=== PATIENT | female | born 1975 | race American Indian/Alaskan Native ===

== ENCOUNTER 2017-10-02 11:30 | Emergency (ER) | payer OTHER ==
[2017-10-02 11:43] VITALS: BP 134/89
--- NOTE | 2017-10-02 12:17 | EDM.PDOC ---
ED HPI GENERAL MEDICAL PROBLEM - General Chief Complaint: Respiratory Problem Stated Complaint: BODY ACHES AND SHOULDER PAIN Time Seen by Provider: 10/02/17 11:44 Source of Information: Reports: Patient History Limitations: Reports: No Limitations - History of Present Illness INITIAL COMMENTS - FREE TEXT/NARRATIVE: Patient is a 42-year-old female comes in today for general body aches and pains. She states she started to feel sick on Thursday 6 days ago and was seen at [facility] on Thursday 3 days ago. She states she had an x-ray at the clinic where they diagnosed right-sided pneumonia as well as a UTI. She was prescribed an albuterol inhaler, acetaminophen 500mg, Phenazopyridine 200mg, Montelukast 10mg, and Levofloxacin 500mg. She states she has been taking all of the medication as prescribed, but has had no relief. She states that it is because continuing to get worse and states she has both pleuritic chest pain as well as right shoulder pain that are currently 10/10. She states she can't sleep at night because of this pain. She does not take any over the counter medications for pain. She states she has fever, chills, nausea, cough with some blood tinged sputum, dizziness upon standing, difficulty walking/unable to drive , and has been around sick contacts with the flu, but not similar symptoms. She denies anorexia, vomiting, diarrhea, bloody stool, dysurea, trauma, headache. She is a smoker, 2-3 per day x2 years, with her last cigarette this past Thursday. No other complaints at this time. Right Shoulder Pain Score (Numeric/FACES): 10 - Related Data Allergies Allergy/AdvReac Type Severity Reaction Status Date / Time No Known Allergies Allergy Verified 05/13/16 17:01 Home Meds: Home Meds Acetaminophen [Mapap] 500 mg PO Q6H PRN 10/02/17 [History] Albuterol [Proair HFA] 2 puff INH Q4H 10/02/17 [History] Levofloxacin 500 mg PO DAILY 10/02/17 [History] Montelukast [Singulair] 10 mg PO BEDTIME 10/02/17 [History] Phenazopyridine [Pyridium] 200 mg PO BID 10/02/17 [History] Past Medical History - Past Health History Medical/Surgical History: Denies Medical/Surgical History Endocrine/Metabolic History: Reports: Obesity/BMI 30+ - Past Surgical History Musculoskeletal Surgical History: Reports: ORIF Social & Family History - Tobacco Use Smoking Status *Q: Current Every Day Smoker Years of Tobacco use: 2 Packs/Tins Daily: 0.3 - Caffeine Use Caffeine Use: Reports: Coffee, Energy Drinks, Soda - Recreational Drug Use Recreational Drug Use: No - Living Situation & Occupation Living situation: Reports: Single, with Family Occupation: Employed ED ROS GENERAL - Review of Systems Review Of Systems: See Below Constitutional: Reports: Fever, Chills, Diaphoresis. Denies: Decreased Appetite HEENT: Reports: Vertigo (dizziness with standing) Respiratory: Reports: Pleuritic Chest Pain (05/05), Cough, Sputum (blood-tinged) Cardiovascular: Reports: No Symptoms Endocrine: Reports: No Symptoms GI/Abdominal: Reports: Nausea. Denies: Abdominal Pain, Anorexia, Bloody Stool, Constipation, Diarrhea, Decreased Appetite, Vomiting : Reports: No Symptoms. Denies: Dysuria, Flank Pain, Hematuria Musculoskeletal: Reports: Shoulder Pain (R shoulder) Skin: Reports: No Symptoms Neurological: Reports: Dizziness (upon standing only), Difficulty Walking (due to pain in general). Denies: Confusion, Headache, Weakness Psychiatric: Reports: Other (tearful) Hematologic/Lymphatic: Reports: No Symptoms Immunologic: Reports: No Symptoms ED EXAM, GENERAL - Physical Exam Exam: See Below Exam Limited By: No Limitations General Appearance: Alert, WD/WN, Severe Distress, Obese Eye Exam: Bilateral Eye: Normal Inspection Ears: Normal External Exam Nose: Normal Inspection Throat/Mouth: Normal Inspection Head: Atraumatic, Normocephalic Neck: Normal Inspection, Supple, Non-Tender, Full Range of Motion Respiratory/Chest: Lungs Clear, Normal Breath Sounds, Other (there is some tenderness of the R shoulder superiorly, moderately severe pain with motion of the R arm). No: Decreased Breath Sounds, Rhonchi, Wheezing Cardiovascular: Normal Peripheral Pulses, Regular Rate, Rhythm GI/Abdominal: Normal Bowel Sounds, Soft, Non-Tender, No Mass. No: Mass Back Exam: Normal Inspection, Full Range of Motion (some pain with movement). No: CVA Tenderness (L), CVA Tenderness (R) Extremities: Normal Inspection, Normal Range of Motion, Non-Tender, Normal Capillary Refill, Other (right shoulder pain 10/10, constant, tender to palpation, difficulty moving arm. ). No: Leg Pain, Increased Warmth, Redness Neurological: Alert, Oriented, No Motor/Sensory Deficits Psychiatric: Normal Affect, Tearful Skin Exam: Warm, Dry, Intact, Other (acanthosis nigricans on back) Lymphatic: No Adenopathy Course - Vital Signs Last Recorded V/S: Last Vital Signs Temp 97.9 F 10/02/17 11:42 Pulse 90 10/02/17 11:42 Resp 20 10/02/17 11:42 BP 134/89 10/02/17 11:42 Pulse Ox 96 10/02/17 11:42 - Orders/Labs/Meds Orders: Active Orders 24 hr Category Date Time Status Peripheral IV Care [RC] . DIRECTED Care 10/02/17 13:32 Active Sodium Chloride 0.9% [Normal Saline] 1,000 ml Med 10/02/17 15:00 Active IV ASDIRECTED Sodium Chloride 0.9% [Normal Saline] 100 ml Med 10/02/17 14:00 Active IV ASDIRECTED Sodium Chloride 0.9% [Saline Flush] Med 10/02/17 13:32 Active 10 ml FLUSH ASDIRECTED PRN Sodium Chloride 0.9% [Saline Flush] Med 10/02/17 13:46 Active 10 ml FLUSH ONETIME PRN Peripheral IV Insertion Adult [OM.PC] Stat Oth 10/02/17 13:32 Ordered Medication Orders Sodium Chloride (Normal Saline) 100 mls @ 65 mls/hr IV ASDIRECTED [facility] Last Admin: 10/02/17 14:21 Dose: 65 mls/hr Sodium Chloride (Normal Saline) 1,000 mls @ 150 mls/hr IV ASDIRECTED NICOLE Last Admin: 10/02/17 14:40 Dose: 150 mls/hr Sodium Chloride (Saline Flush) 10 ml FLUSH ASDIRECTED PRN PRN Reason: Keep Vein Open Last Admin: 10/02/17 14:26 Dose: 10 ml Sodium Chloride (Saline Flush) 10 ml FLUSH ONETIME PRN PRN Reason: IV FLUSH Last Admin: 10/02/17 14:21 Dose: 10 ml Labs: Laboratory Tests 10/02/17 10/02/17 10/02/17 Range/Units 12:52 12:52 12:52 WBC 9.16 (3.98-10.04) K/mm3 RBC 4.56 (3.98-5.22) M/mm3 Hgb 13.3 (11.2-15.7) gm/L Hct 39.6 (34.1-44.9) % MCV 86.8 (79.4-94.8) fl MCH 29.2 (25.6-32.2) pg MCHC 33.6 (32.2-35.5) g/dl RDW Std Deviation 41.6 (36.4-46.3) fL Plt Count 134 L (182-369) K/mm3 MPV 10.3 (9.4-12.3) fl Neutrophils % (Manual) 61 H (40-60) % Band Neutrophils % 0 (0-10) % Lymphocytes % (Manual) 34 (20-40) % Atypical Lymphs % 0 % Monocytes % (Manual) 5 (2-10) % Eosinophils % (Manual) 0 L (0.7-5.8) % Basophils % (Manual) 0 L (0.1-1.2) Platelet Estimate Adequate RBC Morph Comment Normal D-Dimer, Quantitative (0.19-0.59) mg/L Sodium 138 (136-145) mEq/L Potassium 3.4 L (3.5-5.1) mEq/L Chloride 103 (98-107) mEq/L Carbon Dioxide 26 (21-32) mEq/L Anion Gap 12.4 (5-15) BUN 14 (7-18) mg/dL Creatinine 0.7 (0.55-1.02) mg/dL Est Cr Clr Drug Dosing 111.65 mL/min Estimated GFR (MDRD) > 60 (>60) mL/min BUN/Creatinine Ratio 20.0 H (14-18) Glucose 135 H (74-106) mg/dL Calcium 8.4 L (8.5-10.1) mg/dL Total Bilirubin 0.5 (0.2-1.0) mg/dL AST 36 (15-37) U/L ALT 50 (14-59) U/L Alkaline Phosphatase 75 (46-116) U/L C-Reactive Protein 6.0 H* (<1.0) mg/dL Total Protein 6.7 (6.4-8.2) g/dl Albumin 2.3 L (3.4-5.0) g/dl Globulin 4.4 gm/dL Albumin/Globulin Ratio 0.5 L (1-2) Urine Color (Yellow) Urine Appearance (Clear) Urine pH (5.0-8.0) Ur Specific [place] (1.005-1.030) Urine Protein (Negative) Urine Glucose (UA) (Negative) Urine Ketones (Negative) Urine Occult Blood (Negative) Urine Nitrite (Negative) Urine Bilirubin (Negative) Urine Urobilinogen (0.2-1.0) Ur Leukocyte Esterase (Negative) Urine HCG, Qual (NEGATIVE) 10/02/17 10/02/17 10/02/17 Range/Units 12:52 13:40 13:40 WBC (3.98-10.04) K/mm3 RBC (3.98-5.22) M/mm3 Hgb (11.2-15.7) gm/L Hct (34.1-44.9) % MCV (79.4-94.8) fl MCH (25.6-32.2) pg MCHC (32.2-35.5) g/dl RDW Std Deviation (36.4-46.3) fL Plt Count (182-369) K/mm3 MPV (9.4-12.3) fl Neutrophils % (Manual) (40-60) % Band Neutrophils % (0-10) % Lymphocytes % (Manual) (20-40) % Atypical Lymphs % % Monocytes % (Manual) (2-10) % Eosinophils % (Manual) (0.7-5.8) % Basophils % (Manual) (0.1-1.2) Platelet Estimate RBC Morph Comment D-Dimer, Quantitative 1.28 H (0.19-0.59) mg/L Sodium (136-145) mEq/L Potassium (3.5-5.1) mEq/L Chloride (98-107) mEq/L Carbon Dioxide (21-32) mEq/L Anion Gap (5-15) BUN (7-18) mg/dL Creatinine (0.55-1.02) mg/dL Est Cr Clr Drug Dosing mL/min Estimated GFR (MDRD) (>60) mL/min BUN/Creatinine Ratio (14-18) Glucose (74-106) mg/dL Calcium (8.5-10.1) mg/dL Total Bilirubin (0.2-1.0) mg/dL AST (15-37) U/L ALT (14-59) U/L Alkaline Phosphatase (46-116) U/L C-Reactive Protein (<1.0) mg/dL Total Protein (6.4-8.2) g/dl Albumin (3.4-5.0) g/dl Globulin gm/dL Albumin/Globulin Ratio (1-2) Urine Color Dark yellow (Yellow) Urine Appearance Clear (Clear) Urine pH 7.0 (5.0-8.0) Ur Specific [place] 1.015 (1.005-1.030) Urine Protein 1+ H (Negative) Urine Glucose (UA) Trace H (Negative) Urine Ketones Negative (Negative) Urine Occult Blood Trace-intact H (Negative) Urine Nitrite Positive H (Negative) Urine Bilirubin Negative (Negative) Urine Urobilinogen 1.0 (0.2-1.0) Ur Leukocyte Esterase Negative (Negative) Urine HCG, Qual Negative (NEGATIVE) Meds: Medications Generic Name Dose Route Start Last Admin Trade Name Freq PRN Reason Stop Dose Admin Sodium Chloride 100 mls @ 65 mls/hr 10/02/17 14:00 10/02/17 14:21 Normal Saline IV 65 mls/hr ASDIRECTED NICOLE Administration Sodium Chloride 1,000 mls @ 150 mls/hr 10/02/17 15:00 10/02/17 14:40 Normal Saline IV 150 mls/hr ASDIRECTED NICOLE Administration Sodium Chloride 10 ml 10/02/17 13:32 10/02/17 14:26 Saline Flush FLUSH 10 ml ASDIRECTED PRN Administration Keep Vein Open Sodium Chloride 10 ml 10/02/17 13:46 10/02/17 14:21 Saline Flush FLUSH 10 ml ONETIME PRN Administration IV FLUSH Discontinued Medications Generic Name Dose Route Start Last Admin Trade Name Freq PRN Reason Stop Dose Admin Hydrocodone Bitart/Acetaminophen 1 tab 10/02/17 12:40 10/02/17 12:54 [place] 325-5 Mg PO 10/02/17 12:41 1 tab ONETIME ONE Administration Sodium Chloride 500 mls @ 999 mls/hr 10/02/17 13:32 10/02/17 13:53 Normal Saline IV 10/02/17 14:02 999 mls/hr .BOLUS ONE Administration Iopamidol 100 ml 10/02/17 13:46 10/02/17 14:21 [id number] (76%) IVPUSH 10/02/17 13:47 100 ml ONETIME ONE Administration Iopamidol 50 ml 10/02/17 13:46 10/02/17 14:21 Isovue-370 (76%) IVPUSH 10/02/17 13:47 50 ml ONETIME ONE Administration Ketorolac Tromethamine 60 mg 10/02/17 12:39 10/02/17 12:55 Toradol IM 10/02/17 12:40 60 mg ONETIME ONE Administration Lorazepam 1 mg 10/02/17 12:40 10/02/17 12:54 Ativan PO 10/02/17 12:41 1 mg ONETIME ONE Administration Morphine Sulfate 10 mg 10/02/17 13:32 10/02/17 13:55 Morphine IVPUSH 10/02/17 13:33 10 mg ONETIME ONE Administration Ondansetron HCl 4 mg 10/02/17 14:00 10/02/17 14:25 Zofran IVPUSH 10/02/17 14:01 4 mg ONETIME ONE Administration - Re-Assessments/Exams Free Text/Narrative Re-Assessment/Exam: 10/02/17 14:14 WBC 9,000, normal dif, CRP mildly elevated at 6. CXR shows multiple areas of patchy infiltrate L lung field, see Radiology report for details. D dimer elevated at 1.2. Torodol IM, hydrocodone, ativan PO has not noticeably helped her pain, Will give morphine 5 mg IV, will check CT pul angio to R/O PE, to R/ O mets to lung. 10/02/17 15:44. CT shows multiple bilat. nodules, question etiology, may be infections but may also be mets, see Radiology report for details, will transfer to [facility] per patient request to sort this out, R/O or in metastatic disease, establish true dx. Dr Peterson, Hospitalist accepting Physician. She has had 10 mg morphine in addition to intial meds given, pain is once again getting worse, giving an addition 4 mg morphine IV now. Will transfer by ground ambulance for appropriate cardioresp. monitering, pain control for transfer. Departure - Departure Time of Disposition: 16:12 Disposition: DC/Tfer to [facility] 02 Condition: Serious Clinical Impression: Multiple lung nodules on CT, Atypical chest pain - Discharge Information Referrals: PCP,None [Primary Care Provider] - Forms: ED Department Discharge - My Orders Last 24 Hours: My Active Orders 10/02/17 13:32 Peripheral IV Care [RC] . DIRECTED Sodium Chloride 0.9% [Saline Flush] 10 ml FLUSH ASDIRECTED PRN Peripheral IV Insertion Adult [OM.PC] Stat 10/02/17 13:46 Sodium Chloride 0.9% [Saline Flush] 10 ml FLUSH ONETIME PRN 10/02/17 14:00 Sodium Chloride 0.9% [Normal Saline] 100 ml IV ASDIRECTED 10/02/17 15:00 Sodium Chloride 0.9% [Normal Saline] 1,000 ml IV ASDIRECTED - Assessment/Plan Last 24 Hours: My Active Orders 10/02/17 13:32 Peripheral IV Care [RC] . DIRECTED Sodium Chloride 0.9% [Saline Flush] 10 ml FLUSH ASDIRECTED PRN Peripheral IV Insertion Adult [OM.PC] Stat 10/02/17 13:46 Sodium Chloride 0.9% [Saline Flush] 10 ml FLUSH ONETIME PRN 10/02/17 14:00 Sodium Chloride 0.9% [Normal Saline] 100 ml IV ASDIRECTED 10/02/17 15:00 Sodium Chloride 0.9% [Normal Saline] 1,000 ml IV ASDIRECTED
[2017-10-02] MEDS ORDERED: Ketorolac 60 MG/2 ML SDV IM ONE (12:39)
[2017-10-02] MEDS ORDERED: LORazepam 1 MG Tab PO ONE (12:40)
[2017-10-02] MEDS ORDERED: Acetaminophen/HYDROcodone 325-5 MG Tab PO ONE (12:40)
--- NOTE | 2017-10-02 13:08 | CR ---
Chest: Two views of the chest were obtained. Comparison: Prior chest x-ray of 08/11/16. Patchy nodular densities are seen within the left lung. Small area of consolidation noted within the right upper lung. Heart size and mediastinum are normal. Bony structures are unremarkable. Impression: 1. Patchy nodular densities within the left lung as well as area of consolidation within the right upper lung. Findings most likely represent multifocal areas of pneumonia. Recommend follow-up chest x-ray after clinical therapy is complete to make sure this does not represent other etiology. Diagnostic code #3
[2017-10-02] MEDS ORDERED: Sodium Chloride 0.9% 10 ML Syringe FLUSH PRN ×2 (13:32→13:46)
[2017-10-02] MEDS ORDERED: Sodium Chloride 0.9% 500 ML IV ONE (13:32)
[2017-10-02] MEDS ORDERED: Iopamidol 755 Mg/ML 100 ML Bottle IVPUSH ONE (13:46)
[2017-10-02] MEDS ORDERED: Iopamidol 755 MG/ML 50 ML Bottle IVPUSH ONE (13:46)
[2017-10-02] MEDS: Morphine 10 MG/ML Syringe IVPUSH ONE ×2 (13:55→17:00)
[2017-10-02] MEDS ORDERED: Morphine 10 MG/ML Syringe IVPUSH STA ×2 (13:55→15:12)
[2017-10-02] MEDS ORDERED: Sodium Chloride 0.9% 100 ML IV SCH (14:00)
[2017-10-02] MEDS ORDERED: Ondansetron 4 MG/2 ML SDV IVPUSH ONE (14:00)
--- NOTE | 2017-10-02 14:45 | CT ---
CT chest Technique: Multiple axial sections through the chest were obtained. Intravenous contrast was utilized. Study performed as a pulmonary angiogram protocol. Findings: Pulmonary arteries are not optimally opacified. No filling defects are seen to indicate pulmonary embolism within the main pulmonary arteries or within segmental branches. Smaller subsegmental pulmonary emboli could easily be missed. Mediastinum and hilar regions show no adenopathy or mass. No pericardial thickening is seen. Small portion of the visualized upper abdominal structures are within normal limits. Small bilateral pleural effusions are seen. Nodular densities are seen within both lungs. More focal consolidation noted within the right upper lung. Findings could represent septic emboli, atypical pneumonia as well as multifocal pneumonia. Fungal infection is also a possibility as well as metastatic disease. Bone window settings were reviewed which shows no thickening acute. Impression: 1. Less than optimal opacification of the pulmonary arteries. No findings of pulmonary embolism within the main or segmental branches. Smaller subsegmental pulmonary emboli could easily be missed. 2. Numerous nodular densities within both lungs with more focal consolidation within the upper right lung. Differential as described above. Diagnostic code #9
[2017-10-02] MEDS ORDERED: Sodium Chloride 0.9% 1,000 ML IV SCH (15:00)
[2017-10-02] MEDS ORDERED: Morphine 4 MG/ML Syringe IVPUSH ONE (16:07)
[2017-10-02] MEDS ORDERED: Morphine 4 MG/ML Syringe ONE (16:14)
== END 2017-10-02 16:15 ==
LOC: JD.ED 11:30
DX: R07.89 Other chest pain (principal); M25.511 Pain in right shoulder; R91.1 Solitary pulmonary nodule; F17.210 Nicotine dependence, cigarettes, uncomplicated; Z79.2 Long term (current) use of antibiotics
CPT/HCPCS: 36415; 71046; 71275; 80053; 81003; 81025; 85025; 85379; 86140; 87804; 96361; 96372; 96374; 96375; 96376; 99285; A9270; J1885; J2270; J2405; J7030; J7040; J7050; Q9967

== ENCOUNTER 2017-10-26 13:22 | Emergency (ER) | payer OTHER ==
[2017-10-26 13:41] VITALS: BP 113/58
[2017-10-26] MEDS ORDERED: Sodium Chloride 0.9% 1,000 ML IV STA (13:41)
[2017-10-26] MEDS ORDERED: Ondansetron 4 MG/2 ML SDV IVPUSH ONE (13:41)
[2017-10-26] MEDS ORDERED: Sodium Chloride 0.9% 10 ML Syringe FLUSH PRN ×2 (13:41→14:22)
[2017-10-26] MEDS ORDERED: HYDROmorphone 0.5 MG/0.5 ML SYRINGE IVPUSH ONE ×2 (13:43→16:10)
[2017-10-26] MEDS ORDERED: Diatrizoate Meglumine/Diatrizoate Sodium 37% 120 ML Bottle PO ONE (14:22)
[2017-10-26] MEDS ORDERED: Iopamidol 612 MG/ML 150 ML Bottle IVPUSH ONE (14:22)
--- NOTE | 2017-10-26 14:45 | EDM.PDOC ---
ED HPI GENERAL MEDICAL PROBLEM - General Chief Complaint: Abdominal Pain Stated Complaint: L SIDE ABD PAIN Time Seen by Provider: 10/26/17 13:37 Source of Information: Reports: Patient History Limitations: Reports: No Limitations - History of Present Illness INITIAL COMMENTS - FREE TEXT/NARRATIVE: The patient presents with left upper abdominal pain. This started a couple days ago. She has nausea but no vomiting. She has been able to eat but she gets more nauseated. She has no fever, chills, cough, chest pain, dysuria or diarrhea. She still has her gallbladder and appendix. She does not think she is . Onset: Gradual Duration: Day(s): (2) Location: Reports: Abdomen (LUQ) Quality: Reports: Sharp Severity: Severe Improves with: Reports: None Worsens with: Reports: None Associated Symptoms: Reports: Nausea/Vomiting. Denies: Chest Pain, Cough, Fever /Chills, Headaches, Shortness of Breath Left Abdominal Pain Score (Numeric/FACES): 10 - Related Data Allergies Allergy/AdvReac Type Severity Reaction Status Date / Time No Known Allergies Allergy Verified 10/26/17 13:37 Home Meds: Home Meds Hydrocodone/Acetaminophen [Hydrocodon-Acetaminophen 5-325] 1 - 2 each PO Q6HR PRN #20 tablet 10/26/17 [Rx] Omeprazole Magnesium [Prilosec Otc] 20 mg PO DAILY #14 tablet.dr 10/26/17 [Rx] Ondansetron [Zofran ODT] 4 mg PO Q6H PRN #20 tab.dis 10/26/17 [Rx] Potassium Chloride 20 meq PO DAILY #30 tablet.er 10/26/17 [Rx] metFORMIN [Glucophage XR] 500 mg PO DAILY #30 tab.er 10/26/17 [Rx] Past Medical History - Past Health History Medical/Surgical History: Denies Medical/Surgical History Endocrine/Metabolic History: Reports: Obesity/BMI 30+ - Past Surgical History Musculoskeletal Surgical History: Reports: ORIF Social & Family History - Tobacco Use Smoking Status *Q: Current Every Day Smoker Years of Tobacco use: 20 Packs/Tins Daily: 0.1 - Caffeine Use Caffeine Use: Reports: Coffee, Energy Drinks, Soda - Recreational Drug Use Recreational Drug Use: No - Living Situation & Occupation Living situation: Reports: Single, with Family Occupation: Employed ED ROS GENERAL - Review of Systems Review Of Systems: See Below Constitutional: Reports: No Symptoms HEENT: Reports: No Symptoms Respiratory: Reports: No Symptoms Cardiovascular: Reports: No Symptoms Endocrine: Reports: No Symptoms GI/Abdominal: Reports: Abdominal Pain, Nausea. Denies: Diarrhea, Vomiting : Reports: No Symptoms Musculoskeletal: Reports: No Symptoms ED EXAM, GI/ABD - Physical Exam Exam: See Below Exam Limited By: No Limitations General Appearance: Alert, No Apparent Distress Ears: Normal External Exam Nose: Normal Inspection Head: Atraumatic, Normocephalic Neck: Normal Inspection Respiratory/Chest: No Respiratory Distress, Lungs Clear, Normal Breath Sounds Cardiovascular: Regular Rate, Rhythm, No Edema, No Murmur GI/Abdominal Exam: Soft, No Organomegaly, No Mass, Tender (Moderate tenderness to the LUQ) Back Exam: Normal Inspection Extremities: Normal Inspection Neurological: Alert, Oriented, No Motor/Sensory Deficits Course - Vital Signs Last Recorded V/S: Last Vital Signs Temp 95.3 F L 10/26/17 13:37 Pulse 115 H 10/26/17 13:37 Resp 20 10/26/17 13:37 BP 113/58 L 10/26/17 13:37 Pulse Ox 96 10/26/17 13:37 - Orders/Labs/Meds Orders: Active Orders 24 hr Category Date Time Status Peripheral IV Care [RC] . DIRECTED Care 10/26/17 13:42 Active UA W/MICROSCOPIC [URIN] Stat Lab 10/26/17 16:17 Ordered Sodium Chloride 0.9% [Saline Flush] Med 10/26/17 13:41 Active 10 ml FLUSH ASDIRECTED PRN Sodium Chloride 0.9% [Saline Flush] Med 10/26/17 14:22 Active 10 ml FLUSH ONETIME PRN ED Antiemetic Medication Reflex [OM.PC] Stat Oth 10/26/17 13:41 Ordered Peripheral IV Insertion Adult [OM.PC] Stat Oth 10/26/17 13:41 Ordered Medication Orders Sodium Chloride (Saline Flush) 10 ml FLUSH ASDIRECTED PRN PRN Reason: Keep Vein Open Last Admin: 10/26/17 14:05 Dose: 10 ml Sodium Chloride (Saline Flush) 10 ml FLUSH ONETIME PRN PRN Reason: IV FLUSH Last Admin: 10/26/17 15:07 Dose: 10 ml Labs: Laboratory Tests 10/26/17 10/26/17 10/26/17 Range/Units 14:35 14:35 14:35 WBC 10.38 H (3.98-10.04) K/mm3 RBC 4.68 (3.98-5.22) M/mm3 Hgb 13.8 (11.2-15.7) gm/L Hct 41.7 (34.1-44.9) % MCV 89.1 (79.4-94.8) fl MCH 29.5 (25.6-32.2) pg MCHC 33.1 (32.2-35.5) g/dl RDW Std Deviation 46.5 H (36.4-46.3) fL Plt Count 206 (182-369) K/mm3 MPV 8.9 L (9.4-12.3) fl Neut % (Auto) 92.4 H (34.0-71.1) % Lymph % (Auto) 4.3 L (19.3-51.7) % [place] % (Auto) 2.5 L (4.7-12.5) % Eos % (Auto) 0.3 L (0.7-5.8) Baso % (Auto) 0.1 (0.1-1.2) % Neut # (Auto) 9.59 H (1.56-6.13) K/mm3 Lymph # (Auto) 0.45 L (1.18-3.74) K/mm3 [place] # (Auto) 0.26 (0.24-0.36) K/mm3 Eos # (Auto) 0.03 L (0.04-0.36) K/mm3 Baso # (Auto) 0.01 (0.01-0.08) K/mm3 Manual Slide Review Normal smear Sodium 139 (136-145) mEq/L Potassium 2.9 L (3.5-5.1) mEq/L Chloride 102 (98-107) mEq/L Carbon Dioxide 23 (21-32) mEq/L Anion Gap 16.9 H (5-15) BUN 11 (7-18) mg/dL Creatinine 1.3 H (0.55-1.02) mg/dL Est Cr Clr Drug Dosing 60.12 mL/min Estimated GFR (MDRD) 45 (>60) mL/min BUN/Creatinine Ratio 8.5 L (14-18) Glucose 200 H (74-106) mg/dL Hemoglobin A1c (4.50-6.20) % Calcium 8.8 (8.5-10.1) mg/dL Total Bilirubin 1.7 H (0.2-1.0) mg/dL AST 43 H (15-37) U/L ALT 49 (14-59) U/L Alkaline Phosphatase 96 (46-116) U/L Troponin I < 0.017 (0.00-0.056) ng/mL Total Protein 8.2 (6.4-8.2) g/dl Albumin 3.0 L (3.4-5.0) g/dl Globulin 5.2 gm/dL Albumin/Globulin Ratio 0.6 L (1-2) Lipase 60 L (73-393) U/L HCG, Qual Negative (NEGATIVE) 10/26/17 Range/Units 14:35 WBC (3.98-10.04) K/mm3 RBC (3.98-5.22) M/mm3 Hgb (11.2-15.7) gm/L Hct (34.1-44.9) % MCV (79.4-94.8) fl MCH (25.6-32.2) pg MCHC (32.2-35.5) g/dl RDW Std Deviation (36.4-46.3) fL Plt Count (182-369) K/mm3 MPV (9.4-12.3) fl Neut % (Auto) (34.0-71.1) % Lymph % (Auto) (19.3-51.7) % [place] % (Auto) (4.7-12.5) % Eos % (Auto) (0.7-5.8) Baso % (Auto) (0.1-1.2) % Neut # (Auto) (1.56-6.13) K/mm3 Lymph # (Auto) (1.18-3.74) K/mm3 [place] # (Auto) (0.24-0.36) K/mm3 Eos # (Auto) (0.04-0.36) K/mm3 Baso # (Auto) (0.01-0.08) K/mm3 Manual Slide Review Sodium (136-145) mEq/L Potassium (3.5-5.1) mEq/L Chloride (98-107) mEq/L Carbon Dioxide (21-32) mEq/L Anion Gap (5-15) BUN (7-18) mg/dL Creatinine (0.55-1.02) mg/dL Est Cr Clr Drug Dosing mL/min Estimated GFR (MDRD) (>60) mL/min BUN/Creatinine Ratio (14-18) Glucose (74-106) mg/dL Hemoglobin A1c 6.60 H (4.50-6.20) % Calcium (8.5-10.1) mg/dL Total Bilirubin (0.2-1.0) mg/dL AST (15-37) U/L ALT (14-59) U/L Alkaline Phosphatase (46-116) U/L Troponin I (0.00-0.056) ng/mL Total Protein (6.4-8.2) g/dl Albumin (3.4-5.0) g/dl Globulin gm/dL Albumin/Globulin Ratio (1-2) Lipase (73-393) U/L HCG, Qual (NEGATIVE) Meds: Medications Generic Name Dose Route Start Last Admin Trade Name Freq PRN Reason Stop Dose Admin Sodium Chloride 10 ml 10/26/17 13:41 10/26/17 14:05 Saline Flush FLUSH 10 ml ASDIRECTED PRN Administration Keep Vein Open Sodium Chloride 10 ml 10/26/17 14:22 10/26/17 15:07 Saline Flush FLUSH 10 ml ONETIME PRN Administration IV FLUSH Discontinued Medications Generic Name Dose Route Start Last Admin Trade Name Freq PRN Reason Stop Dose Admin Diatrizoate Meglum/Diatrizoate Sod 90 ml 10/26/17 14:22 10/26/17 15:07 Gastrografin 37% PO 10/26/17 14:23 90 ml ONETIME ONE Administration Hydromorphone HCl 1 mg 10/26/17 13:43 10/26/17 14:05 Dilaudid IVPUSH 10/26/17 13:44 1 mg ONETIME ONE Administration Hydromorphone HCl 0.5 mg 10/26/17 16:10 Dilaudid IVPUSH 10/26/17 16:11 ONETIME ONE Sodium Chloride 1,000 mls @ 1,000 mls/hr 10/26/17 13:41 10/26/17 14:06 Normal Saline IV 10/26/17 14:40 1,000 mls/hr .BOLUS STA Administration Iopamidol 125 ml 10/26/17 14:22 10/26/17 15:07 Isovue-300 (61%) IVPUSH 10/26/17 14:23 125 ml ONETIME ONE Administration Ondansetron HCl 4 mg 10/26/17 13:41 10/26/17 14:05 Zofran IVPUSH 10/26/17 13:42 4 mg ONETIME ONE Administration - Re-Assessments/Exams Free Text/Narrative Re-Assessment/Exam: 10/26/17 14:47 I ordered an IV NS 1L bolus, zofran 4mg IV, dilaudid 1mg IV, labs, UA and a CT of her abdomen and pelvis. 10/26/17 16:32 Her WBC was slightly elevated at 10.38. Her K was low at 2.9. Her anion gap was elevated at 16.9. Her creatinine was elevated at 1.3. Her glucose was elevated at 200. Her Hgb A1C was elevated at 6.6. Her troponin was negative. Her lipase was low at 60. Her HCG was negative. Her CT shows incidental findings. Nothing acute is seen on CT study of the abdomen and pelvis. Delayed images shows no contrast within the bladder raising the possibility of dehydration. Her UA is not back yet. It appears she has diabetes. I will get her on some metformin. I also want to try a GI cocktail Departure - Departure Time of Disposition: 16:40 Disposition: Home, Self-Care 01 Condition: Good Clinical Impression: Hypokalemia Abdominal pain Qualifiers: Abdominal location: left upper quadrant Qualified Code(s): R10.12 - Left upper quadrant pain Gastritis Qualifiers: Gastritis type: unspecified gastritis Chronicity: acute Gastritis bleeding: without bleeding Qualified Code(s): K29.00 - Acute gastritis without bleeding Diabetes type 2, controlled Qualifiers: Diabetes mellitus alf insulin use: without alf use Diabetes mellitus complication status: without complication Qualified Code(s): E11.9 - Type 2 diabetes mellitus without complications - Discharge Information Prescriptions: Hydrocodone/Acetaminophen [Hydrocodon-Acetaminophen 5-325] 1 - 2 each PO Q6HR PRN #20 tablet PRN Reason: Pain metFORMIN [Glucophage XR] 500 mg PO DAILY #30 tab.er Omeprazole Magnesium [Prilosec Otc] 20 mg PO DAILY #14 tablet. Ondansetron [Zofran ODT] 4 mg PO Q6H PRN #20 tab.dis PRN Reason: Nausea\vomiting Potassium Chloride 20 meq PO DAILY #30 tablet.er Referrals: PCP,None [Primary Care Provider] - Casey Ding [Physician] - 1 Week Forms: ED Department Discharge Additional Instructions: Take your medication as prescribed. Try to eat a healthy diet with plenty of protein and vegetables. Limit your carbs such as sugars and breads. Follow up with Dr Ding withing 1 week. Please return if you are worse. - My Orders Last 24 Hours: My Active Orders 10/26/17 13:41 Sodium Chloride 0.9% [Saline Flush] 10 ml FLUSH ASDIRECTED PRN ED Antiemetic Medication Reflex [OM.PC] Stat Peripheral IV Insertion Adult [OM.PC] Stat 10/26/17 13:42 Peripheral IV Care [RC] . DIRECTED 10/26/17 14:22 Sodium Chloride 0.9% [Saline Flush] 10 ml FLUSH ONETIME PRN 10/26/17 16:17 UA W/MICROSCOPIC [URIN] Stat - Assessment/Plan Last 24 Hours: My Active Orders 10/26/17 13:41 Sodium Chloride 0.9% [Saline Flush] 10 ml FLUSH ASDIRECTED PRN ED Antiemetic Medication Reflex [OM.PC] Stat Peripheral IV Insertion Adult [OM.PC] Stat 10/26/17 13:42 Peripheral IV Care [RC] . DIRECTED 10/26/17 14:22 Sodium Chloride 0.9% [Saline Flush] 10 ml FLUSH ONETIME PRN 10/26/17 16:17 UA W/MICROSCOPIC [URIN] Stat
--- NOTE | 2017-10-26 15:41 | CT ---
CT abdomen and pelvis Technique: Multiple axial sections were obtained from above the dome of the diaphragm inferiorly through the pubic symphysis. Intravenous and oral contrast was utilized. Delayed images were also obtained through the bladder. Comparison: Previous CT abdomen and pelvis exam performed as a ureteral stone protocol dated 05/11/16. Findings: Visualized lung bases shows slight parenchymal change most likely due to atelectasis or scarring on both sides. Mild extrapleural fat is seen within the posterior left lung base which is incidental. Liver shows mild fatty infiltration without focal abnormality seen within the liver. Spleen appears within normal limits. Adrenal glands show no nodule. Pancreas is within normal limits. Gallbladder contains no calcified gallstones. Aorta shows no aneurysmal dilatation. No retroperitoneal adenopathy or mesenteric abnormalities are seen. Fat-containing umbilical hernia is noted. No pelvic mass or adenopathy is seen. Appendix is seen which appears normal in size. Delayed images shows no contrast within the bladder raising the possibility of dehydration. Bone window settings shows disc space narrowing and vacuum phenomena within the L4-L5 disc. Mild disc space narrowing and vacuum phenomena noted within the L5-S1 disc. Impression: 1. Incidental findings as noted above. Nothing acute is seen on CT study of the abdomen and pelvis. 2. Delayed images shows no contrast within the bladder raising the possibility of dehydration. Diagnostic code #3
[2017-10-26] MEDS ORDERED: Alum Hydrox/Mag Hydrox/Simeth 30 ML, Lidocaine 2% 15 ML PO ONE ×2 (16:32)
== END 2017-10-26 17:39 | disposition home or self-care (01) ==
LOC: JD.ED 13:22
DX: K29.00 Acute gastritis without bleeding (principal); E87.6 Hypokalemia; E11.9 Type 2 diabetes mellitus without complications; E66.9 Obesity, unspecified; F17.210 Nicotine dependence, cigarettes, uncomplicated; Z79.899 Other long term (current) drug therapy; Z79.84 Long term (current) use of oral hypoglycemic drugs; Z68.42 Body mass index [BMI] 45.0-49.9, adult
CPT/HCPCS: 36415; 74177; 80053; 81001; 83036; 83690; 84484; 84703; 85025; 96361; 96374; 96375; 96376; 99284; A9270; J1170; J2405; J7040; J7050; Q9963; Q9967

== ENCOUNTER 2017-10-29 09:20 | Emergency (ER) | payer OTHER ==
[2017-10-29 09:31] VITALS: BP 139/75
[2017-10-29] MEDS ORDERED: Ketorolac 60 MG/2 ML SDV IM ONE (10:13)
[2017-10-29] MEDS ORDERED: predniSONE 20 MG Tab PO ONE (10:13)
--- NOTE | 2017-10-29 10:14 | EDM.PDOC ---
ED HPI GENERAL MEDICAL PROBLEM - General Chief Complaint: Upper Extremity Injury/Pain Stated Complaint: [facility] Time Seen by Provider: 10/29/17 09:32 Source of Information: Reports: Patient, RN Notes Reviewed - History of Present Illness INITIAL COMMENTS - FREE TEXT/NARRATIVE: 42 year old female has arrived by [facility] with sx of severe bilateral shoulder pain that has been present for several days but worse today. 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 No recent fall or injury. No fever chills. Mild intermitent tightness upper ant chest. Occasional cough, not short of breath. No fever, chills, nausea or vomiting. Was having upper abd pain about a week ago but that is gone. Has been eating and drinking OK. Bilateral Shoulder Pain Score (Numeric/FACES): 10 - Related Data Allergies Allergy/AdvReac Type Severity Reaction Status Date / Time No Known Allergies Allergy Verified 10/29/17 09:31 Home Meds: Home Meds Hydrocodone/Acetaminophen [Hydrocodon-Acetaminophen 5-325] 1 - 2 each PO Q6HR PRN #20 tablet 10/26/17 [Rx] Omeprazole Magnesium [Prilosec Otc] 20 mg PO DAILY #14 tablet. 10/26/17 [Rx] Ondansetron [Zofran ODT] 4 mg PO Q6H PRN #20 tab.dis 10/26/17 [Rx] Potassium Chloride 20 meq PO DAILY #30 tablet.er 10/26/17 [Rx] metFORMIN [Glucophage XR] 500 mg PO DAILY #30 tab.er 10/26/17 [Rx] oxyCODONE HCl/Acetaminophen [Percocet 5-325 mg Tablet] 1 each PO Q6HR PRN #20 tablet 10/29/17 [Rx] Past Medical History - Past Health History Medical/Surgical History: Denies Medical/Surgical History Endocrine/Metabolic History: Reports: Obesity/BMI 30+ - Past Surgical History Musculoskeletal Surgical History: Reports: ORIF Social & Family History - Tobacco Use Smoking Status *Q: Never Smoker Years of Tobacco use: 20 Packs/Tins Daily: 0.1 - Caffeine Use Caffeine Use: Reports: None - Recreational Drug Use Recreational Drug Use: No - Living Situation & Occupation Living situation: Reports: Single, with Family Occupation: Employed Review of Systems - Review of Systems Review Of Systems: See Below Constitutional: Denies: Chills, Fever Eyes: Reports: No Symptoms Ears: Reports: No Symptoms Nose: Reports: No Symptoms Mouth/Throat: Reports: No Symptoms Respiratory: Denies: Shortness of Breath, Wheezing, Pleuritic Chest Pain Cardiovascular: Reports: Chest Pain (occasional tightness upper ant chest. ) GI/Abdominal: Denies: Abdominal Pain, Nausea, Vomiting Musculoskeletal: Reports: Shoulder Pain (bilat. ). Denies: Neck Pain Skin: Reports: No Symptoms Neurological: Denies: Headache, Numbness, Tingling, Trouble Speaking, Difficulty Walking, Weakness ED EXAM, GENERAL - Physical Exam Exam: See Below General Appearance: Alert, Moderate Distress Eye Exam: Bilateral Eye: PERRL Throat/Mouth: Normal Inspection, Normal Oropharynx Head: Atraumatic Neck: Supple, Full Range of Motion Respiratory/Chest: No Respiratory Distress, Lungs Clear, Normal Breath Sounds. No: Rhonchi, Wheezing Cardiovascular: Regular Rate, Rhythm GI/Abdominal: Soft, Non-Tender. No: Guarding, Rebound Back Exam: No: CVA Tenderness (L), CVA Tenderness (R) Extremities: Other (quite severe tenderness bilat shoulders superiorly, anteriorly, quite severe pain with motion bith shoulders, not warm, swollen or erythematous, other joints are not swollen or tender). No: Joint Swelling, Increased Warmth, Redness Skin Exam: Warm, Dry, Normal Color EKG INTERPRETATION EKG Date: 10/29/17 Rhythm: NSR [place]: Normal P-Wave: Present QRS: Normal ST-T: Normal Course - Vital Signs Last Recorded V/S: Last Vital Signs Temp 97.5 F 10/29/17 09:28 Pulse 99 10/29/17 09:28 Resp 20 10/29/17 09:28 BP 139/75 10/29/17 09:28 Pulse Ox 95 10/29/17 09:28 - Orders/Labs/Meds Orders: Active Orders 24 hr Category Date Time Status EKG 12 Lead [EKG Documentation Completion] [RC] STAT Care 10/29/17 10:12 Active Labs: Laboratory Tests 10/29/17 10/29/17 10/29/17 Range/Units 10:28 10:28 10:28 WBC 9.78 (3.98-10.04) K/mm3 RBC 3.98 (3.98-5.22) M/mm3 Hgb 11.7 (11.2-15.7) gm/L Hct 35.4 (34.1-44.9) % MCV 88.9 (79.4-94.8) fl MCH 29.4 (25.6-32.2) pg MCHC 33.1 (32.2-35.5) g/dl RDW Std Deviation 47.3 H (36.4-46.3) fL Plt Count 84 L (182-369) K/mm3 MPV 10.5 (9.4-12.3) fl Neut % (Auto) 74.1 H (34.0-71.1) % Lymph % (Auto) 14.4 L (19.3-51.7) % [place] % (Auto) 9.9 (4.7-12.5) % Eos % (Auto) 1.1 (0.7-5.8) Baso % (Auto) 0.2 (0.1-1.2) % Neut # (Auto) 7.24 H (1.56-6.13) K/mm3 Lymph # (Auto) 1.41 (1.18-3.74) K/mm3 [place] # (Auto) 0.97 H (0.24-0.36) K/mm3 Eos # (Auto) 0.11 (0.04-0.36) K/mm3 Baso # (Auto) 0.02 (0.01-0.08) K/mm3 Manual Slide Review Abnormal smear ESR 56 H (0-20) mm/hr Sodium (136-145) mEq/L Potassium (3.5-5.1) mEq/L Chloride (98-107) mEq/L Carbon Dioxide (21-32) mEq/L Anion Gap (5-15) BUN (7-18) mg/dL Creatinine (0.55-1.02) mg/dL Est Cr Clr Drug Dosing mL/min Estimated GFR (MDRD) (>60) mL/min BUN/Creatinine Ratio (14-18) Glucose (74-106) mg/dL Calcium (8.5-10.1) mg/dL Total Bilirubin (0.2-1.0) mg/dL AST (15-37) U/L ALT (14-59) U/L Alkaline Phosphatase (46-116) U/L C-Reactive Protein 24.3 H* (<1.0) mg/dL Total Protein (6.4-8.2) g/dl Albumin (3.4-5.0) g/dl Globulin gm/dL Albumin/Globulin Ratio (1-2) 10/29/ Range/Units 10:28 WBC (3.98-10.04) K/mm3 RBC (3.98-5.22) M/mm3 Hgb (11.2-15.7) gm/L Hct (34.1-44.9) % MCV (79.4-94.8) fl MCH (25.6-32.2) pg MCHC (32.2-35.5) g/dl RDW Std Deviation (36.4-46.3) fL Plt Count (182-369) K/mm3 MPV (9.4-12.3) fl Neut % (Auto) (34.0-71.1) % Lymph % (Auto) (19.3-51.7) % [place] % (Auto) (4.7-12.5) % Eos % (Auto) (0.7-5.8) Baso % (Auto) (0.1-1.2) % Neut # (Auto) (1.56-6.13) K/mm3 Lymph # (Auto) (1.18-3.74) K/mm3 [place] # (Auto) (0.24-0.36) K/mm3 Eos # (Auto) (0.04-0.36) K/mm3 Baso # (Auto) (0.01-0.08) K/mm3 Manual Slide Review ESR (0-20) mm/hr Sodium 143 (136-145) mEq/L Potassium 3.9 (3.5-5.1) mEq/L Chloride 107 (98-107) mEq/L Carbon Dioxide 25 (21-32) mEq/L Anion Gap 14.9 (5-15) BUN 14 (7-18) mg/dL Creatinine 0.8 (0.55-1.02) mg/dL Est Cr Clr Drug Dosing 97.69 mL/min Estimated GFR (MDRD) > 60 (>60) mL/min BUN/Creatinine Ratio 17.5 (14-18) Glucose 162 H (74-106) mg/dL Calcium 8.6 (8.5-10.1) mg/dL Total Bilirubin 0.4 (0.2-1.0) mg/dL AST 21 (15-37) U/L ALT 25 (14-59) U/L Alkaline Phosphatase 91 (46-116) U/L C-Reactive Protein (<1.0) mg/dL Total Protein 7.0 (6.4-8.2) g/dl Albumin 2.2 L (3.4-5.0) g/dl Globulin 4.8 gm/dL Albumin/Globulin Ratio 0.5 L (1-2) Meds: Medications Discontinued Medications Generic Name Dose Route Start Last Admin Trade Name Freq PRN Reason Stop Dose Admin Acetaminophen 975 mg 10/29/17 12:59 Tylenol PO 10/29/17 13:00 NOW ONE Hydromorphone HCl 2 mg 10/29/17 12:58 10/29/17 13:44 Dilaudid IM 10/29/17 12:59 2 mg ONETIME ONE Administration Ketorolac Tromethamine 60 mg 10/29/17 10:13 10/29/17 10:33 Toradol IM 10/29/17 10:14 60 mg ONETIME ONE Administration Prednisone 60 mg 10/29/17 10:13 10/29/17 10:34 Prednisone PO 10/29/17 10:14 60 mg ONETIME ONE Administration - Re-Assessments/Exams Free Text/Narrative Re-Assessment/Exam: 10/30/17 08:36 sed rate, CRP both moderately elevated. Discussed with Dr rUbano, Hospitalist. This seems to be a polyarthritis. Have considered polymyalgia rheumatica but she is extremely young for that. She has no Rhoades or temporal artery tenderness. I have give prednisone 60 PO, torodol, dilaudid IM and that has helped her, she is much more comfortable at time of discharge. I did stress early follow up, preferably Thursday of this next week. Discharge instr. as documented. Departure - Departure Time of Disposition: 14:37 Disposition: Home, Self-Care 01 Condition: Fair Clinical Impression: Shoulder arthritis - Discharge Information Prescriptions: oxyCODONE HCl/Acetaminophen [Percocet 5-325 mg Tablet] 1 each PO Q6HR PRN #20 tablet PRN Reason: Pain Instructions: Arthritis, [id number] Referrals: PCP,None [Primary Care Provider] - Forms: ED Department Discharge Additional Instructions: Rest, increase activity slowly as tolerated, continue prednisone 60 mg every morning for the next 2 days and then 40 mg every morning for the next 3 days, drink plenty of water to maintain hydration, Tylenol for mild to moderate discomfort or Percocet if needed for more severe pain. Follow-up with your regular medical provider or [facility] this following Thursday 4 days from now for recheck, further evaluation and treatment as needed. Return to ED as needed if symptoms worsening in any way. - My Orders Last 24 Hours: My Active Orders 10/29/17 10:12 EKG 12 Lead [EKG Documentation Completion] [RC] STAT - Assessment/Plan Last 24 Hours: My Active Orders 10/29/17 10:12 EKG 12 Lead [EKG Documentation Completion] [RC] STAT
[2017-10-29] MEDS ORDERED: HYDROmorphone 0.5 MG/0.5 ML SYRINGE IM ONE (12:58)
[2017-10-29] MEDS ORDERED: Acetaminophen 325 MG Tab PO ONE (12:59)
== END 2017-10-29 15:49 | disposition home or self-care (01) ==
LOC: JD.ED 09:20
DX: M19.012 Primary osteoarthritis, left shoulder (principal); M19.011 Primary osteoarthritis, right shoulder; Z79.899 Other long term (current) drug therapy; Z79.84 Long term (current) use of oral hypoglycemic drugs
CPT/HCPCS: 36415; 80053; 85025; 85652; 86140; 93005; 96372; 99284; A9270; J1170; J1885; 93010; 99283

== ENCOUNTER 2017-11-19 16:06 | Inpatient (IN) | payer OTHER ==
[2017-11-19] MEDS ORDERED: Metoclopramide 10 MG/2 ML SDV IVPUSH ONE (16:44)
[2017-11-19] MEDS ORDERED: HYDROmorphone 0.5 MG/0.5 ML SYRINGE IVPUSH ONE (16:44)
[2017-11-19] MEDS ORDERED: Ketorolac 30 MG/ML SDV IVPUSH SCH (16:45)
[2017-11-19] MEDS ORDERED: Sodium Chloride 0.9% 1,000 ML IV SCH ×2 (16:45→18:45)
--- NOTE | 2017-11-19 16:51 | EDM.PDOC ---
<Mark Faulkner - Last Filed: 11/19/17 20:07> ED HPI GENERAL MEDICAL PROBLEM - General Chief Complaint: General Stated Complaint: PAIN Time Seen by Provider: 11/19/17 16:35 - Related Data Allergies Allergy/AdvReac Type Severity Reaction Status Date / Time No Known Allergies Allergy Verified 11/19/17 21:13 Home Meds: Home Meds Omeprazole Magnesium [Prilosec Otc] 20 mg PO DAILY #14 tablet.dr 10/26/17 [Rx] Ondansetron [Zofran ODT] 4 mg PO Q6H PRN #20 tab.dis 10/26/17 [Rx] Potassium Chloride 20 meq PO DAILY #30 tablet.er 10/26/17 [Rx] metFORMIN [Glucophage XR] 500 mg PO DAILY #30 tab.er 10/26/17 [Rx] Course - Vital Signs Last Recorded V/S: Last Vital Signs Temp 36.5 C 11/21/17 04:18 Pulse 102 H 11/21/17 04:18 Resp 16 11/21/17 04:18 BP 118/56 L 11/21/17 04:18 Pulse Ox 96 11/21/17 04:18 - Orders/Labs/Meds Orders: Active Orders 24 hr Category Date Time Status BASIC METABOLIC PANEL,BMP [CHEM] AM Lab 11/21/17 06:43 Received BASIC METABOLIC PANEL,BMP [CHEM] AM Lab 11/22/17 05:11 Ordered BASIC METABOLIC PANEL,BMP [CHEM] AM Lab 11/23/17 05:11 Ordered BASIC METABOLIC PANEL,BMP [CHEM] AM Lab 11/24/17 05:11 Ordered CBC WITH AUTO DIFF [HEME] AM Lab 11/21/17 06:43 Received CBC WITH AUTO DIFF [HEME] AM Lab 11/22/17 05:11 Ordered CBC WITH AUTO DIFF [HEME] AM Lab 11/23/17 05:11 Ordered CBC WITH AUTO DIFF [HEME] AM Lab 11/24/17 05:11 Ordered CYCLICCITRUPEPAB,IGG [REF] Stat Lab 11/20/17 06:25 Received MAGNESIUM [CHEM] AM Lab 11/21/17 06:43 Received MAGNESIUM [CHEM] AM Lab 11/22/17 05:11 Ordered MAGNESIUM [CHEM] AM Lab 11/23/17 05:11 Ordered MAGNESIUM [CHEM] AM Lab 11/24/17 05:11 Ordered Potassium Chloride [Klor-Con M20] Med 11/20/17 09:00 Active 20 meq PO DAILY metFORMIN [Glucophage] Med 11/20/17 09:00 Active 500 mg PO DAILY Medication Orders Acetaminophen (Tylenol) 650 mg PO Q4H PRN PRN Reason: Pain (Mild 1-3)/fever Hydrocodone Bitart/Acetaminophen ([place] 325-5 Mg) 1 tab PO Q4H PRN PRN Reason: Pain (moderate 4-6) Last Admin: 11/21/17 05:26 Dose: 1 tab Admin: 11/20/17 21:47 Dose: 1 tab Admin: 11/20/17 16:55 Dose: 1 tab Admin: 11/20/17 09:19 Dose: 1 tab Admin: 11/20/17 04:59 Dose: 1 tab Admin: 11/19/17 22:29 Dose: 1 tab Albuterol/Ipratropium (Duoneb 3.0-0.5 Mg/3 Ml) 3 ml NEB Q4H PRN PRN Reason: Shortness Of Breath/wheezing Aspirin (Aspirin) 81 mg PO DAILY COUNT INCLUDES THE [facility] Last Admin: 11/20/17 08:23 Dose: 81 mg Bisacodyl (Dulcolax) 5 mg PO DAILY PRN PRN Reason: Constipation Dextrose/Water (Dextrose 50% In Water) 50 ml IVPUSH ASDIRECTED PRN PRN Reason: Hypoglycemia Docusate Sodium (Colace) 100 mg PO BID PRN PRN Reason: Constipation Last Admin: 11/20/17 08:42 Dose: 100 mg Glipizide (Glucotrol Xl) 5 mg PO BID COUNT INCLUDES THE [facility] Last Admin: 11/20/17 21:46 Dose: 5 mg Admin: 11/20/17 08:24 Dose: 5 mg Admin: 11/19/17 22:33 Dose: 5 mg Hydralazine HCl (Apresoline) 20 mg IVPUSH Q4H PRN PRN Reason: Hypertension Hydromorphone HCl (Dilaudid) 0.25 mg IVPUSH Q2H PRN PRN Reason: Pain (severe 7-10) Last Admin: 11/21/17 02:57 Dose: 0.25 mg Admin: 11/20/17 22:14 Dose: 0.25 mg Admin: 11/20/17 16:58 Dose: 0.25 mg Admin: 11/20/17 10:06 Dose: 0.25 mg Admin: 11/20/17 04:59 Dose: 0.25 mg Admin: 11/19/17 22:30 Dose: 0.25 mg Promethazine HCl 12.5 mg/ (Sodium Chloride) 50.5 mls @ 100 mls/hr IV Q6H PRN PRN Reason: Nausea/Vomiting Insulin Aspart (Novolog) 0 unit SUBCUT QIDACANDBED COUNT INCLUDES THE [facility]; Protocol Last Admin: 11/20/17 22:17 Dose: 1 unit Admin: 11/20/17 17:12 Dose: 1 unit Admin: 11/20/17 11:46 Dose: 2 unit Admin: 11/20/17 06:54 Dose: Admin: 11/19/17 22:28 Dose: 1 unit Lisinopril (Prinivil) 10 mg PO DAILY COUNT INCLUDES THE [facility] Last Admin: 11/20/17 08:25 Dose: 10 mg Lorazepam (Ativan) 2 mg IVPUSH Q4H PRN PRN Reason: Seizures Lorazepam (Ativan) 1 mg IV Q6H PRN PRN Reason: Anxiety Magnesium Sulfate (Pharmacy To Dose - Magnesium Replacement) 0 dose .XX ASDIRECTED PRN PRN Reason: RX TO WATCH MAG LEVELS Metformin HCl (Glucophage) 500 mg PO DAILY COUNT INCLUDES THE [facility] Last Admin: 11/20/17 08:25 Dose: 500 mg Metoprolol Tartrate (Lopressor) 5 mg IVPUSH Q4H PRN PRN Reason: Tachycardia Ondansetron HCl (Zofran Odt) 4 mg PO Q6H PRN PRN Reason: Nausea\vomiting Ondansetron HCl (Zofran) 4 mg IV Q6H PRN PRN Reason: Nausea/Vomiting Oral Electrolytes (Thermotabs) 2 each PO BID COUNT INCLUDES THE [facility] Last Admin: 11/20/17 21:46 Dose: 2 each Admin: 11/20/17 08:22 Dose: 2 each Pantoprazole Sodium (Protonix) 40 mg PO DAILY@0700 COUNT INCLUDES THE [facility] Last Admin: 11/21/17 06:43 Dose: 40 mg Admin: 11/20/17 08:30 Dose: 40 mg Polyethylene Glycol (Miralax) 17 gm PO DAILY PRN PRN Reason: Constipation Potassium Chloride (Klor-Con M20) 20 meq PO DAILY COUNT INCLUDES THE [facility] Last Admin: 11/20/17 08:27 Dose: 20 meq Potassium Chloride (Pharmacy To Dose - Potassium Replacement) 0 dose .XX ASDIRECTED PRN PRN Reason: RX TO WATCH Prednisone (Prednisone) 60 mg PO WITHBREAKFAST NICOLE Last Admin: 11/21/17 06:43 Dose: 60 mg Senna/Docusate Sodium (Senna Plus) 1 tab PO BID PRN PRN Reason: Constipation Temazepam (Restoril) 15 mg PO BEDTIME PRN PRN Reason: Sleep Labs: Laboratory Tests 11/19/17 11/19/17 11/19/17 Range/Units 17:25 17:25 17:25 WBC 12.15 H (3.98-10.04) K/mm3 RBC 4.13 (3.98-5.22) M/mm3 Hgb 11.8 (11.2-15.7) gm/L Hct 35.1 (34.1-44.9) % MCV 85.0 (79.4-94.8) fl MCH 28.6 (25.6-32.2) pg MCHC 33.6 (32.2-35.5) g/dl RDW Std Deviation 43.7 (36.4-46.3) fL Plt Count 133 L (182-369) K/mm3 MPV 11.7 (9.4-12.3) fl Neutrophils % (Manual) 86 H (40-60) % Band Neutrophils % 0 (0-10) % Lymphocytes % (Manual) 12 L (20-40) % Atypical Lymphs % 0 % Monocytes % (Manual) 1 L (2-10) % Eosinophils % (Manual) 1 (0.7-5.8) % Basophils % (Manual) 0 L (0.1-1.2) Platelet Estimate Adequate RBC Morph Comment Normal ESR 80 H (0-20) mm/hr Sodium 128 L (136-145) mEq/L Potassium 3.1 L (3.5-5.1) mEq/L Chloride 95 L (98-107) mEq/L Carbon Dioxide 25 (21-32) mEq/L Anion Gap 11.1 (5-15) BUN 13 (7-18) mg/dL Creatinine 0.9 (0.55-1.02) mg/dL Est Cr Clr Drug Dosing 86.84 mL/min Estimated GFR (MDRD) > 60 (>60) mL/min BUN/Creatinine Ratio 14.4 (14-18) Glucose 127 H (74-106) mg/dL Hemoglobin A1c (4.50-6.20) % Uric Acid (2.6-6.0) mg/dL Calcium 8.7 (8.5-10.1) mg/dL Magnesium 2.0 (1.8-2.4) mg/dl Total Bilirubin 0.9 (0.2-1.0) mg/dL AST 28 (15-37) U/L ALT 29 (14-59) U/L Alkaline Phosphatase 63 (46-116) U/L Creatine Kinase 14 L (26-192) U/L C-Reactive Protein 17.8 H* (<1.0) mg/dL NT-Pro-B Natriuret Pep (0-125) pg/mL Total Protein 7.8 (6.4-8.2) g/dl Albumin 2.3 L (3.4-5.0) g/dl Globulin 5.5 gm/dL Albumin/Globulin Ratio 0.4 L (1-2) TSH 3rd Generation (0.358-3.74) uIU/mL Urine Color (Yellow) Urine Appearance (Clear) Urine pH (5.0-8.0) Ur Specific [place] (1.005-1.030) Urine Protein (Negative) Urine Glucose (UA) (Negative) Urine Ketones (Negative) Urine Occult Blood (Negative) Urine Nitrite (Negative) Urine Bilirubin (Negative) Urine Urobilinogen (0.2-1.0) Ur Leukocyte Esterase (Negative) Urine RBC (0-5) /hpf Urine WBC (0-5) /hpf Ur Epithelial Cells (0-5) /hpf Urine Bacteria (FEW) /hpf Urine Mucus (FEW) /hpf Urine Opiates Screen (NEGATIVE) Ur Buprenorphine Scrn (NEGATIVE) Ur Oxycodone Screen (NEGATIVE) Urine Methadone Screen (NEGATIVE) Ur Propoxyphene Screen (NEGATIVE) Ur Barbiturates Screen (NEGATIVE) Ur Tricyclics Screen (NEGATIVE) Ur Phencyclidine Scrn (NEGATIVE) Ur Amphetamine Screen (NEGATIVE) U Methamphetamines Scrn (NEGATIVE) U Benzodiazepines Scrn (NEGATIVE) U Cocaine Metab Screen (NEGATIVE) U Marijuana (THC) Screen (NEGATIVE) Rheumatoid Factor Scrn (NEGATIVE) Monoscreen (NEGATIVE) 04/11/19/17 11/19/17 Range/Units 17:25 17:25 17:25 WBC (3.98-10.04) K/mm3 RBC (3.98-5.22) M/mm3 Hgb (11.2-15.7) gm/L Hct (34.1-44.9) % MCV (79.4-94.8) fl MCH (25.6-32.2) pg MCHC (32.2-35.5) g/dl RDW Std Deviation (36.4-46.3) fL Plt Count (182-369) K/mm3 MPV (9.4-12.3) fl Neutrophils % (Manual) (40-60) % Band Neutrophils % (0-10) % Lymphocytes % (Manual) (20-40) % Atypical Lymphs % % Monocytes % (Manual) (2-10) % Eosinophils % (Manual) (0.7-5.8) % Basophils % (Manual) (0.1-1.2) Platelet Estimate RBC Morph Comment ESR (0-20) mm/hr Sodium (136-145) mEq/L Potassium (3.5-5.1) mEq/L Chloride (98-107) mEq/L Carbon Dioxide (21-32) mEq/L Anion Gap (5-15) BUN (7-18) mg/dL Creatinine (0.55-1.02) mg/dL Est Cr Clr Drug Dosing mL/min Estimated GFR (MDRD) (>60) mL/min BUN/Creatinine Ratio (14-18) Glucose (74-106) mg/dL Hemoglobin A1c 7.40 H (4.50-6.20) % Uric Acid (2.6-6.0) mg/dL Calcium (8.5-10.1) mg/dL Magnesium (1.8-2.4) mg/dl Total Bilirubin (0.2-1.0) mg/dL AST (15-37) U/L ALT (14-59) U/L Alkaline Phosphatase (46-116) U/L Creatine Kinase (26-192) U/L C-Reactive Protein (<1.0) mg/dL NT-Pro-B Natriuret Pep (0-125) pg/mL Total Protein (6.4-8.2) g/dl Albumin (3.4-5.0) g/dl Globulin gm/dL Albumin/Globulin Ratio (1-2) TSH 3rd Generation 2.068 (0.358-3.74) uIU/mL Urine Color (Yellow) Urine Appearance (Clear) Urine pH (5.0-8.0) Ur Specific [place] (1.005-1.030) Urine Protein (Negative) Urine Glucose (UA) (Negative) Urine Ketones (Negative) Urine Occult Blood (Negative) Urine Nitrite (Negative) Urine Bilirubin (Negative) Urine Urobilinogen (0.2-1.0) Ur Leukocyte Esterase (Negative) Urine RBC (0-5) /hpf Urine WBC (0-5) /hpf Ur Epithelial Cells (0-5) /hpf Urine Bacteria (FEW) /hpf Urine Mucus (FEW) /hpf Urine Opiates Screen (NEGATIVE) Ur Buprenorphine Scrn (NEGATIVE) Ur Oxycodone Screen (NEGATIVE) Urine Methadone Screen (NEGATIVE) Ur Propoxyphene Screen (NEGATIVE) Ur Barbiturates Screen (NEGATIVE) Ur Tricyclics Screen (NEGATIVE) Ur Phencyclidine Scrn (NEGATIVE) Ur Amphetamine Screen (NEGATIVE) U Methamphetamines Scrn (NEGATIVE) U Benzodiazepines Scrn (NEGATIVE) U Cocaine Metab Screen (NEGATIVE) U Marijuana (THC) Screen (NEGATIVE) Rheumatoid Factor Scrn Negative (NEGATIVE) Monoscreen (NEGATIVE) 11/19/17 11/19/17 11/19/17 Range/Units 17:25 17:25 17:25 WBC (3.98-10.04) K/mm3 RBC (3.98-5.22) M/mm3 Hgb (11.2-15.7) gm/L Hct (34.1-44.9) % MCV (79.4-94.8) fl MCH (25.6-32.2) pg MCHC (32.2-35.5) g/dl RDW Std Deviation (36.4-46.3) fL Plt Count (182-369) K/mm3 MPV (9.4-12.3) fl Neutrophils % (Manual) (40-60) % Band Neutrophils % (0-10) % Lymphocytes % (Manual) (20-40) % Atypical Lymphs % % Monocytes % (Manual) (2-10) % Eosinophils % (Manual) (0.7-5.8) % Basophils % (Manual) (0.1-1.2) Platelet Estimate RBC Morph Comment ESR (0-20) mm/hr Sodium (136-145) mEq/L Potassium (3.5-5.1) mEq/L Chloride (98-107) mEq/L Carbon Dioxide (21-32) mEq/L Anion Gap (5-15) BUN (7-18) mg/dL Creatinine (0.55-1.02) mg/dL Est Cr Clr Drug Dosing mL/min Estimated GFR (MDRD) (>60) mL/min BUN/Creatinine Ratio (14-18) Glucose (74-106) mg/dL Hemoglobin A1c (4.50-6.20) % Uric Acid 4.9 (2.6-6.0) mg/dL Calcium (8.5-10.1) mg/dL Magnesium (1.8-2.4) mg/dl Total Bilirubin (0.2-1.0) mg/dL AST (15-37) U/L ALT (14-59) U/L Alkaline Phosphatase (46-116) U/L Creatine Kinase (26-192) U/L C-Reactive Protein (<1.0) mg/dL NT-Pro-B Natriuret Pep 113 (0-125) pg/mL Total Protein (6.4-8.2) g/dl Albumin (3.4-5.0) g/dl Globulin gm/dL Albumin/Globulin Ratio (1-2) TSH 3rd Generation (0.358-3.74) uIU/mL Urine Color (Yellow) Urine Appearance (Clear) Urine pH (5.0-8.0) Ur Specific [place] (1.005-1.030) Urine Protein (Negative) Urine Glucose (UA) (Negative) Urine Ketones (Negative) Urine Occult Blood (Negative) Urine Nitrite (Negative) Urine Bilirubin (Negative) Urine Urobilinogen (0.2-1.0) Ur Leukocyte Esterase (Negative) Urine RBC (0-5) /hpf Urine WBC (0-5) /hpf Ur Epithelial Cells (0-5) /hpf Urine Bacteria (FEW) /hpf Urine Mucus (FEW) /hpf Urine Opiates Screen (NEGATIVE) Ur Buprenorphine Scrn (NEGATIVE) Ur Oxycodone Screen (NEGATIVE) Urine Methadone Screen (NEGATIVE) Ur Propoxyphene Screen (NEGATIVE) Ur Barbiturates Screen (NEGATIVE) Ur Tricyclics Screen (NEGATIVE) Ur Phencyclidine Scrn (NEGATIVE) Ur Amphetamine Screen (NEGATIVE) U Methamphetamines Scrn (NEGATIVE) U Benzodiazepines Scrn (NEGATIVE) U Cocaine Metab Screen (NEGATIVE) U Marijuana (THC) Screen (NEGATIVE) Rheumatoid Factor Scrn (NEGATIVE) Monoscreen Negative (NEGATIVE) 11/19/17 11/19/17 Range/Units 18:39 18:39 WBC (3.98-10.04) K/mm3 RBC (3.98-5.22) M/mm3 Hgb (11.2-15.7) gm/L Hct (34.1-44.9) % MCV (79.4-94.8) fl MCH (25.6-32.2) pg MCHC (32.2-35.5) g/dl RDW Std Deviation (36.4-46.3) fL Plt Count (182-369) K/mm3 MPV (9.4-12.3) fl Neutrophils % (Manual) (40-60) % Band Neutrophils % (0-10) % Lymphocytes % (Manual) (20-40) % Atypical Lymphs % % Monocytes % (Manual) (2-10) % Eosinophils % (Manual) (0.7-5.8) % Basophils % (Manual) (0.1-1.2) Platelet Estimate RBC Morph Comment ESR (0-20) mm/hr Sodium (136-145) mEq/L Potassium (3.5-5.1) mEq/L Chloride (98-107) mEq/L Carbon Dioxide (21-32) mEq/L Anion Gap (5-15) BUN (7-18) mg/dL Creatinine (0.55-1.02) mg/dL Est Cr Clr Drug Dosing mL/min Estimated GFR (MDRD) (>60) mL/min BUN/Creatinine Ratio (14-18) Glucose (74-106) mg/dL Hemoglobin A1c (4.50-6.20) % Uric Acid (2.6-6.0) mg/dL Calcium (8.5-10.1) mg/dL Magnesium (1.8-2.4) mg/dl Total Bilirubin (0.2-1.0) mg/dL AST (15-37) U/L ALT (14-59) U/L Alkaline Phosphatase (46-116) U/L Creatine Kinase (26-192) U/L C-Reactive Protein (<1.0) mg/dL NT-Pro-B Natriuret Pep (0-125) pg/mL Total Protein (6.4-8.2) g/dl Albumin (3.4-5.0) g/dl Globulin gm/dL Albumin/Globulin Ratio (1-2) TSH 3rd Generation (0.358-3.74) uIU/mL Urine Color Yellow (Yellow) Urine Appearance Slt cloudy H (Clear) Urine pH 6.0 (5.0-8.0) Ur Specific [place] 1.010 (1.005-1.030) Urine Protein 1+ H (Negative) Urine Glucose (UA) Negative (Negative) Urine Ketones Trace H (Negative) Urine Occult Blood 3+ H (Negative) Urine Nitrite Negative (Negative) Urine Bilirubin 1+ H (Negative) Urine Urobilinogen 4.0 H (0.2-1.0) Ur Leukocyte Esterase 1+ H (Negative) Urine RBC 5-10 H (0-5) /hpf Urine WBC 10-20 H (0-5) /hpf Ur Epithelial Cells 10-20 H (0-5) /hpf Urine Bacteria Few (FEW) /hpf Urine Mucus Not seen (FEW) /hpf Urine Opiates Screen Negative (NEGATIVE) Ur Buprenorphine Scrn Negative (NEGATIVE) Ur Oxycodone Screen Presumptive positive H (NEGATIVE) Urine Methadone Screen Negative (NEGATIVE) Ur Propoxyphene Screen Negative (NEGATIVE) Ur Barbiturates Screen Negative (NEGATIVE) Ur Tricyclics Screen Negative (NEGATIVE) Ur Phencyclidine Scrn Negative (NEGATIVE) Ur Amphetamine Screen Negative (NEGATIVE) U Methamphetamines Scrn Negative (NEGATIVE) U Benzodiazepines Scrn Negative (NEGATIVE) U Cocaine Metab Screen Negative (NEGATIVE) U Marijuana (THC) Screen Presumptive positive H (NEGATIVE) Rheumatoid Factor Scrn (NEGATIVE) Monoscreen (NEGATIVE) Meds: Medications Generic Name Dose Route Start Last Admin Trade Name Freq PRN Reason Stop Dose Admin Acetaminophen 650 mg 11/19/17 20:08 Tylenol PO Q4H PRN Pain (Mild 1-3)/fever Hydrocodone Bitart/Acetaminophen 1 tab 11/19/17 20:08 11/21/17 05:26 [place] 325-5 Mg PO 1 tab Q4H PRN Administration Pain (moderate 4-6) Albuterol/Ipratropium 3 ml 11/19/17 20:08 Duoneb 3.0-0.5 Mg/3 Ml NEB Q4H PRN Shortness Of Breath/wheezing Aspirin 81 mg 11/20/17 09:00 11/20/17 08:23 Aspirin PO 81 mg DAILY NICOLE Administration Bisacodyl 5 mg 11/19/17 20:08 Dulcolax PO DAILY PRN Constipation Dextrose/Water 50 ml 11/19/17 20:40 Dextrose 50% In Water IVPUSH ASDIRECTED PRN Hypoglycemia Docusate Sodium 100 mg 11/19/17 20:08 11/20/17 08:42 Colace PO 100 mg BID PRN Administration Constipation Glipizide 5 mg 11/19/17 21:00 11/20/17 21:46 Glucotrol Xl PO 5 mg BID NICOLE Administration Hydralazine HCl 20 mg 11/19/17 20:07 Apresoline IVPUSH Q4H PRN Hypertension Hydromorphone HCl 0.25 mg 11/19/17 20:08 11/21/17 02:57 Dilaudid IVPUSH 0.25 mg Q2H PRN Administration Pain (severe 7-10) Promethazine HCl 12.5 mg/ 50.5 mls @ 100 mls/hr 11/19/17 20:08 Sodium Chloride IV Q6H PRN Nausea/Vomiting Insulin Aspart 0 unit 11/19/17 22:00 11/20/17 22:17 Novolog SUBCUT 1 unit QIDACANDBED NICOLE Administration Protocol Lisinopril 10 mg 11/20/17 09:00 11/20/17 08:25 Prinivil PO 10 mg DAILY NICOLE Administration Lorazepam 2 mg 11/19/17 20:07 Ativan IVPUSH Q4H PRN Seizures Lorazepam 1 mg 11/19/17 20:08 Ativan IV Q6H PRN Anxiety Magnesium Sulfate 0 dose 11/19/17 20:15 Pharmacy To Dose - Magnesium Replacement .XX ASDIRECTED PRN RX TO WATCH MAG LEVELS Metformin HCl 500 mg 11/20/17 09:00 11/20/17 08:25 Glucophage PO 500 mg DAILY NICOLE Administration Metoprolol Tartrate 5 mg 11/19/17 20:07 Lopressor IVPUSH Q4H PRN Tachycardia Ondansetron HCl 4 mg 11/19/17 20:05 Zofran Odt PO Q6H PRN Nausea\vomiting Ondansetron HCl 4 mg 11/19/17 20:08 Zofran IV Q6H PRN Nausea/Vomiting Oral Electrolytes 2 each 11/20/17 09:00 11/20/17 21:46 Thermotabs PO 2 each BID NICOLE Administration Pantoprazole Sodium 40 mg 11/20/17 07:45 11/21/17 06:43 Protonix PO 40 mg DAILY@0700 NICOLE Administration Polyethylene Glycol 17 gm 11/19/17 20:08 Miralax PO DAILY PRN Constipation Potassium Chloride 20 meq 11/20/17 09:00 11/20/17 08:27 Klor-Con M20 PO 20 meq DAILY NICOLE Administration Potassium Chloride 0 dose 11/19/17 20:15 Pharmacy To Dose - Potassium Replacement .XX ASDIRECTED PRN RX TO WATCH Prednisone 60 mg 11/21/17 07:00 11/21/17 06:43 Prednisone PO 60 mg WITHBREAKFAST NICOLE Administration Senna/Docusate Sodium 1 tab 11/19/17 20:08 Senna Plus PO BID PRN Constipation Temazepam 15 mg 11/19/17 20:08 Restoril PO BEDTIME PRN Sleep Discontinued Medications Generic Name Dose Route Start Last Admin Trade Name Freq PRN Reason Stop Dose Admin Hydromorphone HCl 1 mg 11/19/17 16:44 11/19/17 17:25 Dilaudid IVPUSH 11/19/17 16:45 Not Given ONETIME ONE Hydromorphone HCl 1 mg 11/19/17 17:06 11/19/17 17:26 Dilaudid IM 11/19/17 17:07 Not Given ONETIME ONE Hydromorphone HCl 1 mg 11/19/17 17:10 11/19/17 17:21 Dilaudid IM 11/19/17 17:11 1 mg ONETIME ONE Administration Sodium Chloride 1,000 mls @ 500 mls/hr 11/19/17 16:45 Normal Saline IV ASDIRECTED NICOLE Sodium Chloride 1,000 mls @ 999 mls/hr 11/19/17 18:45 11/19/17 18:41 Normal Saline IV 999 mls/hr ASDIRECTED NICOLE Administration Potassium Chloride 10 meq/ 100 mls @ 100 mls/hr 11/19/17 18:32 11/19/17 18:41 Premix IV 11/19/17 19:31 100 mls/hr ASDIRECTED STA Administration Potassium Chloride 10 meq/ 100 mls @ 100 mls/hr 11/19/17 18:33 11/19/17 21:49 Premix IV 11/19/17 19:32 Not Given ONETIME ONE Potassium Chloride 10 meq/ 100 mls @ 100 mls/hr 11/19/17 20:30 11/19/17 21:50 Premix IV 11/20/17 01:29 Not Given Q1H NICOLE Ketorolac Tromethamine 30 mg 11/19/17 16:45 Toradol IVPUSH ONETIME NICOLE Ketorolac Tromethamine 30 mg 11/19/17 17:07 11/19/17 17:20 Toradol IM 11/19/17 17:08 30 mg ONETIME ONE Administration Metoclopramide HCl 10 mg 11/19/17 16:44 11/19/17 17:26 Reglan IVPUSH 11/19/17 16:45 Not Given ONETIME ONE Metoclopramide HCl 10 mg 11/19/17 17:07 11/19/17 17:19 Reglan IM 11/19/17 17:08 10 mg ONETIME ONE Administration Omeprazole 20 mg 11/20/17 09:00 Omeprazole PO DAILY NICOLE Pneumococcal Polyvalent Vaccine 0.5 ml 11/19/17 21:17 Pneumovax 23 IM 11/19/17 21:18 .ONCE ONE Potassium Chloride 60 meq 11/19/17 21:39 11/19/17 22:27 Klor-Con M20 PO 11/19/17 21:40 60 meq ONETIME ONE Administration Prednisone 60 mg 11/20/17 08:24 11/20/17 08:39 Prednisone PO 11/20/17 08:25 60 mg ONETIME ONE Administration - Re-Assessments/Exams Free Text/Narrative Re-Assessment/Exam: 11/19/17 19:[address] Gonzalez. The urinalysis is consistent with contamination. I will order a urine culture, however, I do not see an indication to start antibiotics based on this urinalysis result. The influenza swab has returned negative. 11/19/17 20:05 Test results discussed with the patient. The patient is agreeable to being placed into observation, and is aware that she would be responsible for payment for her own medications. Case discussed with Dr. Urbano at 20:00. He accepts the patient into observation. Departure - Departure Time of Disposition: 20:05 Disposition: Refer to Observation Condition: Fair Clinical Impression: Hyponatremia, Hypokalemia, Joint ache - Discharge Information <Sj Gonzalez - Last Filed: 11/21/17 07:19> ED HPI GENERAL MEDICAL PROBLEM - General Source of Information: Reports: Patient History Limitations: Reports: No Limitations - History of Present Illness INITIAL COMMENTS - FREE TEXT/NARRATIVE: 42-year-old female of [place] presents to the ED complaining of diffuse pain particularly in her knee joints and her shoulders. She has back pain she claims that she has a cough. She has intermittent cervical neck pain she has a headache. She is nauseated she is not able to eat. She's not had any diarrhea. She reports that she had pneumonia in September and is just getting better. Coughing and bringing up occasional phlegm without any blood. She denies any genitourinary complaints although she has diffuse flank pain bilaterally and low back pain she states she hurts everywhere. She has no formal history of fibromyalgia syndrome. 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 She is a type II diabetic. She does not check her blood sugars. He is currently on metformin 500 mg twice a day. He is been told that she has a peptic ulcer in the past . Has not been taking any pain medications i.e. Tylenol or Motrin. Onset: Sudden Onset Date: 11/17/17 (She developed generalized severe pain 48 hours ago. Shows has some pain in her joints but never to this severity that she could barely walk or move. She claims her pain is 10 out of 10.) Duration: Day(s): (Severe pain started 2 days ago.), Chronic (Does have a chronic pain issue particularly with her knees due to arthritic changes.) Location: Reports: Head (Headache), Neck, Back (Diffuse low back pain), Lower Extremity, Left, Lower Extremity, Right (Left knee worse than the right knee right knee and hip.) Quality: Reports: Ache, Throbbing Severity: Severe Improves with: Reports: None (10 out of 10 pain), Rest (Not moving helps a bit.) Worsens with: Reports: Movement Context: Denies: Activity, Exercise, Lifting, Sick Contact, Trauma, Other Associated Symptoms: Reports: Chest Pain, Cough, cough w sputum, Fever/Chills, Headaches, Loss of Appetite, Malaise, Nausea/Vomiting, Shortness of Breath, Weakness (Nausea with no vomiting generalized severe weakness). Denies: No Other Symptoms (Sometimes with deep breathing.), Confusion, Diaphoresis, Rash, Seizure, Syncope Treatments CHILD SUPPORT AGENT: Reports: Other (see below) (None.) Generalized Pain Score (Numeric/FACES): 10 Left Knee Pain Score (Numeric/FACES): 7 Past Medical History - Past Health History Medical/Surgical History: Denies Medical/Surgical History Endocrine/Metabolic History: Reports: Diabetes, Type II (Controlled with metformin 500 mg twice a day.), Obesity/BMI 30+ - Past Surgical History Musculoskeletal Surgical History: Reports: ORIF Social & Family History - Tobacco Use Smoking Status *Q: Never Smoker Years of Tobacco use: 20 Packs/Tins Daily: 0.1 - Caffeine Use Caffeine Use: Reports: None - Recreational Drug Use Recreational Drug Use: No - Living Situation & Occupation Living situation: Reports: Single, with Family Occupation: Employed ED ROS GENERAL - Review of Systems Review Of Systems: See Below Constitutional: Reports: Fever, Malaise, Weakness, Fatigue, Decreased Appetite. Denies: Chills HEENT: Denies: Ear Pain, Glasses, Hearing Loss Respiratory: Reports: Shortness of Breath, Cough, Sputum. Denies: Wheezing, Pleuritic Chest Pain, Hemoptysis Cardiovascular: Reports: Chest Pain, Dyspnea on Exertion, Lightheadedness ( Lightheaded dizzy when she standing today.). Denies: Blood Pressure Problem, Claudication, Edema, Orthopnea Endocrine: Reports: Fatigue (Likely), High Glucose (Not sure she's not been checking her sugars. She has type 2 diabetes.) GI/Abdominal: Reports: Abdominal Pain, Decreased Appetite, Nausea. Denies: Constipation (Diffuse abdominal discomfort not able to localize pain to any one area.), Diarrhea, Distension, Flatus, Hematemesis, Hematochezia, Melena, Stool Incontinence, Vomiting, Other : Reports: Frequency. Denies: Hematuria, Incontinence, Irregular Menses, Pain , Urgency, Urinary Retention Musculoskeletal: Reports: Back Pain, Leg Pain, Joint Pain (Both knees left hip specially knees hips low back and shoulders.), Joint Swelling (Right knee left knee.), Muscle Pain. Denies: Hand Pain (Diffuse low back pain) Skin: Reports: Dryness (Lips are dry and chapped.). Denies: Rash, Erythema, Wound, Burn(s), Change in Color Neurological: Reports: Dizziness, Headache (With standing.), Difficulty Walking. Denies: Trouble Speaking, Weakness (Due to pain in her lower extremities), Change in Speech Hematologic/Lymphatic: Reports: No Symptoms Immunologic: Reports: No Symptoms ED EXAM, GENERAL - Physical Exam Exam: See Below Exam Limited By: No Limitations General Appearance: Alert, Moderate Distress (Appears to be in moderate degree of pain. She's afebrile on examination. Resting heart rate however is 10 5/m sats only 94 on room air.) Eye Exam: Bilateral Eye: Normal Inspection (No jaundice.) Ears: Normal TMs Throat/Mouth: Normal Oropharynx, Other (Lips are dry and chapped. Tongue is mildly dry and coated.). No: Normal Inspection, Normal Lips Head: Atraumatic, Normocephalic Neck: Limited Range of Motion (His full range of motion but pain at full lateral rotation bilaterally.), Tender Lateral (Tender bilateral aspect of the cervical spine. This appears to be muscular pain.). No: Lymphadenopathy (L), Lymphadenopathy (R) Respiratory/Chest: No Respiratory Distress, Lungs Clear, Decreased Breath Sounds (Besides are diminished to the posterior lung albrecht due to her body size.). No: Rales, Rhonchi, Wheezing Cardiovascular: No Edema, No Gallop, No Murmur, No Rub, Tachycardia (Resting tachycardia of 10 8/m.). No: Normal Peripheral Pulses Peripheral Pulses: 3+: Posterior Tibial (L), Posterior Tibial (R), Dorsalis Pedis (L), Dorsalis Pedis (R) GI/Abdominal: Normal Bowel Sounds, Soft, Non-Tender, No Organomegaly, No Abnormal Bruit, No Mass, Pelvis Stable, Other (Patient is markedly morbidly obese. This limits ability to palpate any solid organs. No obvious). No: Guarding ( guarding or rebound tenderness noted), Rigid, Rebound, Tender Back Exam: CVA Tenderness (L), CVA Tenderness (R) (Mild mild.), Decreased Range of Motion (Pain throughout her lumbar spine to palpation). No: Full Range of Motion Extremities: Other (Patient does have limited range of motion of both knees and they are both very warm to palpation indicating underlying synovitis particularly on the right side. There is evidence of degenerative [place] 30 changes in both knees clinically. Range of motion of her hips is painful particularly in the SI joint distribution. She has difficulty abducting either shoulder due to pain in her shoulders.) Neurological: Alert, Oriented, CN II-XII Intact, Normal Cognition. No: Normal Gait Psychiatric: Flat Affect Skin Exam: Warm, Dry, Intact, Normal Color, No Rash Course - Orders/Labs/Meds Orders: Active Orders 24 hr Category Date Time Status BASIC METABOLIC PANEL,BMP [CHEM] AM Lab 11/21/17 06:43 Received BASIC METABOLIC PANEL,BMP [CHEM] AM Lab 11/22/17 05:11 Ordered BASIC METABOLIC PANEL,BMP [CHEM] AM Lab 11/23/17 05:11 Ordered BASIC METABOLIC PANEL,BMP [CHEM] AM Lab 11/24/17 05:11 Ordered CBC WITH AUTO DIFF [HEME] AM Lab 11/21/17 06:43 Received CBC WITH AUTO DIFF [HEME] AM Lab 11/22/17 05:11 Ordered CBC WITH AUTO DIFF [HEME] AM Lab 11/23/17 05:11 Ordered CBC WITH AUTO DIFF [HEME] AM Lab 11/24/17 05:11 Ordered CYCLICCITRUPEPAB,IGG [REF] Stat Lab 11/20/17 06:25 Received MAGNESIUM [CHEM] AM Lab 11/21/17 06:43 Received MAGNESIUM [CHEM] AM Lab 11/22/17 05:11 Ordered MAGNESIUM [CHEM] AM Lab 11/23/17 05:11 Ordered MAGNESIUM [CHEM] AM Lab 11/24/17 05:11 Ordered Potassium Chloride [Klor-Con M20] Med 11/20/17 09:00 Active 20 meq PO DAILY metFORMIN [Glucophage] Med 11/20/17 09:00 Active 500 mg PO DAILY Medication Orders Acetaminophen (Tylenol) 650 mg PO Q4H PRN PRN Reason: Pain (Mild 1-3)/fever Hydrocodone Bitart/Acetaminophen ([place] 325-5 Mg) 1 tab PO Q4H PRN PRN Reason: Pain (moderate 4-6) Last Admin: 11/21/17 05:26 Dose: 1 tab Admin: 11/20/17 21:47 Dose: 1 tab Admin: 11/20/17 16:55 Dose: 1 tab Admin: 11/20/17 09:19 Dose: 1 tab Admin: 11/20/17 04:59 Dose: 1 tab Admin: 11/19/17 22:29 Dose: 1 tab Albuterol/Ipratropium (Duoneb 3.0-0.5 Mg/3 Ml) 3 ml NEB Q4H PRN PRN Reason: Shortness Of Breath/wheezing Aspirin (Aspirin) 81 mg PO DAILY COUNT INCLUDES THE [facility] Last Admin: 11/20/17 08:23 Dose: 81 mg Bisacodyl (Dulcolax) 5 mg PO DAILY PRN PRN Reason: Constipation Dextrose/Water (Dextrose 50% In Water) 50 ml IVPUSH ASDIRECTED PRN PRN Reason: Hypoglycemia Docusate Sodium (Colace) 100 mg PO BID PRN PRN Reason: Constipation Last Admin: 11/20/17 08:42 Dose: 100 mg Glipizide (Glucotrol Xl) 5 mg PO BID COUNT INCLUDES THE [facility] Last Admin: 11/20/17 21:46 Dose: 5 mg Admin: 11/20/17 08:24 Dose: 5 mg Admin: 11/19/17 22:33 Dose: 5 mg Hydralazine HCl (Apresoline) 20 mg IVPUSH Q4H PRN PRN Reason: Hypertension Hydromorphone HCl (Dilaudid) 0.25 mg IVPUSH Q2H PRN PRN Reason: Pain (severe 7-10) Last Admin: 11/21/17 02:57 Dose: 0.25 mg Admin: 11/20/17 22:14 Dose: 0.25 mg Admin: 11/20/17 16:58 Dose: 0.25 mg Admin: 11/20/17 10:06 Dose: 0.25 mg Admin: 11/20/17 04:59 Dose: 0.25 mg Admin: 11/19/17 22:30 Dose: 0.25 mg Promethazine HCl 12.5 mg/ (Sodium Chloride) 50.5 mls @ 100 mls/hr IV Q6H PRN PRN Reason: Nausea/Vomiting Insulin Aspart (Novolog) 0 unit SUBCUT QIDACANDBED COUNT INCLUDES THE [facility]; Protocol Last Admin: 11/20/17 22:17 Dose: 1 unit Admin: 11/20/17 17:12 Dose: 1 unit Admin: 11/20/17 11:46 Dose: 2 unit Admin: 11/20/17 06:54 Dose: Admin: 11/19/17 22:28 Dose: 1 unit Lisinopril (Prinivil) 10 mg PO DAILY COUNT INCLUDES THE [facility] Last Admin: 11/20/17 08:25 Dose: 10 mg Lorazepam (Ativan) 2 mg IVPUSH Q4H PRN PRN Reason: Seizures Lorazepam (Ativan) 1 mg IV Q6H PRN PRN Reason: Anxiety Magnesium Sulfate (Pharmacy To Dose - Magnesium Replacement) 0 dose .XX ASDIRECTED PRN PRN Reason: RX TO WATCH MAG LEVELS Metformin HCl (Glucophage) 500 mg PO DAILY COUNT INCLUDES THE [facility] Last Admin: 11/20/17 08:25 Dose: 500 mg Metoprolol Tartrate (Lopressor) 5 mg IVPUSH Q4H PRN PRN Reason: Tachycardia Ondansetron HCl (Zofran Odt) 4 mg PO Q6H PRN PRN Reason: Nausea\vomiting Ondansetron HCl (Zofran) 4 mg IV Q6H PRN PRN Reason: Nausea/Vomiting Oral Electrolytes (Thermotabs) 2 each PO BID COUNT INCLUDES THE [facility] Last Admin: 11/20/17 21:46 Dose: 2 each Admin: 11/20/17 08:22 Dose: 2 each Pantoprazole Sodium (Protonix) 40 mg PO DAILY@0700 COUNT INCLUDES THE [facility] Last Admin: 11/21/17 06:43 Dose: 40 mg Admin: 11/20/17 08:30 Dose: 40 mg Polyethylene Glycol (Miralax) 17 gm PO DAILY PRN PRN Reason: Constipation Potassium Chloride (Klor-Con M20) 20 meq PO DAILY COUNT INCLUDES THE [facility] Last Admin: 11/20/17 08:27 Dose: 20 meq Potassium Chloride (Pharmacy To Dose - Potassium Replacement) 0 dose .XX ASDIRECTED PRN PRN Reason: RX TO WATCH Prednisone (Prednisone) 60 mg PO WITHBREAKFAST COUNT INCLUDES THE [facility] Last Admin: 11/21/17 06:43 Dose: 60 mg Senna/Docusate Sodium (Senna Plus) 1 tab PO BID PRN PRN Reason: Constipation Temazepam (Restoril) 15 mg PO BEDTIME PRN PRN Reason: Sleep Labs: Laboratory Tests 11/19/17 11/19/17 11/19/17 Range/Units 17:25 17:25 17:25 WBC 12.15 H (3.98-10.04) K/mm3 RBC 4.13 (3.98-5.22) M/mm3 Hgb 11.8 (11.2-15.7) gm/L Hct 35.1 (34.1-44.9) % MCV 85.0 (79.4-94.8) fl MCH 28.6 (25.6-32.2) pg MCHC 33.6 (32.2-35.5) g/dl RDW Std Deviation 43.7 (36.4-46.3) fL Plt Count 133 L (182-369) K/mm3 MPV 11.7 (9.4-12.3) fl Neutrophils % (Manual) 86 H (40-60) % Band Neutrophils % 0 (0-10) % Lymphocytes % (Manual) 12 L (20-40) % Atypical Lymphs % 0 % Monocytes % (Manual) 1 L (2-10) % Eosinophils % (Manual) 1 (0.7-5.8) % Basophils % (Manual) 0 L (0.1-1.2) Platelet Estimate Adequate RBC Morph Comment Normal ESR 80 H (0-20) mm/hr Sodium 128 L (136-145) mEq/L Potassium 3.1 L (3.5-5.1) mEq/L Chloride 95 L (98-107) mEq/L Carbon Dioxide 25 (21-32) mEq/L Anion Gap 11.1 (5-15) BUN 13 (7-18) mg/dL Creatinine 0.9 (0.55-1.02) mg/dL Est Cr Clr Drug Dosing 86.84 mL/min Estimated GFR (MDRD) > 60 (>60) mL/min BUN/Creatinine Ratio 14.4 (14-18) Glucose 127 H (74-106) mg/dL Hemoglobin A1c (4.50-6.20) % Uric Acid (2.6-6.0) mg/dL Calcium 8.7 (8.5-10.1) mg/dL Magnesium 2.0 (1.8-2.4) mg/dl Total Bilirubin 0.9 (0.2-1.0) mg/dL AST 28 (15-37) U/L ALT 29 (14-59) U/L Alkaline Phosphatase 63 (46-116) U/L Creatine Kinase 14 L (26-192) U/L C-Reactive Protein 17.8 H* (<1.0) mg/dL NT-Pro-B Natriuret Pep (0-125) pg/mL Total Protein 7.8 (6.4-8.2) g/dl Albumin 2.3 L (3.4-5.0) g/dl Globulin 5.5 gm/dL Albumin/Globulin Ratio 0.4 L (1-2) TSH 3rd Generation (0.358-3.74) uIU/mL Urine Color (Yellow) Urine Appearance (Clear) Urine pH (5.0-8.0) Ur Specific [place] (1.005-1.030) Urine Protein (Negative) Urine Glucose (UA) (Negative) Urine Ketones (Negative) Urine Occult Blood (Negative) Urine Nitrite (Negative) Urine Bilirubin (Negative) Urine Urobilinogen (0.2-1.0) Ur Leukocyte Esterase (Negative) Urine RBC (0-5) /hpf Urine WBC (0-5) /hpf Ur Epithelial Cells (0-5) /hpf Urine Bacteria (FEW) /hpf Urine Mucus (FEW) /hpf Urine Opiates Screen (NEGATIVE) Ur Buprenorphine Scrn (NEGATIVE) Ur Oxycodone Screen (NEGATIVE) Urine Methadone Screen (NEGATIVE) Ur Propoxyphene Screen (NEGATIVE) Ur Barbiturates Screen (NEGATIVE) Ur Tricyclics Screen (NEGATIVE) Ur Phencyclidine Scrn (NEGATIVE) Ur Amphetamine Screen (NEGATIVE) U Methamphetamines Scrn (NEGATIVE) U Benzodiazepines Scrn (NEGATIVE) U Cocaine Metab Screen (NEGATIVE) U Marijuana (THC) Screen (NEGATIVE) Rheumatoid Factor Scrn (NEGATIVE) Monoscreen (NEGATIVE) 11/19/17 11/19/17 11/19/17 Range/Units 17:25 17:25 17:25 WBC (3.98-10.04) K/mm3 RBC (3.98-5.22) M/mm3 Hgb (11.2-15.7) gm/L Hct (34.1-44.9) % MCV (79.4-94.8) fl MCH (25.6-32.2) pg MCHC (32.2-35.5) g/dl RDW Std Deviation (36.4-46.3) fL Plt Count (182-369) K/mm3 MPV (9.4-12.3) fl Neutrophils % (Manual) (40-60) % Band Neutrophils % (0-10) % Lymphocytes % (Manual) (20-40) % Atypical Lymphs % % Monocytes % (Manual) (2-10) % Eosinophils % (Manual) (0.7-5.8) % Basophils % (Manual) (0.1-1.2) Platelet Estimate RBC Morph Comment ESR (0-20) mm/hr Sodium (136-145) mEq/L Potassium (3.5-5.1) mEq/L Chloride (98-107) mEq/L Carbon Dioxide (21-32) mEq/L Anion Gap (5-15) BUN (7-18) mg/dL Creatinine (0.55-1.02) mg/dL Est Cr Clr Drug Dosing mL/min Estimated GFR (MDRD) (>60) mL/min BUN/Creatinine Ratio (14-18) Glucose (74-106) mg/dL Hemoglobin A1c 7.40 H (4.50-6.20) % Uric Acid (2.6-6.0) mg/dL Calcium (8.5-10.1) mg/dL Magnesium (1.8-2.4) mg/dl Total Bilirubin (0.2-1.0) mg/dL AST (15-37) U/L ALT (14-59) U/L Alkaline Phosphatase (46-116) U/L Creatine Kinase (26-192) U/L C-Reactive Protein (<1.0) mg/dL NT-Pro-B Natriuret Pep (0-125) pg/mL Total Protein (6.4-8.2) g/dl Albumin (3.4-5.0) g/dl Globulin gm/dL Albumin/Globulin Ratio (1-2) TSH 3rd Generation 2.068 (0.358-3.74) uIU/mL Urine Color (Yellow) Urine Appearance (Clear) Urine pH (5.0-8.0) Ur Specific [place] (1.005-1.030) Urine Protein (Negative) Urine Glucose (UA) (Negative) Urine Ketones (Negative) Urine Occult Blood (Negative) Urine Nitrite (Negative) Urine Bilirubin (Negative) Urine Urobilinogen (0.2-1.0) Ur Leukocyte Esterase (Negative) Urine RBC (0-5) /hpf Urine WBC (0-5) /hpf Ur Epithelial Cells (0-5) /hpf Urine Bacteria (FEW) /hpf Urine Mucus (FEW) /hpf Urine Opiates Screen (NEGATIVE) Ur Buprenorphine Scrn (NEGATIVE) Ur Oxycodone Screen (NEGATIVE) Urine Methadone Screen (NEGATIVE) Ur Propoxyphene Screen (NEGATIVE) Ur Barbiturates Screen (NEGATIVE) Ur Tricyclics Screen (NEGATIVE) Ur Phencyclidine Scrn (NEGATIVE) Ur Amphetamine Screen (NEGATIVE) U Methamphetamines Scrn (NEGATIVE) U Benzodiazepines Scrn (NEGATIVE) U Cocaine Metab Screen (NEGATIVE) U Marijuana (THC) Screen (NEGATIVE) Rheumatoid Factor Scrn Negative (NEGATIVE) Monoscreen (NEGATIVE) 11/19/17 11/19/17 11/19/17 Range/Units 17:25 17:25 17:25 WBC (3.98-10.04) K/mm3 RBC (3.98-5.22) M/mm3 Hgb (11.2-15.7) gm/L Hct (34.1-44.9) % MCV (79.4-94.8) fl MCH (25.6-32.2) pg MCHC (32.2-35.5) g/dl RDW Std Deviation (36.4-46.3) fL Plt Count (182-369) K/mm3 MPV (9.4-12.3) fl Neutrophils % (Manual) (40-60) % Band Neutrophils % (0-10) % Lymphocytes % (Manual) (20-40) % Atypical Lymphs % % Monocytes % (Manual) (2-10) % Eosinophils % (Manual) (0.7-5.8) % Basophils % (Manual) (0.1-1.2) Platelet Estimate RBC Morph Comment ESR (0-20) mm/hr Sodium (136-145) mEq/L Potassium (3.5-5.1) mEq/L Chloride (98-107) mEq/L Carbon Dioxide (21-32) mEq/L Anion Gap (5-15) BUN (7-18) mg/dL Creatinine (0.55-1.02) mg/dL Est Cr Clr Drug Dosing mL/min Estimated GFR (MDRD) (>60) mL/min BUN/Creatinine Ratio (14-18) Glucose (74-106) mg/dL Hemoglobin A1c (4.50-6.20) % Uric Acid 4.9 (2.6-6.0) mg/dL Calcium (8.5-10.1) mg/dL Magnesium (1.8-2.4) mg/dl Total Bilirubin (0.2-1.0) mg/dL AST (15-37) U/L ALT (14-59) U/L Alkaline Phosphatase (46-116) U/L Creatine Kinase (26-192) U/L C-Reactive Protein (<1.0) mg/dL NT-Pro-B Natriuret Pep 113 (0-125) pg/mL Total Protein (6.4-8.2) g/dl Albumin (3.4-5.0) g/dl Globulin gm/dL Albumin/Globulin Ratio (1-2) TSH 3rd Generation (0.358-3.74) uIU/mL Urine Color (Yellow) Urine Appearance (Clear) Urine pH (5.0-8.0) Ur Specific [place] (1.005-1.030) Urine Protein (Negative) Urine Glucose (UA) (Negative) Urine Ketones (Negative) Urine Occult Blood (Negative) Urine Nitrite (Negative) Urine Bilirubin (Negative) Urine Urobilinogen (0.2-1.0) Ur Leukocyte Esterase (Negative) Urine RBC (0-5) /hpf Urine WBC (0-5) /hpf Ur Epithelial Cells (0-5) /hpf Urine Bacteria (FEW) /hpf Urine Mucus (FEW) /hpf Urine Opiates Screen (NEGATIVE) Ur Buprenorphine Scrn (NEGATIVE) Ur Oxycodone Screen (NEGATIVE) Urine Methadone Screen (NEGATIVE) Ur Propoxyphene Screen (NEGATIVE) Ur Barbiturates Screen (NEGATIVE) Ur Tricyclics Screen (NEGATIVE) Ur Phencyclidine Scrn (NEGATIVE) Ur Amphetamine Screen (NEGATIVE) U Methamphetamines Scrn (NEGATIVE) U Benzodiazepines Scrn (NEGATIVE) U Cocaine Metab Screen (NEGATIVE) U Marijuana (THC) Screen (NEGATIVE) Rheumatoid Factor Scrn (NEGATIVE) Monoscreen Negative (NEGATIVE) 11/19/17 11/19/17 Range/Units 18:39 18:39 WBC (3.98-10.04) K/mm3 RBC (3.98-5.22) M/mm3 Hgb (11.2-15.7) gm/L Hct (34.1-44.9) % MCV (79.4-94.8) fl MCH (25.6-32.2) pg MCHC (32.2-35.5) g/dl RDW Std Deviation (36.4-46.3) fL Plt Count (182-369) K/mm3 MPV (9.4-12.3) fl Neutrophils % (Manual) (40-60) % Band Neutrophils % (0-10) % Lymphocytes % (Manual) (20-40) % Atypical Lymphs % % Monocytes % (Manual) (2-10) % Eosinophils % (Manual) (0.7-5.8) % Basophils % (Manual) (0.1-1.2) Platelet Estimate RBC Morph Comment ESR (0-20) mm/hr Sodium (136-145) mEq/L Potassium (3.5-5.1) mEq/L Chloride (98-107) mEq/L Carbon Dioxide (21-32) mEq/L Anion Gap (5-15) BUN (7-18) mg/dL Creatinine (0.55-1.02) mg/dL Est Cr Clr Drug Dosing mL/min Estimated GFR (MDRD) (>60) mL/min BUN/Creatinine Ratio (14-18) Glucose (74-106) mg/dL Hemoglobin A1c (4.50-6.20) % Uric Acid (2.6-6.0) mg/dL Calcium (8.5-10.1) mg/dL Magnesium (1.8-2.4) mg/dl Total Bilirubin (0.2-1.0) mg/dL AST (15-37) U/L ALT (14-59) U/L Alkaline Phosphatase (46-116) U/L Creatine Kinase (26-192) U/L C-Reactive Protein (<1.0) mg/dL NT-Pro-B Natriuret Pep (0-125) pg/mL Total Protein (6.4-8.2) g/dl Albumin (3.4-5.0) g/dl Globulin gm/dL Albumin/Globulin Ratio (1-2) TSH 3rd Generation (0.358-3.74) uIU/mL Urine Color Yellow (Yellow) Urine Appearance Slt cloudy H (Clear) Urine pH 6.0 (5.0-8.0) Ur Specific [place] 1.010 (1.005-1.030) Urine Protein 1+ H (Negative) Urine Glucose (UA) Negative (Negative) Urine Ketones Trace H (Negative) Urine Occult Blood 3+ H (Negative) Urine Nitrite Negative (Negative) Urine Bilirubin 1+ H (Negative) Urine Urobilinogen 4.0 H (0.2-1.0) Ur Leukocyte Esterase 1+ H (Negative) Urine RBC 5-10 H (0-5) /hpf Urine WBC 10-20 H (0-5) /hpf Ur Epithelial Cells 10-20 H (0-5) /hpf Urine Bacteria Few (FEW) /hpf Urine Mucus Not seen (FEW) /hpf Urine Opiates Screen Negative (NEGATIVE) Ur Buprenorphine Scrn Negative (NEGATIVE) Ur Oxycodone Screen Presumptive positive H (NEGATIVE) Urine Methadone Screen Negative (NEGATIVE) Ur Propoxyphene Screen Negative (NEGATIVE) Ur Barbiturates Screen Negative (NEGATIVE) Ur Tricyclics Screen Negative (NEGATIVE) Ur Phencyclidine Scrn Negative (NEGATIVE) Ur Amphetamine Screen Negative (NEGATIVE) U Methamphetamines Scrn Negative (NEGATIVE) U Benzodiazepines Scrn Negative (NEGATIVE) U Cocaine Metab Screen Negative (NEGATIVE) U Marijuana (THC) Screen Presumptive positive H (NEGATIVE) Rheumatoid Factor Scrn (NEGATIVE) Monoscreen (NEGATIVE) Meds: Medications Generic Name Dose Route Start Last Admin Trade Name Freq PRN Reason Stop Dose Admin Acetaminophen 650 mg 11/19/17 20:08 Tylenol PO Q4H PRN Pain (Mild 1-3)/fever Hydrocodone Bitart/Acetaminophen 1 tab 11/19/17 20:08 11/21/17 05:26 [place] 325-5 Mg PO 1 tab Q4H PRN Administration Pain (moderate 4-6) Albuterol/Ipratropium 3 ml 11/19/17 20:08 Duoneb 3.0-0.5 Mg/3 Ml NEB Q4H PRN Shortness Of Breath/wheezing Aspirin 81 mg 11/20/17 09:00 11/20/17 08:23 Aspirin PO 81 mg DAILY NICOLE Administration Bisacodyl 5 mg 11/19/17 20:08 Dulcolax PO DAILY PRN Constipation Dextrose/Water 50 ml 11/19/17 20:40 Dextrose 50% In Water IVPUSH ASDIRECTED PRN Hypoglycemia Docusate Sodium 100 mg 11/19/17 20:08 11/20/17 08:42 Colace PO 100 mg BID PRN Administration Constipation Glipizide 5 mg 11/19/17 21:00 11/20/17 21:46 Glucotrol Xl PO 5 mg BID NCIOLE Administration Hydralazine HCl 20 mg 11/19/17 20:07 Apresoline IVPUSH Q4H PRN Hypertension Hydromorphone HCl 0.25 mg 11/19/17 20:08 11/21/17 02:57 Dilaudid IVPUSH 0.25 mg Q2H PRN Administration Pain (severe 7-10) Promethazine HCl 12.5 mg/ 50.5 mls @ 100 mls/hr 11/19/17 20:08 Sodium Chloride IV Q6H PRN Nausea/Vomiting Insulin Aspart 0 unit 11/19/17 22:00 11/20/17 22:17 Novolog SUBCUT 1 unit QIDACANDBED NICOLE Administration Protocol Lisinopril 10 mg 11/20/17 09:00 11/20/17 08:25 Prinivil PO 10 mg DAILY NICOLE Administration Lorazepam 2 mg 11/19/17 20:07 Ativan IVPUSH Q4H PRN Seizures Lorazepam 1 mg 11/19/17 20:08 Ativan IV Q6H PRN Anxiety Magnesium Sulfate 0 dose 11/19/17 20:15 Pharmacy To Dose - Magnesium Replacement .XX ASDIRECTED PRN RX TO WATCH MAG LEVELS Metformin HCl 500 mg 11/20/17 09:00 11/20/17 08:25 Glucophage PO 500 mg DAILY NICOLE Administration Metoprolol Tartrate 5 mg 11/19/17 20:07 Lopressor IVPUSH Q4H PRN Tachycardia Ondansetron HCl 4 mg 11/19/17 20:05 Zofran Odt PO Q6H PRN Nausea\vomiting Ondansetron HCl 4 mg 11/19/17 20:08 Zofran IV Q6H PRN Nausea/Vomiting Oral Electrolytes 2 each 11/20/17 09:00 11/20/17 21:46 Thermotabs PO 2 each BID NICOLE Administration Pantoprazole Sodium 40 mg 11/20/17 07:45 11/21/17 06:43 Protonix PO 40 mg DAILY@0700 NICOLE Administration Polyethylene Glycol 17 gm 04/26/18 20:08 Miralax PO DAILY PRN Constipation Potassium Chloride 20 meq 11/20/17 09:00 11/20/17 08:27 Klor-Con M20 PO 20 meq DAILY NICOLE Administration Potassium Chloride 0 dose 11/19/17 20:15 Pharmacy To Dose - Potassium Replacement .XX ASDIRECTED PRN RX TO WATCH Prednisone 60 mg 11/21/17 07:00 11/21/17 06:43 Prednisone PO 60 mg WITHBREAKFAST NICOLE Administration Senna/Docusate Sodium 1 tab 11/19/17 20:08 Senna Plus PO BID PRN Constipation Temazepam 15 mg 11/19/17 20:08 Restoril PO BEDTIME PRN Sleep Discontinued Medications Generic Name Dose Route Start Last Admin Trade Name Freq PRN Reason Stop Dose Admin Hydromorphone HCl 1 mg 11/19/17 16:44 11/19/17 17:25 Dilaudid IVPUSH 11/19/17 16:45 Not Given ONETIME ONE Hydromorphone HCl 1 mg 11/19/17 17:06 11/19/17 17:26 Dilaudid IM 11/19/17 17:07 Not Given ONETIME ONE Hydromorphone HCl 1 mg 11/19/17 17:10 11/19/17 17:21 Dilaudid IM 11/19/17 17:11 1 mg ONETIME ONE Administration Sodium Chloride 1,000 mls @ 500 mls/hr 11/19/17 16:45 Normal Saline IV ASDIRECTED NICOLE Sodium Chloride 1,000 mls @ 999 mls/hr 11/19/17 18:45 11/19/17 18:41 Normal Saline IV 999 mls/hr ASDIRECTED NICOLE Administration Potassium Chloride 10 meq/ 100 mls @ 100 mls/hr 11/19/17 18:32 11/19/17 18:41 Premix IV 11/19/17 19:31 100 mls/hr ASDIRECTED STA Administration Potassium Chloride 10 meq/ 100 mls @ 100 mls/hr 11/19/17 18:33 11/19/17 21:49 Premix IV 11/19/17 19:32 Not Given ONETIME ONE Potassium Chloride 10 meq/ 100 mls @ 100 mls/hr 11/19/17 20:30 11/19/17 21:50 Premix IV 11/20/17 01:29 Not Given Q1H NICOLE Ketorolac Tromethamine 30 mg 11/19/17 16:45 Toradol IVPUSH ONETIME NICOLE Ketorolac Tromethamine 30 mg 11/19/17 17:07 11/19/17 17:20 Toradol IM 11/19/17 17:08 30 mg ONETIME ONE Administration Metoclopramide HCl 10 mg 11/19/17 16:44 11/19/17 17:26 Reglan IVPUSH 11/19/17 16:45 Not Given ONETIME ONE Metoclopramide HCl 10 mg 11/19/17 17:07 11/19/17 17:19 Reglan IM 11/19/17 17:08 10 mg ONETIME ONE Administration Omeprazole 20 mg 11/20/17 09:00 Omeprazole PO DAILY NICOLE Pneumococcal Polyvalent Vaccine 0.5 ml 11/19/17 21:17 Pneumovax 23 IM 11/19/17 21:18 .ONCE ONE Potassium Chloride 60 meq 11/19/17 21:39 11/19/17 22:27 Klor-Con M20 PO 11/19/17 21:40 60 meq ONETIME ONE Administration Prednisone 60 mg 11/20/17 08:24 11/20/17 08:39 Prednisone PO 11/20/17 08:25 60 mg ONETIME ONE Administration - Radiology Interpretation Free Text/Narrative:: 42-year-old female comes to the ED with complaints of generalized myalgia. Associated headache cervical neck pain diffuse low back pain severe pain in both shoulders both knees hips to walking. Questionable low-grade fever productive cough. She is a type II diabetic but does not check her blood sugars. She is currently on metformin 500 mg twice daily. She is on omeprazole 20 mg daily as she's been told she has a peptic ulcer. Plan IV normal saline at open as she has a resting tachycardia of 1 10/m a lips are dry and tongue is dry and coated. Will give Dilaudid 1 mg IV with Reglan 10 mg IV and Toradol 30 mg IV for pain relief. Routine labs to be collected including TSH CRP and ESR. Appetite factor also be done. One view chest x-ray will be done due to reported pneumonia in September of this year and still having a productive cough. She will also have an influenza screen. - Re-Assessments/Exams Free Text/Narrative Re-Assessment/Exam: 11/19/17 17:09 nurses report inability to obtain IV access. Therefore above medications were given intramuscularly. Labs will be collected. Since she is afebrile blood cultures were not ordered. 11/19/17 18:32 Labs are back. They show white count of 12.15 i.e. mildly elevated the differentials 86% neutrophils with no bands hemoglobin is 11.8 which is slightly low. Hematocrit is 35.1. MCV is normal. Platelet count low normal at 133,000. Sodium is low at 128. Potassium is low at 3.1. Chloride is 95 , bicarbonate is 25. Anion gap is normal 11.1. BUN is 13 with a creatinine of 0.9. Glucose is 127. Hemoglobin A1c is 7.40. Calcium is normal at 8.7. Magnesium normal at 2.0. Liver function normal. Creatine kinase normal at 14. C- reactive protein is markedly elevated at 17.8. BNP is 113. B1 fraction is low at 2.3. Total protein normal at 7.8. Thyroid function is normal with a TSH of 2.06. Urinalysis has not yet been collected. Also influenza screen is not yet back. Care will be transferred to Dr. Faulkner at change of shift. The urinalysis and influenza screen are pending. Concern for persistent underlying pneumonia. Significantly elevated CRP is worrisome for underlying infectious process. esr is 70. This suggests significant underlying inflammatory process with antibiotic formation. Vital signs remained stable.
[2017-11-19] MEDS ORDERED: HYDROmorphone 1 MG/ML Syringe IM ONE (17:06)
[2017-11-19] MEDS ORDERED: Metoclopramide 10 MG/2 ML SDV IM ONE (17:07)
[2017-11-19] MEDS ORDERED: Ketorolac 30 MG/ML SDV IM ONE (17:07)
[2017-11-19] MEDS ORDERED: HYDROmorphone 0.5 MG/0.5 ML SYRINGE IM ONE (17:10)
[2017-11-19] MEDS ORDERED: Potassium Chloride 10 MEQ in Premix Bag 1 BAG IV STA (18:32)
[2017-11-19] MEDS ORDERED: Potassium Chloride 10 MEQ in Premix Bag 1 BAG IV ONE (18:33)
[2017-11-19] MEDS ORDERED: Ondansetron 4 MG Tab.DIS PO PRN (20:05)
[2017-11-19] MEDS ORDERED: LORazepam 2 MG/ML SDV IVPUSH PRN (20:07)
[2017-11-19] MEDS ORDERED: hydrALAZINE 20 MG/ML SDV IVPUSH PRN (20:07)
[2017-11-19] MEDS ORDERED: Metoprolol Tartrate 5 MG/5 ML SDV IVPUSH PRN (20:07)
[2017-11-19] MEDS ORDERED: Polyethylene Glycol 3350 Powder 17 GM Packet PO PRN (20:08)
[2017-11-19] MEDS ORDERED: Albuterol/Ipratropium 3.0-0.5 MG/3 ML Neb Soln NEB PRN (20:08)
[2017-11-19] MEDS ORDERED: LORazepam 2 MG/ML SDV IV PRN (20:08)
[2017-11-19] MEDS ORDERED: Promethazine 12.5 MG in Sodium Chloride 0.9% 50 ML IV PRN (20:08)
[2017-11-19] MEDS ORDERED: Temazepam 15 MG Cap PO PRN (20:08)
[2017-11-19] MEDS ORDERED: Ondansetron 4 MG/2 ML SDV IV PRN (20:08)
[2017-11-19] MEDS ORDERED: Docusate Sodium 100 MG Cap PO PRN (20:08)
[2017-11-19] MEDS ORDERED: Acetaminophen 325 MG Tab PO PRN (20:08)
[2017-11-19] MEDS ORDERED: Bisacodyl 5 MG Tab PO PRN (20:08)
[2017-11-19] MEDS ORDERED: 50% Dextrose in Water 50 ML Syringe IVPUSH PRN (20:40)
[2017-11-19] MEDS ORDERED: Pneumococcal Polyvalent-23 Vaccine 0.5 ML SDV IM ONE (21:17)
[2017-11-19] MEDS ORDERED: Potassium Chloride 20 MEQ Tab.ER PO ONE (21:39)
[2017-11-19] MEDS: Potassium Chloride 10 MEQ in Premix Bag 1 BAG IV SCH (21:50)
--- NOTE | 2017-11-19 21:54 | PCM.HP ---
H&P History of Present Illness - General Date of Service: 11/19/17 Admit Problem/Dx: Admission Diagnosis/Problem Admission Diagnosis/Problem Hyponatremia Source of Information: Patient, Old Records, Provider, RN Notes Reviewed History Limitations: Reports: No Limitations - History of Present Illness Initial Comments - Free Text/Narative: This is a 42 yo female with past medical hx/o new onset of diabetes and morbid obesity who comes in with multiple complaints of joint pain. She denies any recent trauma or falls. Her symptom is associated with headache and nausea but without vomiting. Patient was recently seen in the emergency department with similar complaints and at that time she was diagnosed with new onset of type 2 diabetes. Currently she is on metformin 500 mg twice a day for diabetic control. Patient was told she had peptic ulcers in the past by her primary care doctor but she has not had any endoscopic procedures to confirm it. Patient carries no history of autoimmune or any known rheumatologic diseases. Her initial workup in emergency department shows a WBC of 12.15, platelet count of 133, neutrophils of 86%, lymphocytes of 12%, and monocytes of 1%. Her chemistry is significant for sodium of 128, potassium of 2.1, chloride of 95, glucose of 127, hemoglobin A1c of 7.4, CK of 14, CRP of 17.8, and albumin of 2.3. Her UA is not suggestive of urinary tract infection. Her RF factor screening is negative. Her chest x-ray shows no acute abnormal findings. Patient is being admitted for diffuse polyarthralgia. She is full code. Generalized Pain Score (Numeric/FACES): 10 Left Knee Pain Score (Numeric/FACES): 7 - Related Data Allergies/Adverse Reactions: Allergies Allergy/AdvReac Type Severity Reaction Status Date / Time No Known Allergies Allergy Verified 11/19/17 21:13 Home Medications: Home Meds Omeprazole Magnesium [Prilosec Otc] 20 mg PO DAILY #14 tablet. 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: Musculoskeletal History: Reports: None Endocrine/Metabolic History: Reports: Diabetes, Type II, Obesity/BMI 30+ - Past Surgical History Respiratory Surgical History: Reports: None GI Surgical History: Reports: None Musculoskeletal Surgical History: Reports: ORIF Social & Family History - Family History Family Medical History: Noncontributory - Tobacco Use Smoking Status *Q: Current Every Day Smoker Years of Tobacco use: 2 Packs/Tins Daily: 0.1 Used Tobacco, but Quit: No - Caffeine Use Caffeine Use: Reports: Coffee, Soda, Tea - Recreational Drug Use Recreational Drug Use: No - Living Situation & Occupation Living situation: Reports: Single, with Family Occupation: Employed H&P Review of Systems - Review of Systems: Review Of Systems: See Below General: Reports: Fever, Malaise, Weakness, Fatigue, Decreased Appetite. Denies : Chills HEENT: Reports: No Symptoms Pulmonary: Reports: Shortness of Breath, Cough Cardiovascular: Reports: Chest Pain, Dyspnea on Exertion, Lightheadedness Gastrointestinal: Reports: Abdominal Pain, Decreased Appetite, Nausea. Denies: Anorexia, Constipation, Diarrhea, Difficulty Swallowing, Distension, Vomiting Genitourinary: Reports: Frequency Musculoskeletal: Reports: Back Pain, Joint Pain, Other (Multiple joints bilaterally) Skin: Denies: Cyanosis, Jaundice, Mottled, Pallor, Diaphoresis, Dryness, Bruising, Pruritis, Rash, Erythema, Change in Color, Lumps, Urticaria Psychiatric: Denies: Depression, Anxiety, Agitation, Hallucinations Neurological: Reports: Difficulty Walking, Weakness. Denies: Confusion, Dizziness, Headache, Numbness, Paresthesia, Pre-Existing Deficit, Seizure, Syncope, Tingling, Tremors, Trouble Speaking, Gait Disturbance Hematologic/Lymphatic: Reports: No Symptoms Immunologic: Reports: No Symptoms Exam - Exam Exam: See Below - Vital Signs Vital Signs: Last Vital Signs Temp 36.2 C 11/19/17 16:15 Pulse 105 H 11/19/17 16:15 Resp 16 11/19/17 16:15 BP 114/67 11/19/17 16:15 Pulse Ox 94 L 11/19/17 16:15 Weight: 149.277 kg - Exam General: Alert, Oriented, Cooperative, Other (Morbidly Obese). No: Mild Distress HEENT: Conjunctiva Clear, EACs Clear, EOMI, Hearing Intact, Mucosa Moist & [place] , Nares Patent, Normal Nasal Septum, Posterior Pharynx Clear, Pupils Equal, Pupils Reactive Neck: Supple, Trachea Midline, Full Range of Motion, Other (short and thick neck ) Lungs: Clear to Auscultation, Normal Respiratory Effort, Decreased Breath Sounds Cardiovascular: Regular Rate, Regular Rhythm GI/Abdominal Exam: Normal Bowel Sounds, Soft, Non-Tender, No Organomegaly, No Distention, No Abnormal Bruit, No Mass, Other (Obese) (Female) Exam: Deferred Rectal (Female) Exam: Deferred Back Exam: Normal Inspection, Decreased Range of Motion Extremities: Normal Inspection, Normal Range of Motion, Non-Tender, No Pedal Edema, Normal Capillary Refill Peripheral Pulses: 3+: Posterior Tibial (L), Posterior Tibial (R), Dorsalis Pedis (L), Dorsalis Pedis (R) Skin: Warm, Dry, Intact. No: Rash, Petechia, Ecchymosis, Wound Neuro Extensive - Mental Status: Oriented x3, Normal Cognition, Memory Intact Neuro Extensive - Motor, Sensory, Reflexes: CN II-XII Intact, Abnormal Gait Psychiatric: Alert, Normal Affect, Normal Mood - Patient Data Lab Results Last 24 hrs: Laboratory Results - last 24 hr 11/19/17 11/19/17 11/19/17 Range/Units 17:25 17:25 17:25 WBC 12.15 H (3.98-10.04) K/mm3 RBC 4.13 (3.98-5.22) M/mm3 Hgb 11.8 (11.2-15.7) gm/L Hct 35.1 (34.1-44.9) % MCV 85.0 (79.4-94.8) fl MCH 28.6 (25.6-32.2) pg MCHC 33.6 (32.2-35.5) g/dl RDW Std Deviation 43.7 (36.4-46.3) fL Plt Count 133 L (182-369) K/mm3 MPV 11.7 (9.4-12.3) fl Neutrophils % (Manual) 86 H (40-60) % Band Neutrophils % 0 (0-10) % Lymphocytes % (Manual) 12 L (20-40) % Atypical Lymphs % 0 % Monocytes % (Manual) 1 L (2-10) % Eosinophils % (Manual) 1 (0.7-5.8) % Basophils % (Manual) 0 L (0.1-1.2) Platelet Estimate Adequate RBC Morph Comment Normal ESR 80 H (0-20) mm/hr Sodium 128 L (136-145) mEq/L Potassium 3.1 L (3.5-5.1) mEq/L Chloride 95 L (98-107) mEq/L Carbon Dioxide 25 (21-32) mEq/L Anion Gap 11.1 (5-15) BUN 13 (7-18) mg/dL Creatinine 0.9 (0.55-1.02) mg/dL Est Cr Clr Drug Dosing 86.84 mL/min Estimated GFR (MDRD) > 60 (>60) mL/min BUN/Creatinine Ratio 14.4 (14-18) Glucose 127 H (74-106) mg/dL POC Glucose (70-105) mg/dL Hemoglobin A1c (4.50-6.20) % Uric Acid (2.6-6.0) mg/dL Calcium 8.7 (8.5-10.1) mg/dL Magnesium 2.0 (1.8-2.4) mg/dl Total Bilirubin 0.9 (0.2-1.0) mg/dL AST 28 (15-37) U/L ALT 29 (14-59) U/L Alkaline Phosphatase 63 (46-116) U/L Creatine Kinase 14 L (26-192) U/L C-Reactive Protein 17.8 H* (<1.0) mg/dL NT-Pro-B Natriuret Pep (0-125) pg/mL Total Protein 7.8 (6.4-8.2) g/dl Albumin 2.3 L (3.4-5.0) g/dl Globulin 5.5 gm/dL Albumin/Globulin Ratio 0.4 L (1-2) TSH 3rd Generation (0.358-3.74) uIU/mL Urine Color (Yellow) Urine Appearance (Clear) Urine pH (5.0-8.0) Ur Specific [place] (1.005-1.030) Urine Protein (Negative) Urine Glucose (UA) (Negative) Urine Ketones (Negative) Urine Occult Blood (Negative) Urine Nitrite (Negative) Urine Bilirubin (Negative) Urine Urobilinogen (0.2-1.0) Ur Leukocyte Esterase (Negative) Urine RBC (0-5) /hpf Urine WBC (0-5) /hpf Ur Epithelial Cells (0-5) /hpf Urine Bacteria (FEW) /hpf Urine Mucus (FEW) /hpf Urine Opiates Screen (NEGATIVE) Ur Buprenorphine Scrn (NEGATIVE) Ur Oxycodone Screen (NEGATIVE) Urine Methadone Screen (NEGATIVE) Ur Propoxyphene Screen (NEGATIVE) Ur Barbiturates Screen (NEGATIVE) Ur Tricyclics Screen (NEGATIVE) Ur Phencyclidine Scrn (NEGATIVE) Ur Amphetamine Screen (NEGATIVE) U Methamphetamines Scrn (NEGATIVE) U Benzodiazepines Scrn (NEGATIVE) U Cocaine Metab Screen (NEGATIVE) U Marijuana (THC) Screen (NEGATIVE) Rheumatoid Factor Scrn (NEGATIVE) 11/19/17 11/19/17 11/19/17 Range/Units 17:25 17:25 17:25 WBC (3.98-10.04) K/mm3 RBC (3.98-5.22) M/mm3 Hgb (11.2-15.7) gm/L Hct (34.1-44.9) % MCV (79.4-94.8) fl MCH (25.6-32.2) pg MCHC (32.2-35.5) g/dl RDW Std Deviation (36.4-46.3) fL Plt Count (182-369) K/mm3 MPV (9.4-12.3) fl Neutrophils % (Manual) (40-60) % Band Neutrophils % (0-10) % Lymphocytes % (Manual) (20-40) % Atypical Lymphs % % Monocytes % (Manual) (2-10) % Eosinophils % (Manual) (0.7-5.8) % Basophils % (Manual) (0.1-1.2) Platelet Estimate RBC Morph Comment ESR (0-20) mm/hr Sodium (136-145) mEq/L Potassium (3.5-5.1) mEq/L Chloride (98-107) mEq/L Carbon Dioxide (21-32) mEq/L Anion Gap (5-15) BUN (7-18) mg/dL Creatinine (0.55-1.02) mg/dL Est Cr Clr Drug Dosing mL/min Estimated GFR (MDRD) (>60) mL/min BUN/Creatinine Ratio (14-18) Glucose (74-106) mg/dL POC Glucose (70-105) mg/dL Hemoglobin A1c 7.40 H (4.50-6.20) % Uric Acid (2.6-6.0) mg/dL Calcium (8.5-10.1) mg/dL Magnesium (1.8-2.4) mg/dl Total Bilirubin (0.2-1.0) mg/dL AST (15-37) U/L ALT (14-59) U/L Alkaline Phosphatase (46-116) U/L Creatine Kinase (26-192) U/L C-Reactive Protein (<1.0) mg/dL NT-Pro-B Natriuret Pep (0-125) pg/mL Total Protein (6.4-8.2) g/dl Albumin (3.4-5.0) g/dl Globulin gm/dL Albumin/Globulin Ratio (1-2) TSH 3rd Generation 2.068 (0.358-3.74) uIU/mL Urine Color (Yellow) Urine Appearance (Clear) Urine pH (5.0-8.0) Ur Specific [place] (1.005-1.030) Urine Protein (Negative) Urine Glucose (UA) (Negative) Urine Ketones (Negative) Urine Occult Blood (Negative) Urine Nitrite (Negative) Urine Bilirubin (Negative) Urine Urobilinogen (0.2-1.0) Ur Leukocyte Esterase (Negative) Urine RBC (0-5) /hpf Urine WBC (0-5) /hpf Ur Epithelial Cells (0-5) /hpf Urine Bacteria (FEW) /hpf Urine Mucus (FEW) /hpf Urine Opiates Screen (NEGATIVE) Ur Buprenorphine Scrn (NEGATIVE) Ur Oxycodone Screen (NEGATIVE) Urine Methadone Screen (NEGATIVE) Ur Propoxyphene Screen (NEGATIVE) Ur Barbiturates Screen (NEGATIVE) Ur Tricyclics Screen (NEGATIVE) Ur Phencyclidine Scrn (NEGATIVE) Ur Amphetamine Screen (NEGATIVE) U Methamphetamines Scrn (NEGATIVE) U Benzodiazepines Scrn (NEGATIVE) U Cocaine Metab Screen (NEGATIVE) U Marijuana (THC) Screen (NEGATIVE) Rheumatoid Factor Scrn Negative (NEGATIVE) 11/19/17 11/19/17 11/19/17 Range/Units 17:25 17:25 18:39 WBC (3.98-10.04) K/mm3 RBC (3.98-5.22) M/mm3 Hgb (11.2-15.7) gm/L Hct (34.1-44.9) % MCV (79.4-94.8) fl MCH (25.6-32.2) pg MCHC (32.2-35.5) g/dl RDW Std Deviation (36.4-46.3) fL Plt Count (182-369) K/mm3 MPV (9.4-12.3) fl Neutrophils % (Manual) (40-60) % Band Neutrophils % (0-10) % Lymphocytes % (Manual) (20-40) % Atypical Lymphs % % Monocytes % (Manual) (2-10) % Eosinophils % (Manual) (0.7-5.8) % Basophils % (Manual) (0.1-1.2) Platelet Estimate RBC Morph Comment ESR (0-20) mm/hr Sodium (136-145) mEq/L Potassium (3.5-5.1) mEq/L Chloride (98-107) mEq/L Carbon Dioxide (21-32) mEq/L Anion Gap (5-15) BUN (7-18) mg/dL Creatinine (0.55-1.02) mg/dL Est Cr Clr Drug Dosing mL/min Estimated GFR (MDRD) (>60) mL/min BUN/Creatinine Ratio (14-18) Glucose (74-106) mg/dL POC Glucose (70-105) mg/dL Hemoglobin A1c (4.50-6.20) % Uric Acid 4.9 (2.6-6.0) mg/dL Calcium (8.5-10.1) mg/dL Magnesium (1.8-2.4) mg/dl Total Bilirubin (0.2-1.0) mg/dL AST (15-37) U/L ALT (14-59) U/L Alkaline Phosphatase (46-116) U/L Creatine Kinase (26-192) U/L C-Reactive Protein (<1.0) mg/dL NT-Pro-B Natriuret Pep 113 (0-125) pg/mL Total Protein (6.4-8.2) g/dl Albumin (3.4-5.0) g/dl Globulin gm/dL Albumin/Globulin Ratio (1-2) TSH 3rd Generation (0.358-3.74) uIU/mL Urine Color Yellow (Yellow) Urine Appearance Slt cloudy H (Clear) Urine pH 6.0 (5.0-8.0) Ur Specific [place] 1.010 (1.005-1.030) Urine Protein 1+ H (Negative) Urine Glucose (UA) Negative (Negative) Urine Ketones Trace H (Negative) Urine Occult Blood 3+ H (Negative) Urine Nitrite Negative (Negative) Urine Bilirubin 1+ H (Negative) Urine Urobilinogen 4.0 H (0.2-1.0) Ur Leukocyte Esterase 1+ H (Negative) Urine RBC 5-10 H (0-5) /hpf Urine WBC 10-20 H (0-5) /hpf Ur Epithelial Cells 10-20 H (0-5) /hpf Urine Bacteria Few (FEW) /hpf Urine Mucus Not seen (FEW) /hpf Urine Opiates Screen (NEGATIVE) Ur Buprenorphine Scrn (NEGATIVE) Ur Oxycodone Screen (NEGATIVE) Urine Methadone Screen (NEGATIVE) Ur Propoxyphene Screen (NEGATIVE) Ur Barbiturates Screen (NEGATIVE) Ur Tricyclics Screen (NEGATIVE) Ur Phencyclidine Scrn (NEGATIVE) Ur Amphetamine Screen (NEGATIVE) U Methamphetamines Scrn (NEGATIVE) U Benzodiazepines Scrn (NEGATIVE) U Cocaine Metab Screen (NEGATIVE) U Marijuana (THC) Screen (NEGATIVE) Rheumatoid Factor Scrn (NEGATIVE) 11/19/17 11/19/17 Range/Units 18:39 21:47 WBC (3.98-10.04) K/mm3 RBC (3.98-5.22) M/mm3 Hgb (11.2-15.7) gm/L Hct (34.1-44.9) % MCV (79.4-94.8) fl MCH (25.6-32.2) pg MCHC (32.2-35.5) g/dl RDW Std Deviation (36.4-46.3) fL Plt Count (182-369) K/mm3 MPV (9.4-12.3) fl Neutrophils % (Manual) (40-60) % Band Neutrophils % (0-10) % Lymphocytes % (Manual) (20-40) % Atypical Lymphs % % Monocytes % (Manual) (2-10) % Eosinophils % (Manual) (0.7-5.8) % Basophils % (Manual) (0.1-1.2) Platelet Estimate RBC Morph Comment ESR (0-20) mm/hr Sodium (136-145) mEq/L Potassium (3.5-5.1) mEq/L Chloride (98-107) mEq/L Carbon Dioxide (21-32) mEq/L Anion Gap (5-15) BUN (7-18) mg/dL Creatinine (0.55-1.02) mg/dL Est Cr Clr Drug Dosing mL/min Estimated GFR (MDRD) (>60) mL/min BUN/Creatinine Ratio (14-18) Glucose (74-106) mg/dL POC Glucose 156 H (70-105) mg/dL Hemoglobin A1c (4.50-6.20) % Uric Acid (2.6-6.0) mg/dL Calcium (8.5-10.1) mg/dL Magnesium (1.8-2.4) mg/dl Total Bilirubin (0.2-1.0) mg/dL AST (15-37) U/L ALT (14-59) U/L Alkaline Phosphatase (46-116) U/L Creatine Kinase (26-192) U/L C-Reactive Protein (<1.0) mg/dL NT-Pro-B Natriuret Pep (0-125) pg/mL Total Protein (6.4-8.2) g/dl Albumin (3.4-5.0) g/dl Globulin gm/dL Albumin/Globulin Ratio (1-2) TSH 3rd Generation (0.358-3.74) uIU/mL Urine Color (Yellow) Urine Appearance (Clear) Urine pH (5.0-8.0) Ur Specific [place] (1.005-1.030) Urine Protein (Negative) Urine Glucose (UA) (Negative) Urine Ketones (Negative) Urine Occult Blood (Negative) Urine Nitrite (Negative) Urine Bilirubin (Negative) Urine Urobilinogen (0.2-1.0) Ur Leukocyte Esterase (Negative) Urine RBC (0-5) /hpf Urine WBC (0-5) /hpf Ur Epithelial Cells (0-5) /hpf Urine Bacteria (FEW) /hpf Urine Mucus (FEW) /hpf Urine Opiates Screen Negative (NEGATIVE) Ur Buprenorphine Scrn Negative (NEGATIVE) Ur Oxycodone Screen Presumptive positive H (NEGATIVE) Urine Methadone Screen Negative (NEGATIVE) Ur Propoxyphene Screen Negative (NEGATIVE) Ur Barbiturates Screen Negative (NEGATIVE) Ur Tricyclics Screen Negative (NEGATIVE) Ur Phencyclidine Scrn Negative (NEGATIVE) Ur Amphetamine Screen Negative (NEGATIVE) U Methamphetamines Scrn Negative (NEGATIVE) U Benzodiazepines Scrn Negative (NEGATIVE) U Cocaine Metab Screen Negative (NEGATIVE) U Marijuana (THC) Screen Presumptive positive H (NEGATIVE) Rheumatoid Factor Scrn (NEGATIVE) Result Diagrams: 11/20/17 06:25 11/20/17 06:25 Gurpreet Results Last 24 hrs: Microbiology 11/19/17 16:25 Influenza Type A Antigen Screen - Final Nasal, Unspecified NEGATIVE INFLUENZA A VIRUS AG Influenza Type B Antigen Screen - Final NEGATIVE INFLUENZA B VIRUS AG Problem List Initiated/Reviewed/Updated: Yes Orders Last 24hrs: Active Orders 24 hr Category Date Time Status Admission Status [Patient Status] [ADT] Routine ADT 11/19/17 20:26 Active Ambulate [RC] ASDIRECTED Care 11/19/17 20:08 Active Blood Glucose Check, Bedside [RC] QIDACANDBED Care 11/19/17 20:40 Active Oxygen Therapy [RC] PRN Care 11/19/17 20:08 Active RT Aerosol Therapy [RC] ASDIRECTED Care 11/19/17 20:12 Active Up ad Shelly [RC] ASDIRECTED Care 11/19/17 20:08 Active VTE/DVT Education [RC] PER UNIT ROUTINE Care 11/19/17 20:08 Active Vital Signs [RC] Q4H Care 11/19/17 20:08 Active Consult to Case Management [CONS] Routine Cons 11/19/17 20:12 Active Consult to Dietary [Consult to Color Making Supervisor] [CONS] Cons 11/19/17 20:41 Active Routine Consult to Desk Pen Set Assembler [CONS] Routine Cons 11/19/17 20:12 Active OT Evaluation and Treatment [CONS] Routine Cons 11/19/17 20:12 Active PT Evaluation and Treatment [CONS] Routine Cons 11/19/17 20:12 Active Regular Diet [DIET] Diet 11/19/17 Dinner Active Chest 1V Frontal [CR] Stat Exams 11/19/17 16:53 Taken BASIC METABOLIC PANEL,BMP [CHEM] AM Lab 11/20/17 05:11 Ordered BASIC METABOLIC PANEL,BMP [CHEM] AM Lab 11/21/17 05:11 Ordered BASIC METABOLIC PANEL,BMP [CHEM] AM Lab 11/22/17 05:11 Ordered BASIC METABOLIC PANEL,BMP [CHEM] AM Lab 11/23/17 05:11 Ordered BASIC METABOLIC PANEL,BMP [CHEM] AM Lab 11/24/17 05:11 Ordered C-REACTIVE PROTEIN [CHEM] AM Lab 11/20/17 05:11 Ordered CBC WITH AUTO DIFF [HEME] AM Lab 11/20/17 05:11 Ordered CBC WITH AUTO DIFF [HEME] AM Lab 11/21/17 05:11 Ordered CBC WITH AUTO DIFF [HEME] AM Lab 11/22/17 05:11 Ordered CBC WITH AUTO DIFF [HEME] AM Lab 11/23/17 05:11 Ordered CBC WITH AUTO DIFF [HEME] AM Lab 11/24/17 05:11 Ordered CULTURE BLOOD [BC] Stat Lab 11/19/17 17:25 Received CULTURE BLOOD [BC] Stat Lab 11/19/17 17:30 Received CULTURE URINE [RM] Stat Lab 11/19/17 18:39 Received DRUG SCREEN, URINE [URCHEM] Stat Lab 11/19/17 18:39 Ordered INFLUENZA A+B AG SCREEN [RM] Stat Lab 11/19/17 16:25 Ordered MAGNESIUM [CHEM] AM Lab 11/20/17 05:11 Ordered MAGNESIUM [CHEM] AM Lab 11/21/17 05:11 Ordered MAGNESIUM [CHEM] AM Lab 11/22/17 05:11 Ordered MAGNESIUM [CHEM] AM Lab 11/23/17 05:11 Ordered MAGNESIUM [CHEM] AM Lab 11/24/17 05:11 Ordered MISC TEST Stat Lab 11/19/17 20:16 Ordered SEDIMENTATION RATE AUTO [HEME] AM Lab 11/20/17 05:11 Ordered URIC ACID, URINE Stat Lab 11/19/17 18:39 Received Acetaminophen [Tylenol] Med 11/19/17 20:08 Pending 650 mg PO Q4H PRN Acetaminophen/HYDROcodone [[place] 325-5 MG] Med 11/19/17 20:08 Ordered 1 tab PO Q4H PRN Albuterol/Ipratropium [DuoNeb 3.0-0.5 MG/3 ML] Med 11/19/17 20:08 Ordered 3 ml NEB Q4H PRN Bisacodyl [Dulcolax] Med 11/19/17 20:08 Ordered 5 mg PO DAILY PRN Dextrose 50% in Water Med 11/19/17 20:40 Active 50 ml IVPUSH ASDIRECTED PRN Docusate Sodium [Colace] Med 11/19/17 20:08 Ordered 100 mg PO BID PRN Docusate Sodium/Sennosides [Senna Plus] Med 11/19/17 20:08 Ordered 1 tab PO BID PRN HYDROmorphone [Dilaudid] Med 11/19/17 20:08 Active 0.25 mg IVPUSH Q2H PRN Insulin Aspart [NovoLOG] Med 11/19/17 22:00 Active See Protocol SUBCUT QIDACANDBED LORazepam [Ativan] Med 11/19/17 20:08 Active 1 mg IV Q6H PRN LORazepam [Ativan] Med 11/19/17 20:07 Active 2 mg IVPUSH Q4H PRN Magnesium Rep Pharmacy to Dose [Pharmacy to Dose - Med 11/19/17 20:15 Pending Magnesium Replacement] 1 dose .XX ASDIRECTED Metoprolol Tartrate [Lopressor] Med 11/19/17 20:07 Active 5 mg IVPUSH Q4H PRN Omeprazole Magnesium [Prilosec Otc] Med 11/20/17 09:00 Ordered 20 mg PO DAILY Ondansetron [Zofran ODT] Med 11/19/17 20:05 Active 4 mg PO Q6H PRN Ondansetron [Zofran] Med 11/19/17 20:08 Active 4 mg IV Q6H PRN Polyethylene Glycol 3350 [MiraLAX] Med 11/19/17 20:08 Ordered 17 gm PO DAILY PRN Potassium Chloride [Potassium Chloride] Med 11/20/17 09:00 Ordered 20 meq PO DAILY Potassium Rep Pharmacy to Dose [Pharmacy to Dose - Med 11/19/17 20:15 Pending Potassium Replacement] 1 dose .XX ASDIRECTED Promethazine [Phenergan] 12.5 mg Med 11/19/17 20:08 Active Sodium Chloride 0.9% [Normal Saline] 50 ml IV Q6H Sodium Chloride 0.9% [Normal Saline] 1,000 ml Med 11/19/17 18:45 Active IV ASDIRECTED Temazepam [Restoril] Med 11/19/17 20:08 Ordered 15 mg PO BEDTIME PRN glipiZIDE [Glucotrol XL] Med 11/19/17 21:00 Ordered 5 mg PO BID hydrALAZINE [Apresoline] Med 11/19/17 20:07 Active 20 mg IVPUSH Q4H PRN metFORMIN Med 11/20/17 09:00 Ordered 500 mg PO DAILY Blood Culture x2 Reflex Set [OM.PC] Stat Oth 11/19/17 16:54 Ordered Resuscitation Status Routine Resus Stat 11/19/17 20:08 Ordered Medication Orders Acetaminophen (Tylenol) 650 mg PO Q4H PRN PRN Reason: Pain (Mild 1-3)/fever Hydrocodone Bitart/Acetaminophen ([place] 325-5 Mg) 1 tab PO Q4H PRN PRN Reason: Pain (moderate 4-6) Albuterol/Ipratropium (Duoneb 3.0-0.5 Mg/3 Ml) 3 ml NEB Q4H PRN PRN Reason: Shortness Of Breath/wheezing Bisacodyl (Dulcolax) 5 mg PO DAILY PRN PRN Reason: Constipation Dextrose/Water (Dextrose 50% In Water) 50 ml IVPUSH ASDIRECTED PRN PRN Reason: Hypoglycemia Docusate Sodium (Colace) 100 mg PO BID PRN PRN Reason: Constipation Glipizide (Glucotrol Xl) 5 mg PO BID [facility] Hydralazine HCl (Apresoline) 20 mg IVPUSH Q4H PRN PRN Reason: Hypertension Hydromorphone HCl (Dilaudid) 0.25 mg IVPUSH Q2H PRN PRN Reason: Pain (severe 7-10) Sodium Chloride (Normal Saline) 1,000 mls @ 999 mls/hr IV ASDIRECTED [facility] Last Admin: 11/19/17 18:41 Dose: 999 mls/hr Promethazine HCl 12.5 mg/ (Sodium Chloride) 50.5 mls @ 100 mls/hr IV Q6H PRN PRN Reason: Nausea/Vomiting Insulin Aspart (Novolog) 0 unit SUBCUT QIDACANDBED [facility]; Protocol Lorazepam (Ativan) 2 mg IVPUSH Q4H PRN PRN Reason: Seizures Lorazepam (Ativan) 1 mg IV Q6H PRN PRN Reason: Anxiety Magnesium Sulfate (Pharmacy To Dose - Magnesium Replacement) 1 dose .XX ASDIRECTED [facility] Metoprolol Tartrate (Lopressor) 5 mg IVPUSH Q4H PRN PRN Reason: Tachycardia Non-Formulary Medication (Metformin) 500 mg PO DAILY NICOLE Non-Formulary Medication (Omeprazole Magnesium [Prilosec Otc]) 20 mg PO DAILY NICOLE Non-Formulary Medication (Potassium Chloride [Potassium Chloride]) 20 meq PO DAILY [facility] Ondansetron HCl (Zofran Odt) 4 mg PO Q6H PRN PRN Reason: Nausea\\vomiting Ondansetron HCl (Zofran) 4 mg IV Q6H PRN PRN Reason: Nausea/Vomiting Polyethylene Glycol (Miralax) 17 gm PO DAILY PRN PRN Reason: Constipation Potassium Chloride (Pharmacy To Dose - Potassium Replacement) 1 dose .XX ASDIRECTED [facility] Senna/Docusate Sodium (Senna Plus) 1 tab PO BID PRN PRN Reason: Constipation Temazepam (Restoril) 15 mg PO BEDTIME PRN PRN Reason: Sleep Assessment/Plan Comment:: Assessment/Plan: Acute: Polyarthralgia - Seen in ED initially--> was given oral steroid and narcotic pills - Risk Factor: Morbid Obesity with BMI of 48.6 - RF screening negative - Suspect rheumatologic vs autoimmune disease in etiology - No obvious edema, erythema and non tender to palpation on large joints - Could not appreciate grinding - Pain with active movements - CRP is significantly elevated - Check for ESR and Antic-CCP (send out) - R/o mononucleosis - Additional tests: EBV, CMV, Enterovirus, Adenovirus, Alpha virus, Hepatitis Panel, HSV 1 and 2, Varicella, HHV 6, and Parvo B19 virus - Will obtain consent for HIV screening in AM Morbid Obesity - Informed patient excess weight is contributory to her acute illness - Advised LSM - She carries no hx/o valvulopathy; she may benefit with Belviq 10 mg po daily after discharge (hospital don't carry it) - Dietary consult for weight Management New Onset of DM2 - A1C 7.40 - On Metformin 500 mg po BID - Will add Glipizide BID and ISS coverage - Accu-check QID AC and HS - She may benefit with Jardiance and Victoza (Cardiovascular benefit and weight loss) - Screen for Dyslipidemia and Microalbuminemia - She should be on low dose ASA and ACEI Mild Electrolytes Abnormality - Hyponatremia - Na 128 - Unclear at this point; she is not on thiazide - Replete and monitor - Hypokalemia - K 3.1 - Unclear at this point; she is not on loop diuretic and no hx/o uncontrolled hypertension - Replete and monitor Probable Metabolic Syndrome - Abdominal Obesity and DM2; Awaiting Lipid panel Plan: Admit to the floor Resume Home Meds Routine AM Labs Viral Panel and Anti-CCP (patient aware tests may take a while for results to come back) PT/OT consult UDS and UA if not already done AHA and ADA diet Rheumatology referral after discharge SW/CM for d/c planning Additional orders as above Code Status: 1
[2017-11-19] MEDS: Insulin Aspart 100 Units/ML 3 ML Pen SUBCUT SCH (22:28)
[2017-11-19] MEDS: Acetaminophen/HYDROcodone 325-5 MG Tab PO PRN (22:29)
[2017-11-19] MEDS: HYDROmorphone 0.5 MG/0.5 ML SYRINGE IVPUSH PRN (22:30)
[2017-11-19] MEDS: glipiZIDE 5 MG Tab.ER PO SCH (22:33)
[2017-11-20] MEDS: Acetaminophen/HYDROcodone 325-5 MG Tab PO PRN ×4 (04:59→21:47)
[2017-11-20] MEDS: HYDROmorphone 0.5 MG/0.5 ML SYRINGE IVPUSH PRN ×4 (04:59→22:14)
[2017-11-20] MEDS: Insulin Aspart 100 Units/ML 3 ML Pen SUBCUT SCH ×4 (06:54→22:17)
--- NOTE | 2017-11-20 07:02 | CR ---
Chest: Frontal view of the chest was obtained. Comparison: Prior chest x-ray of 10/02/17. Scattered parenchymal densities on prior study show improvement on current exam. Slight persisting density is noted within the left midlung. Lungs otherwise are clear. Heart size and mediastinum are normal. Bony structures are grossly intact. Impression: 1. Chest shows improvement from prior study with mild persisting density within the left midlung. 2. Nothing acute is otherwise seen. Diagnostic code #3
--- NOTE | 2017-11-20 07:18 | PCM.PN ---
- General Info Date of Service: 11/20/17 Admission Dx/Problem (Free Text): Admission Diagnosis/Problem Admission Diagnosis/Problem Hyponatremia Subjective Update: Follow Up Functional Status: Reports: Tolerating Diet, Ambulating, Urinating. Denies: New Symptoms - Review of Systems General: Reports: Weakness, Fatigue, Malaise, Chills. Denies: Fever HEENT: Reports: No Symptoms Pulmonary: Denies: Shortness of Breath Cardiovascular: Denies: Chest Pain, Palpitations, Dyspnea on Exertion, Edema, Lightheadedness Gastrointestinal: Denies: Abdominal Pain, Decreased Appetite, Nausea, Vomiting Genitourinary: Reports: No Symptoms Musculoskeletal: Reports: Neck Pain, Shoulder Pain, Back Pain, Joint Pain. Denies: Joint Swelling Skin: Denies: Cyanosis, Jaundice, Mottled, Pallor, Diaphoresis, Bruising, Pruritis, Rash Neurological: Reports: Weakness. Denies: Confusion, Pre-Existing Deficit, Difficulty Walking, Gait Disturbance Psychiatric: Denies: Depression, Anxiety, Agitation, Hallucinations Systems Review Comment:: No significant overnight or acute issues. She slept pretty good. She feels about the same. Her morning have improved considerably. She is afebrile w/o leukocytosis. - Patient Data Vitals - Most Recent: Last Vital Signs Temp 36.8 C 11/20/17 04:49 Pulse 89 11/20/17 04:49 Resp 20 11/20/17 04:49 BP 110/76 11/20/17 04:49 Pulse Ox 94 L 11/20/17 04:49 Weight - Most Recent: 147.599 kg I&O - Last 24 Hours: Intake & Output 11/19/17 11/20/17 11/20/17 22:59 06:59 14:59 Intake Total 470 Output Total 200 500 Balance -200 -30 Lab Results Last 24 Hours: Laboratory Results - last 24 hr 11/19/17 11/19/17 11/19/17 Range/Units 17:25 17:25 17:25 WBC 12.15 H (3.98-10.04) K/mm3 RBC 4.13 (3.98-5.22) M/mm3 Hgb 11.8 (11.2-15.7) gm/L Hct 35.1 (34.1-44.9) % MCV 85.0 (79.4-94.8) fl MCH 28.6 (25.6-32.2) pg MCHC 33.6 (32.2-35.5) g/dl RDW Std Deviation 43.7 (36.4-46.3) fL Plt Count 133 L (182-369) K/mm3 MPV 11.7 (9.4-12.3) fl Neut % (Auto) (34.0-71.1) % Lymph % (Auto) (19.3-51.7) % Taylor % (Auto) (4.7-12.5) % Eos % (Auto) (0.7-5.8) Baso % (Auto) (0.1-1.2) % Neut # (Auto) (1.56-6.13) K/mm3 Lymph # (Auto) (1.18-3.74) K/mm3 Taylor # (Auto) (0.24-0.36) K/mm3 Eos # (Auto) (0.04-0.36) K/mm3 Baso # (Auto) (0.01-0.08) K/mm3 Neutrophils % (Manual) 86 H (40-60) % Band Neutrophils % 0 (0-10) % Lymphocytes % (Manual) 12 L (20-40) % Atypical Lymphs % 0 % Monocytes % (Manual) 1 L (2-10) % Eosinophils % (Manual) 1 (0.7-5.8) % Basophils % (Manual) 0 L (0.1-1.2) Platelet Estimate Adequate RBC Morph Comment Normal ESR 80 H (0-20) mm/hr Sodium 128 L (136-145) mEq/L Potassium 3.1 L (3.5-5.1) mEq/L Chloride 95 L (98-107) mEq/L Carbon Dioxide 25 (21-32) mEq/L Anion Gap 11.1 (5-15) BUN 13 (7-18) mg/dL Creatinine 0.9 (0.55-1.02) mg/dL Est Cr Clr Drug Dosing 86.84 mL/min Estimated GFR (MDRD) > 60 (>60) mL/min BUN/Creatinine Ratio 14.4 (14-18) Glucose 127 H (74-106) mg/dL POC Glucose (70-105) mg/dL Hemoglobin A1c (4.50-6.20) % Uric Acid (2.6-6.0) mg/dL Calcium 8.7 (8.5-10.1) mg/dL Magnesium 2.0 (1.8-2.4) mg/dl Total Bilirubin 0.9 (0.2-1.0) mg/dL AST 28 (15-37) U/L ALT 29 (14-59) U/L Alkaline Phosphatase 63 (46-116) U/L Creatine Kinase 14 L (26-192) U/L C-Reactive Protein 17.8 H* (<1.0) mg/dL NT-Pro-B Natriuret Pep (0-125) pg/mL Total Protein 7.8 (6.4-8.2) g/dl Albumin 2.3 L (3.4-5.0) g/dl Globulin 5.5 gm/dL Albumin/Globulin Ratio 0.4 L (1-2) TSH 3rd Generation (0.358-3.74) uIU/mL Urine Color (Yellow) Urine Appearance (Clear) Urine pH (5.0-8.0) Ur Specific [place] (1.005-1.030) Urine Protein (Negative) Urine Glucose (UA) (Negative) Urine Ketones (Negative) Urine Occult Blood (Negative) Urine Nitrite (Negative) Urine Bilirubin (Negative) Urine Urobilinogen (0.2-1.0) Ur Leukocyte Esterase (Negative) Urine RBC (0-5) /hpf Urine WBC (0-5) /hpf Ur Epithelial Cells (0-5) /hpf Urine Bacteria (FEW) /hpf Urine Mucus (FEW) /hpf Ur Random Creatinine (30.0-125.0) mg/dL Ur Random Microalbumin (1.3-20.0) mg/L Microalb/Creat Ratio (0-30) mg/g Urine Opiates Screen (NEGATIVE) Ur Buprenorphine Scrn (NEGATIVE) Ur Oxycodone Screen (NEGATIVE) Urine Methadone Screen (NEGATIVE) Ur Propoxyphene Screen (NEGATIVE) Ur Barbiturates Screen (NEGATIVE) Ur Tricyclics Screen (NEGATIVE) Ur Phencyclidine Scrn (NEGATIVE) Ur Amphetamine Screen (NEGATIVE) U Methamphetamines Scrn (NEGATIVE) U Benzodiazepines Scrn (NEGATIVE) U Cocaine Metab Screen (NEGATIVE) U Marijuana (THC) Screen (NEGATIVE) Rheumatoid Factor Scrn (NEGATIVE) Monoscreen (NEGATIVE) 11/19/17 11/19/17 11/19/17 Range/Units 17:25 17:25 17:25 WBC (3.98-10.04) K/mm3 RBC (3.98-5.22) M/mm3 Hgb (11.2-15.7) gm/L Hct (34.1-44.9) % MCV (79.4-94.8) fl MCH (25.6-32.2) pg MCHC (32.2-35.5) g/dl RDW Std Deviation (36.4-46.3) fL Plt Count (182-369) K/mm3 MPV (9.4-12.3) fl Neut % (Auto) (34.0-71.1) % Lymph % (Auto) (19.3-51.7) % Taylor % (Auto) (4.7-12.5) % Eos % (Auto) (0.7-5.8) Baso % (Auto) (0.1-1.2) % Neut # (Auto) (1.56-6.13) K/mm3 Lymph # (Auto) (1.18-3.74) K/mm3 Taylor # (Auto) (0.24-0.36) K/mm3 Eos # (Auto) (0.04-0.36) K/mm3 Baso # (Auto) (0.01-0.08) K/mm3 Neutrophils % (Manual) (40-60) % Band Neutrophils % (0-10) % Lymphocytes % (Manual) (20-40) % Atypical Lymphs % % Monocytes % (Manual) (2-10) % Eosinophils % (Manual) (0.7-5.8) % Basophils % (Manual) (0.1-1.2) Platelet Estimate RBC Morph Comment ESR (0-20) mm/hr Sodium (136-145) mEq/L Potassium (3.5-5.1) mEq/L Chloride (98-107) mEq/L Carbon Dioxide (21-32) mEq/L Anion Gap (5-15) BUN (7-18) mg/dL Creatinine (0.55-1.02) mg/dL Est Cr Clr Drug Dosing mL/min Estimated GFR (MDRD) (>60) mL/min BUN/Creatinine Ratio (14-18) Glucose (74-106) mg/dL POC Glucose (70-105) mg/dL Hemoglobin A1c 7.40 H (4.50-6.20) % Uric Acid (2.6-6.0) mg/dL Calcium (8.5-10.1) mg/dL Magnesium (1.8-2.4) mg/dl Total Bilirubin (0.2-1.0) mg/dL AST (15-37) U/L ALT (14-59) U/L Alkaline Phosphatase (46-116) U/L Creatine Kinase (26-192) U/L C-Reactive Protein (<1.0) mg/dL NT-Pro-B Natriuret Pep (0-125) pg/mL Total Protein (6.4-8.2) g/dl Albumin (3.4-5.0) g/dl Globulin gm/dL Albumin/Globulin Ratio (1-2) TSH 3rd Generation 2.068 (0.358-3.74) uIU/mL Urine Color (Yellow) Urine Appearance (Clear) Urine pH (5.0-8.0) Ur Specific [place] (1.005-1.030) Urine Protein (Negative) Urine Glucose (UA) (Negative) Urine Ketones (Negative) Urine Occult Blood (Negative) Urine Nitrite (Negative) Urine Bilirubin (Negative) Urine Urobilinogen (0.2-1.0) Ur Leukocyte Esterase (Negative) Urine RBC (0-5) /hpf Urine WBC (0-5) /hpf Ur Epithelial Cells (0-5) /hpf Urine Bacteria (FEW) /hpf Urine Mucus (FEW) /hpf Ur Random Creatinine (30.0-125.0) mg/dL Ur Random Microalbumin (1.3-20.0) mg/L Microalb/Creat Ratio (0-30) mg/g Urine Opiates Screen (NEGATIVE) Ur Buprenorphine Scrn (NEGATIVE) Ur Oxycodone Screen (NEGATIVE) Urine Methadone Screen (NEGATIVE) Ur Propoxyphene Screen (NEGATIVE) Ur Barbiturates Screen (NEGATIVE) Ur Tricyclics Screen (NEGATIVE) Ur Phencyclidine Scrn (NEGATIVE) Ur Amphetamine Screen (NEGATIVE) U Methamphetamines Scrn (NEGATIVE) U Benzodiazepines Scrn (NEGATIVE) U Cocaine Metab Screen (NEGATIVE) U Marijuana (THC) Screen (NEGATIVE) Rheumatoid Factor Scrn Negative (NEGATIVE) Monoscreen (NEGATIVE) 11/19/17 11/19/17 11/19/17 Range/Units 17:25 17:25 17:25 WBC (3.98-10.04) K/mm3 RBC (3.98-5.22) M/mm3 Hgb (11.2-15.7) gm/L Hct (34.1-44.9) % MCV (79.4-94.8) fl MCH (25.6-32.2) pg MCHC (32.2-35.5) g/dl RDW Std Deviation (36.4-46.3) fL Plt Count (182-369) K/mm3 MPV (9.4-12.3) fl Neut % (Auto) (34.0-71.1) % Lymph % (Auto) (19.3-51.7) % Taylor % (Auto) (4.7-12.5) % Eos % (Auto) (0.7-5.8) Baso % (Auto) (0.1-1.2) % Neut # (Auto) (1.56-6.13) K/mm3 Lymph # (Auto) (1.18-3.74) K/mm3 Taylor # (Auto) (0.24-0.36) K/mm3 Eos # (Auto) (0.04-0.36) K/mm3 Baso # (Auto) (0.01-0.08) K/mm3 Neutrophils % (Manual) (40-60) % Band Neutrophils % (0-10) % Lymphocytes % (Manual) (20-40) % Atypical Lymphs % % Monocytes % (Manual) (2-10) % Eosinophils % (Manual) (0.7-5.8) % Basophils % (Manual) (0.1-1.2) Platelet Estimate RBC Morph Comment ESR (0-20) mm/hr Sodium (136-145) mEq/L Potassium (3.5-5.1) mEq/L Chloride (98-107) mEq/L Carbon Dioxide (21-32) mEq/L Anion Gap (5-15) BUN (7-18) mg/dL Creatinine (0.55-1.02) mg/dL Est Cr Clr Drug Dosing mL/min Estimated GFR (MDRD) (>60) mL/min BUN/Creatinine Ratio (14-18) Glucose (74-106) mg/dL POC Glucose (70-105) mg/dL Hemoglobin A1c (4.50-6.20) % Uric Acid 4.9 (2.6-6.0) mg/dL Calcium (8.5-10.1) mg/dL Magnesium (1.8-2.4) mg/dl Total Bilirubin (0.2-1.0) mg/dL AST (15-37) U/L ALT (14-59) U/L Alkaline Phosphatase (46-116) U/L Creatine Kinase (26-192) U/L C-Reactive Protein (<1.0) mg/dL NT-Pro-B Natriuret Pep 113 (0-125) pg/mL Total Protein (6.4-8.2) g/dl Albumin (3.4-5.0) g/dl Globulin gm/dL Albumin/Globulin Ratio (1-2) TSH 3rd Generation (0.358-3.74) uIU/mL Urine Color (Yellow) Urine Appearance (Clear) Urine pH (5.0-8.0) Ur Specific [place] (1.005-1.030) Urine Protein (Negative) Urine Glucose (UA) (Negative) Urine Ketones (Negative) Urine Occult Blood (Negative) Urine Nitrite (Negative) Urine Bilirubin (Negative) Urine Urobilinogen (0.2-1.0) Ur Leukocyte Esterase (Negative) Urine RBC (0-5) /hpf Urine WBC (0-5) /hpf Ur Epithelial Cells (0-5) /hpf Urine Bacteria (FEW) /hpf Urine Mucus (FEW) /hpf Ur Random Creatinine (30.0-125.0) mg/dL Ur Random Microalbumin (1.3-20.0) mg/L Microalb/Creat Ratio (0-30) mg/g Urine Opiates Screen (NEGATIVE) Ur Buprenorphine Scrn (NEGATIVE) Ur Oxycodone Screen (NEGATIVE) Urine Methadone Screen (NEGATIVE) Ur Propoxyphene Screen (NEGATIVE) Ur Barbiturates Screen (NEGATIVE) Ur Tricyclics Screen (NEGATIVE) Ur Phencyclidine Scrn (NEGATIVE) Ur Amphetamine Screen (NEGATIVE) U Methamphetamines Scrn (NEGATIVE) U Benzodiazepines Scrn (NEGATIVE) U Cocaine Metab Screen (NEGATIVE) U Marijuana (THC) Screen (NEGATIVE) Rheumatoid Factor Scrn (NEGATIVE) Monoscreen Negative (NEGATIVE) 11/19/17 11/19/17 11/19/17 Range/Units 18:39 18:39 20:48 WBC (3.98-10.04) K/mm3 RBC (3.98-5.22) M/mm3 Hgb (11.2-15.7) gm/L Hct (34.1-44.9) % MCV (79.4-94.8) fl MCH (25.6-32.2) pg MCHC (32.2-35.5) g/dl RDW Std Deviation (36.4-46.3) fL Plt Count (182-369) K/mm3 MPV (9.4-12.3) fl Neut % (Auto) (34.0-71.1) % Lymph % (Auto) (19.3-51.7) % Taylor % (Auto) (4.7-12.5) % Eos % (Auto) (0.7-5.8) Baso % (Auto) (0.1-1.2) % Neut # (Auto) (1.56-6.13) K/mm3 Lymph # (Auto) (1.18-3.74) K/mm3 Taylor # (Auto) (0.24-0.36) K/mm3 Eos # (Auto) (0.04-0.36) K/mm3 Baso # (Auto) (0.01-0.08) K/mm3 Neutrophils % (Manual) (40-60) % Band Neutrophils % (0-10) % Lymphocytes % (Manual) (20-40) % Atypical Lymphs % % Monocytes % (Manual) (2-10) % Eosinophils % (Manual) (0.7-5.8) % Basophils % (Manual) (0.1-1.2) Platelet Estimate RBC Morph Comment ESR (0-20) mm/hr Sodium (136-145) mEq/L Potassium (3.5-5.1) mEq/L Chloride (98-107) mEq/L Carbon Dioxide (21-32) mEq/L Anion Gap (5-15) BUN (7-18) mg/dL Creatinine (0.55-1.02) mg/dL Est Cr Clr Drug Dosing mL/min Estimated GFR (MDRD) (>60) mL/min BUN/Creatinine Ratio (14-18) Glucose (74-106) mg/dL POC Glucose (70-105) mg/dL Hemoglobin A1c (4.50-6.20) % Uric Acid (2.6-6.0) mg/dL Calcium (8.5-10.1) mg/dL Magnesium (1.8-2.4) mg/dl Total Bilirubin (0.2-1.0) mg/dL AST (15-37) U/L ALT (14-59) U/L Alkaline Phosphatase (46-116) U/L Creatine Kinase (26-192) U/L C-Reactive Protein (<1.0) mg/dL NT-Pro-B Natriuret Pep (0-125) pg/mL Total Protein (6.4-8.2) g/dl Albumin (3.4-5.0) g/dl Globulin gm/dL Albumin/Globulin Ratio (1-2) TSH 3rd Generation (0.358-3.74) uIU/mL Urine Color Yellow (Yellow) Urine Appearance Slt cloudy H (Clear) Urine pH 6.0 (5.0-8.0) Ur Specific [place] 1.010 (1.005-1.030) Urine Protein 1+ H (Negative) Urine Glucose (UA) Negative (Negative) Urine Ketones Trace H (Negative) Urine Occult Blood 3+ H (Negative) Urine Nitrite Negative (Negative) Urine Bilirubin 1+ H (Negative) Urine Urobilinogen 4.0 H (0.2-1.0) Ur Leukocyte Esterase 1+ H (Negative) Urine RBC 5-10 H (0-5) /hpf Urine WBC 10-20 H (0-5) /hpf Ur Epithelial Cells 10-20 H (0-5) /hpf Urine Bacteria Few (FEW) /hpf Urine Mucus Not seen (FEW) /hpf Ur Random Creatinine 120.5 (30.0-125.0) mg/dL Ur Random Microalbumin 19.2 (1.3-20.0) mg/L Microalb/Creat Ratio 15.9 (0-30) mg/g Urine Opiates Screen Negative (NEGATIVE) Ur Buprenorphine Scrn Negative (NEGATIVE) Ur Oxycodone Screen Presumptive positive H (NEGATIVE) Urine Methadone Screen Negative (NEGATIVE) Ur Propoxyphene Screen Negative (NEGATIVE) Ur Barbiturates Screen Negative (NEGATIVE) Ur Tricyclics Screen Negative (NEGATIVE) Ur Phencyclidine Scrn Negative (NEGATIVE) Ur Amphetamine Screen Negative (NEGATIVE) U Methamphetamines Scrn Negative (NEGATIVE) U Benzodiazepines Scrn Negative (NEGATIVE) U Cocaine Metab Screen Negative (NEGATIVE) U Marijuana (THC) Screen Presumptive positive H (NEGATIVE) Rheumatoid Factor Scrn (NEGATIVE) Monoscreen (NEGATIVE) 11/19/17 11/20/17 11/20/17 Range/Units 21:47 06:25 06:48 WBC 9.82 (3.98-10.04) K/mm3 RBC 3.91 L (3.98-5.22) M/mm3 Hgb 11.1 L (11.2-15.7) gm/L Hct 33.3 L (34.1-44.9) % MCV 85.2 (79.4-94.8) fl MCH 28.4 (25.6-32.2) pg MCHC 33.3 (32.2-35.5) g/dl RDW Std Deviation 44.4 (36.4-46.3) fL Plt Count 158 L (182-369) K/mm3 MPV 11.0 (9.4-12.3) fl Neut % (Auto) 77.8 H (34.0-71.1) % Lymph % (Auto) 10.5 L (19.3-51.7) % Taylor % (Auto) 9.4 (4.7-12.5) % Eos % (Auto) 1.7 (0.7-5.8) Baso % (Auto) 0.2 (0.1-1.2) % Neut # (Auto) 7.64 H (1.56-6.13) K/mm3 Lymph # (Auto) 1.03 L (1.18-3.74) K/mm3 Taylor # (Auto) 0.92 H (0.24-0.36) K/mm3 Eos # (Auto) 0.17 (0.04-0.36) K/mm3 Baso # (Auto) 0.02 (0.01-0.08) K/mm3 Neutrophils % (Manual) (40-60) % Band Neutrophils % (0-10) % Lymphocytes % (Manual) (20-40) % Atypical Lymphs % % Monocytes % (Manual) (2-10) % Eosinophils % (Manual) (0.7-5.8) % Basophils % (Manual) (0.1-1.2) Platelet Estimate RBC Morph Comment ESR (0-20) mm/hr Sodium (136-145) mEq/L Potassium (3.5-5.1) mEq/L Chloride (98-107) mEq/L Carbon Dioxide (21-32) mEq/L Anion Gap (5-15) BUN (7-18) mg/dL Creatinine (0.55-1.02) mg/dL Est Cr Clr Drug Dosing mL/min Estimated GFR (MDRD) (>60) mL/min BUN/Creatinine Ratio (14-18) Glucose (74-106) mg/dL POC Glucose 156 H 127 H (70-105) mg/dL Hemoglobin A1c (4.50-6.20) % Uric Acid (2.6-6.0) mg/dL Calcium (8.5-10.1) mg/dL Magnesium (1.8-2.4) mg/dl Total Bilirubin (0.2-1.0) mg/dL AST (15-37) U/L ALT (14-59) U/L Alkaline Phosphatase (46-116) U/L Creatine Kinase (26-192) U/L C-Reactive Protein (<1.0) mg/dL NT-Pro-B Natriuret Pep (0-125) pg/mL Total Protein (6.4-8.2) g/dl Albumin (3.4-5.0) g/dl Globulin gm/dL Albumin/Globulin Ratio (1-2) TSH 3rd Generation (0.358-3.74) uIU/mL Urine Color (Yellow) Urine Appearance (Clear) Urine pH (5.0-8.0) Ur Specific [place] (1.005-1.030) Urine Protein (Negative) Urine Glucose (UA) (Negative) Urine Ketones (Negative) Urine Occult Blood (Negative) Urine Nitrite (Negative) Urine Bilirubin (Negative) Urine Urobilinogen (0.2-1.0) Ur Leukocyte Esterase (Negative) Urine RBC (0-5) /hpf Urine WBC (0-5) /hpf Ur Epithelial Cells (0-5) /hpf Urine Bacteria (FEW) /hpf Urine Mucus (FEW) /hpf Ur Random Creatinine (30.0-125.0) mg/dL Ur Random Microalbumin (1.3-20.0) mg/L Microalb/Creat Ratio (0-30) mg/g Urine Opiates Screen (NEGATIVE) Ur Buprenorphine Scrn (NEGATIVE) Ur Oxycodone Screen (NEGATIVE) Urine Methadone Screen (NEGATIVE) Ur Propoxyphene Screen (NEGATIVE) Ur Barbiturates Screen (NEGATIVE) Ur Tricyclics Screen (NEGATIVE) Ur Phencyclidine Scrn (NEGATIVE) Ur Amphetamine Screen (NEGATIVE) U Methamphetamines Scrn (NEGATIVE) U Benzodiazepines Scrn (NEGATIVE) U Cocaine Metab Screen (NEGATIVE) U Marijuana (THC) Screen (NEGATIVE) Rheumatoid Factor Scrn (NEGATIVE) Monoscreen (NEGATIVE) Gurpreet Results Last 24 Hours: Microbiology 11/19/17 17:30 Anaerobic Blood Culture - Final Blood - Venous - Lab Draw 11/19/17 16:25 Influenza Type A Antigen Screen - Final Nasal, Unspecified NEGATIVE INFLUENZA A VIRUS AG Influenza Type B Antigen Screen - Final NEGATIVE INFLUENZA B VIRUS AG Med Orders - Current: Current Medications Acetaminophen (Tylenol) 650 mg PO Q4H PRN PRN Reason: Pain (Mild 1-3)/fever Hydrocodone Bitart/Acetaminophen ([place] 325-5 Mg) 1 tab PO Q4H PRN PRN Reason: Pain (moderate 4-6) Last Admin: 11/20/17 04:59 Dose: 1 tab Albuterol/Ipratropium (Duoneb 3.0-0.5 Mg/3 Ml) 3 ml NEB Q4H PRN PRN Reason: Shortness Of Breath/wheezing Aspirin (Aspirin) 81 mg PO DAILY [facility] Bisacodyl (Dulcolax) 5 mg PO DAILY PRN PRN Reason: Constipation Dextrose/Water (Dextrose 50% In Water) 50 ml IVPUSH ASDIRECTED PRN PRN Reason: Hypoglycemia Docusate Sodium (Colace) 100 mg PO BID PRN PRN Reason: Constipation Glipizide (Glucotrol Xl) 5 mg PO BID [facility] Last Admin: 11/19/17 22:33 Dose: 5 mg Hydralazine HCl (Apresoline) 20 mg IVPUSH Q4H PRN PRN Reason: Hypertension Hydromorphone HCl (Dilaudid) 0.25 mg IVPUSH Q2H PRN PRN Reason: Pain (severe 7-10) Last Admin: 11/20/17 04:59 Dose: 0.25 mg Promethazine HCl 12.5 mg/ (Sodium Chloride) 50.5 mls @ 100 mls/hr IV Q6H PRN PRN Reason: Nausea/Vomiting Insulin Aspart (Novolog) 0 unit SUBCUT QIDACANDBED [facility]; Protocol Last Admin: 11/20/17 06:54 Dose: Not Given Lisinopril (Prinivil) 10 mg PO DAILY [facility] Lorazepam (Ativan) 2 mg IVPUSH Q4H PRN PRN Reason: Seizures Lorazepam (Ativan) 1 mg IV Q6H PRN PRN Reason: Anxiety Magnesium Sulfate (Pharmacy To Dose - Magnesium Replacement) 0 dose .XX ASDIRECTED PRN PRN Reason: RX TO WATCH MAG LEVELS Metformin HCl (Glucophage) 500 mg PO DAILY [facility] Metoprolol Tartrate (Lopressor) 5 mg IVPUSH Q4H PRN PRN Reason: Tachycardia Omeprazole (Omeprazole) 20 mg PO DAILY [facility] Ondansetron HCl (Zofran Odt) 4 mg PO Q6H PRN PRN Reason: Nausea\vomiting Ondansetron HCl (Zofran) 4 mg IV Q6H PRN PRN Reason: Nausea/Vomiting Oral Electrolytes (Thermotabs) 2 each PO BID [facility] Polyethylene Glycol (Miralax) 17 gm PO DAILY PRN PRN Reason: Constipation Potassium Chloride (Klor-Con M20) 20 meq PO DAILY [facility] Potassium Chloride (Pharmacy To Dose - Potassium Replacement) 0 dose .XX ASDIRECTED PRN PRN Reason: RX TO WATCH Senna/Docusate Sodium (Senna Plus) 1 tab PO BID PRN PRN Reason: Constipation Temazepam (Restoril) 15 mg PO BEDTIME PRN PRN Reason: Sleep Discontinued Medications Hydromorphone HCl (Dilaudid) 1 mg IVPUSH ONETIME ONE Stop: 11/19/17 16:45 Last Admin: 11/19/17 17:25 Dose: Not Given Hydromorphone HCl (Dilaudid) 1 mg IM ONETIME ONE Stop: 11/19/17 17:07 Last Admin: 11/19/17 17:26 Dose: Not Given Hydromorphone HCl (Dilaudid) 1 mg IM ONETIME ONE Stop: 11/19/17 17:11 Last Admin: 11/19/17 17:21 Dose: 1 mg Sodium Chloride (Normal Saline) 1,000 mls @ 500 mls/hr IV ASDIRECTED NICOLE Sodium Chloride (Normal Saline) 1,000 mls @ 999 mls/hr IV ASDIRECTED NICOLE Last Admin: 11/19/17 18:41 Dose: 999 mls/hr Potassium Chloride 10 meq/ (Premix) 100 mls @ 100 mls/hr IV ASDIRECTED STA Stop: 11/19/17 19:31 Last Admin: 11/19/17 18:41 Dose: 100 mls/hr Potassium Chloride 10 meq/ (Premix) 100 mls @ 100 mls/hr IV ONETIME ONE Stop: 11/19/17 19:32 Last Admin: 11/19/17 21:49 Dose: Not Given Potassium Chloride 10 meq/ (Premix) 100 mls @ 100 mls/hr IV Q1H NICOLE Stop: 11/20/17 01:29 Last Admin: 11/19/17 21:50 Dose: Not Given Ketorolac Tromethamine (Toradol) 30 mg IVPUSH ONETIME [facility] Ketorolac Tromethamine (Toradol) 30 mg IM ONETIME ONE Stop: 11/19/17 17:08 Last Admin: 11/19/17 17:20 Dose: 30 mg Metoclopramide HCl (Reglan) 10 mg IVPUSH ONETIME ONE Stop: 11/19/17 16:45 Last Admin: 11/19/17 17:26 Dose: Not Given Metoclopramide HCl (Reglan) 10 mg IM ONETIME ONE Stop: 11/19/17 17:08 Last Admin: 11/19/17 17:19 Dose: 10 mg Pneumococcal Polyvalent Vaccine (Pneumovax 23) 0.5 ml IM .ONCE ONE Stop: 11/19/17 21:18 Potassium Chloride (Klor-Con M20) 60 meq PO ONETIME ONE Stop: 11/19/17 21:40 Last Admin: 11/19/17 22:27 Dose: 60 meq - Exam General: Alert, Oriented, Cooperative, No Acute Distress HEENT: Pupils Equal, Pupils Reactive, EOMI, Mucous Membr. Moist/[place], Other ( Morbidly Obese) Neck: Supple, Trachea Midline, No JVD, No Thyromegaly, Other (short and thick neck) Lungs: Clear to Auscultation, Normal Respiratory Effort Cardiovascular: Regular Rate, Regular Rhythm GI/Abdominal Exam: Normal Bowel Sounds, Soft, No Distention, No Abnormal Bruit (Female) Exam: Deferred Back Exam: Normal Inspection, Decreased Range of Motion Extremities: Normal Inspection, Normal Range of Motion, Non-Tender, No Pedal Edema, Normal Capillary Refill, Other (tender on palpation on multiple large joints). No: Joint Swelling Peripheral Pulses: 3+: Posterior Tibial (L), Posterior Tibial (R), Dorsalis Pedis (L), Dorsalis Pedis (R) Skin: Warm, Dry, Intact Neurological: No New Focal Deficit Psy/Mental Status: Alert, Normal Affect, Normal Mood - Problem List Review Problem List Initiated/Reviewed/Updated: Yes - My Orders Last 24 Hours: My Active Orders 11/19/17 18:39 DRUG SCREEN, URINE [URCHEM] Stat URIC ACID, URINE Routine 11/19/17 20:05 Ondansetron [Zofran ODT] 4 mg PO Q6H PRN 11/19/17 20:07 LORazepam [Ativan] 2 mg IVPUSH Q4H PRN Metoprolol Tartrate [Lopressor] 5 mg IVPUSH Q4H PRN hydrALAZINE [Apresoline] 20 mg IVPUSH Q4H PRN 11/19/17 20:08 Ambulate [RC] ASDIRECTED Oxygen Therapy [RC] PRN Up ad Shelly [RC] ASDIRECTED VTE/DVT Education [RC] QSHIFT Vital Signs [RC] Q4HR Acetaminophen [Tylenol] 650 mg PO Q4H PRN Acetaminophen/HYDROcodone [Butler 325-5 MG] 1 tab PO Q4H PRN Albuterol/Ipratropium [DuoNeb 3.0-0.5 MG/3 ML] 3 ml NEB Q4H PRN Bisacodyl [Dulcolax] 5 mg PO DAILY PRN Docusate Sodium [Colace] 100 mg PO BID PRN Docusate Sodium/Sennosides [Senna Plus] 1 tab PO BID PRN HYDROmorphone [Dilaudid] 0.25 mg IVPUSH Q2H PRN LORazepam [Ativan] 1 mg IV Q6H PRN Ondansetron [Zofran] 4 mg IV Q6H PRN Polyethylene Glycol 3350 [MiraLAX] 17 gm PO DAILY PRN Promethazine [Phenergan] 12.5 mg Sodium Chloride 0.9% [Normal Saline] 50 ml IV Q6H Temazepam [Restoril] 15 mg PO BEDTIME PRN Resuscitation Status Routine 11/19/17 20:12 RT Aerosol Therapy [RC] ASDIRECTED Consult to Case Management [CONS] Routine Consult to Animal Anatomy Teacher [CONS] Routine OT Evaluation and Treatment [CONS] Routine PT Evaluation and Treatment [CONS] Routine 11/19/17 20:15 Magnesium Rep Pharmacy to Dose [Pharmacy to Dose - Magnesium Replacement] 0 dose .XX ASDIRECTED PRN Potassium Rep Pharmacy to Dose [Pharmacy to Dose - Potassium Replacement] 0 dose .XX ASDIRECTED PRN 11/19/17 20:26 Admission Status [Patient Status] [ADT] Routine 11/19/17 20:40 Blood Glucose Check, Bedside [RC] QIDACANDBED Dextrose 50% in Water 50 ml IVPUSH ASDIRECTED PRN 11/19/17 20:41 Consult to Dietary [Consult to Duty Engineer] [CONS] Routine 11/19/17 20:48 MICROALBUMIN/CREAT RATIO,URINE [URCHEM] Routine 11/19/17 21:00 glipiZIDE [Glucotrol XL] 5 mg PO BID 11/19/17 22:00 Insulin Aspart [NovoLOG] See Protocol SUBCUT QIDACANDBED 11/19/17 23:39 CMV AB, IGG AND IGM [REF] Stat ENTEROVIRUS PCR [MREF] Stat HEPATITIS PANEL, ACUTE [REF] Stat PARVOVIRUS B19 IGG AND IGM [REF] Stat 11/19/17 23:40 HERPES SIMPLEX VIR 1,2 IGG/IGM [REF] Stat HERPES/VARICELLA [MREF] Stat HERPESVIRUS 6 DNA, (RT-PCR) [REF] Stat 11/19/17 23:41 FREDI TAMAYO VIRUS AB PANEL [REF] Stat 11/20/17 00:07 MISC TEST Stat MISC TEST Urgent 11/20/17 06:25 BASIC METABOLIC PANEL,BMP [CHEM] AM C-REACTIVE PROTEIN [CHEM] AM CYCLICCITRUPEPAB,IGG [REF] Stat LIPID PANEL [CHEM] Routine MAGNESIUM [CHEM] AM SEDIMENTATION RATE AUTO [HEME] AM 11/20/17 09:00 Aspirin 81 mg PO DAILY Lisinopril [Prinivil] 10 mg PO DAILY Omeprazole 20 mg PO DAILY Potassium Chloride [Klor-Con M20] 20 meq PO DAILY Potassium Chloride/NaCl [Thermotabs] 2 each PO BID metFORMIN [Glucophage] 500 mg PO DAILY 11/20/17 Breakfast ADA Diabetic [[employer] Diet] [DIET] Heart Healthy Diet [DIET] 11/21/17 05:11 BASIC METABOLIC PANEL,BMP [CHEM] AM CBC WITH AUTO DIFF [HEME] AM MAGNESIUM [CHEM] AM 11/22/17 05:11 BASIC METABOLIC PANEL,BMP [CHEM] AM CBC WITH AUTO DIFF [HEME] AM MAGNESIUM [CHEM] AM 11/23/17 05:11 BASIC METABOLIC PANEL,BMP [CHEM] AM CBC WITH AUTO DIFF [HEME] AM MAGNESIUM [CHEM] AM 11/24/17 05:11 BASIC METABOLIC PANEL,BMP [CHEM] AM CBC WITH AUTO DIFF [HEME] AM MAGNESIUM [CHEM] AM - Plan Plan:: Assessment/Plan: Acute: Polyarthralgia - Seen in ED initially--> was given oral steroid and narcotic pills - Risk Factor: Morbid Obesity with BMI of 48.6 - RF and Taylor screening negative - Suspect rheumatologic vs autoimmune disease in etiology - No obvious edema, erythema and non tender to palpation on large joints - Could not appreciate grinding - Pain with active movements - CRP is significantly elevated at 17.8 --> now 15.9; ESR 80--> now 70 - Antic-CCP (send out), EBV, CMV, Enterovirus, Adenovirus, Alphavirus, Hepatitis Panel, HSV 1 and 2, Varicella, HHV 6, and Parvo B19 virus - all pending (patient aware this may take sometime -could be over week before we get the results back) - Also added tick born disease work up as well - Refused HIV screening this AM; she states she was tested Thursday in [facility] pending result - Prednisone 60 m gpo daily first dose today Morbid Obesity - Informed patient excess weight is contributory to her acute illness - Advised LSM - She carries no hx/o valvulopathy; she may benefit with Belviq 10 mg po daily after discharge (hospital don't carry it) - Dietary consult for weight Management New Onset of DM2 - BS is controlled - A1C 7.40 - Continue Metformin 500 mg po BID, Glipizide 5 mg po BID and ISS coverage - Accu-check QID AC and HS - She may benefit with Jardiance and Victoza (Cardiovascular benefit and weight loss) - Lipid panel shows significantly low HDL level but Microalbuminemia is negative - Continue low dose ASA and ACEI Dyslipidemia - HLD is 16 - At this point, I would recommend LSM - Dietary consult for proper diet Metabolic Syndrome - Abdominal Obesity, DM2; Low HDL level - Goal: LSM to lose weight Hyponatremia, Improved - Na 128 --> 132 - Unclear at this point; she is not on thiazide - Replete and monitor Substance Abuse - UDs is pos for THC and Oxy - Counseled on elicit drug use; also discouraged combo use of narcotics and marijuana for pain control Resolved: S/p Hypokalemia - K 3.1 --> 3.9 - Unclear at this point; she is not on loop diuretic and no hx/o uncontrolled hypertension - Replete and monitor Plan: She is clinically stable Start oral steroid for anti-inflammatory Routine AM Labs Tick Born Disease/Viral Panel and and Anti-CCP- all pending (patient aware tests may take a while for results to come back) PT/OT consult Continue AHA and ADA diet Will obtain charts from [facility] Rheumatology referral after discharge SW/CM for d/c planning Additional orders as above Code Status: 1
[2017-11-20] MEDS: Potassium Chloride/Sodium Chloride Tab PO SCH ×2 (08:22→21:46)
[2017-11-20] MEDS: Aspirin 81 MG Tab.Chew PO SCH (08:23)
[2017-11-20] MEDS: glipiZIDE 5 MG Tab.ER PO SCH ×2 (08:24→21:46)
[2017-11-20] MEDS ORDERED: predniSONE 20 MG Tab PO ONE (08:24)
[2017-11-20] MEDS: metFORMIN 500 MG Tab PO SCH (08:25)
[2017-11-20] MEDS: Lisinopril 10 MG Tab PO SCH (08:25)
[2017-11-20] MEDS: Potassium Chloride 20 MEQ Tab.ER PO SCH (08:27)
[2017-11-20] MEDS: Pantoprazole 40 MG Tab.CR PO SCH (08:30)
[2017-11-20] MEDS ORDERED: Omeprazole 20 MG Cap.CR PO SCH (09:00)
[2017-11-21] MEDS: HYDROmorphone 0.5 MG/0.5 ML SYRINGE IVPUSH PRN ×4 (02:57→18:55)
[2017-11-21] MEDS: Acetaminophen/HYDROcodone 325-5 MG Tab PO PRN ×3 (05:26→18:58)
[2017-11-21] MEDS: Pantoprazole 40 MG Tab.CR PO SCH (06:43)
[2017-11-21] MEDS: predniSONE 20 MG Tab PO SCH (06:43)
[2017-11-21] MEDS: Insulin Aspart 100 Units/ML 3 ML Pen SUBCUT SCH ×4 (08:24→21:10)
[2017-11-21] MEDS: metFORMIN 500 MG Tab PO SCH (08:44)
[2017-11-21] MEDS: Potassium Chloride/Sodium Chloride Tab PO SCH ×2 (08:44→21:03)
[2017-11-21] MEDS: Lisinopril 10 MG Tab PO SCH (08:44)
[2017-11-21] MEDS: Aspirin 81 MG Tab.Chew PO SCH (08:44)
[2017-11-21] MEDS: glipiZIDE 5 MG Tab.ER PO SCH ×2 (08:44→21:04)
[2017-11-21] MEDS: Potassium Chloride 20 MEQ Tab.ER PO SCH ×3 (08:44→14:35)
--- NOTE | 2017-11-21 09:12 | PCM.PN ---
- General Info Date of Service: 11/21/17 Admission Dx/Problem (Free Text): Admission Diagnosis/Problem Admission Diagnosis/Problem Hyponatremia Subjective Update: Follow Up Functional Status: Reports: Tolerating Diet, Urinating. Denies: Pain Controlled , Ambulating Pain Score: 7 - Review of Systems General: Reports: Weakness, Malaise. Denies: Fever, Fatigue, Chills HEENT: Reports: No Symptoms Pulmonary: Denies: Shortness of Breath Cardiovascular: Denies: Chest Pain Gastrointestinal: Denies: Abdominal Pain, Nausea, Vomiting Genitourinary: Reports: No Symptoms Musculoskeletal: Reports: No Symptoms Skin: Denies: Cyanosis, Mottled, Pallor, Diaphoresis, Bruising, Pruritis, Rash Neurological: Reports: Difficulty Walking, Gait Disturbance. Denies: Confusion , Weakness Psychiatric: Denies: Depression, Anxiety, Agitation, Hallucinations Systems Review Comment:: No significant overnight issues. She slept okay. She is in pain with a scale of 7/10 this morning. She does not look ill at bedside but weak. She is still report having chills. However she remains afebrile but w/ mild leukocytosis. Her CRP is down to 10 but her blood cultures came back pos 3/4. Her UA is pos for GNR but w/o any complaints. - Patient Data Vitals - Most Recent: Last Vital Signs Temp 36.5 C 11/21/17 04:18 Pulse 102 H 11/21/17 04:18 Resp 16 11/21/17 04:18 BP 118/56 L 11/21/17 04:18 Pulse Ox 96 11/21/17 04:18 Weight - Most Recent: 146.329 kg I&O - Last 24 Hours: Intake & Output 11/20/17 11/21/17 11/21/17 22:59 06:59 14:59 Intake Total 1600 500 Output Total 750 Balance 1600 -250 Lab Results Last 24 Hours: Laboratory Results - last 24 hr 11/20/17 11/20/17 11/20/17 Range/Units 06:25 11:40 17:10 WBC (3.98-10.04) K/mm3 RBC (3.98-5.22) M/mm3 Hgb (11.2-15.7) gm/L Hct (34.1-44.9) % MCV (79.4-94.8) fl MCH (25.6-32.2) pg MCHC (32.2-35.5) g/dl RDW Std Deviation (36.4-46.3) fL Plt Count (182-369) K/mm3 MPV (9.4-12.3) fl Neut % (Auto) (34.0-71.1) % Lymph % (Auto) (19.3-51.7) % Terrell % (Auto) (4.7-12.5) % Eos % (Auto) (0.7-5.8) Baso % (Auto) (0.1-1.2) % Neut # (Auto) (1.56-6.13) K/mm3 Lymph # (Auto) (1.18-3.74) K/mm3 Terrell # (Auto) (0.24-0.36) K/mm3 Eos # (Auto) (0.04-0.36) K/mm3 Baso # (Auto) (0.01-0.08) K/mm3 Manual Slide Review Sodium (136-145) mEq/L Potassium (3.5-5.1) mEq/L Chloride (98-107) mEq/L Carbon Dioxide (21-32) mEq/L Anion Gap (5-15) BUN (7-18) mg/dL Creatinine (0.55-1.02) mg/dL Est Cr Clr Drug Dosing mL/min Estimated GFR (MDRD) (>60) mL/min BUN/Creatinine Ratio (14-18) Glucose (74-106) mg/dL POC Glucose 222 H 194 H (70-105) mg/dL Calcium (8.5-10.1) mg/dL Magnesium (1.8-2.4) mg/dl C-Reactive Protein (<1.0) mg/dL HCG, Qual Negative (NEGATIVE) 11/20/17 11/21/17 11/21/17 Range/Units 21:51 06:43 06:43 WBC 11.42 H (3.98-10.04) K/mm3 RBC 4.00 (3.98-5.22) M/mm3 Hgb 11.5 (11.2-15.7) gm/L Hct 34.2 (34.1-44.9) % MCV 85.5 (79.4-94.8) fl MCH 28.8 (25.6-32.2) pg MCHC 33.6 (32.2-35.5) g/dl RDW Std Deviation 44.7 (36.4-46.3) fL Plt Count 201 (182-369) K/mm3 MPV 10.4 (9.4-12.3) fl Neut % (Auto) 84.5 H (34.0-71.1) % Lymph % (Auto) 8.4 L (19.3-51.7) % Terrell % (Auto) 5.9 (4.7-12.5) % Eos % (Auto) 0.2 L (0.7-5.8) Baso % (Auto) 0.1 (0.1-1.2) % Neut # (Auto) 9.66 H (1.56-6.13) K/mm3 Lymph # (Auto) 0.96 L (1.18-3.74) K/mm3 Terrell # (Auto) 0.67 H (0.24-0.36) K/mm3 Eos # (Auto) 0.02 L (0.04-0.36) K/mm3 Baso # (Auto) 0.01 (0.01-0.08) K/mm3 Manual Slide Review Normal smear Sodium 133 L (136-145) mEq/L Potassium 3.4 L (3.5-5.1) mEq/L Chloride 102 (98-107) mEq/L Carbon Dioxide 22 (21-32) mEq/L Anion Gap 12.4 (5-15) BUN 10 (7-18) mg/dL Creatinine 0.8 (0.55-1.02) mg/dL Est Cr Clr Drug Dosing 97.69 mL/min Estimated GFR (MDRD) > 60 (>60) mL/min BUN/Creatinine Ratio 12.5 L (14-18) Glucose 112 H (74-106) mg/dL POC Glucose 184 H (70-105) mg/dL Calcium 8.5 (8.5-10.1) mg/dL Magnesium 1.4 L (1.8-2.4) mg/dl C-Reactive Protein (<1.0) mg/dL HCG, Qual (NEGATIVE) 11/21/17 11/21/17 Range/Units 06:43 06:45 WBC (3.98-10.04) K/mm3 RBC (3.98-5.22) M/mm3 Hgb (11.2-15.7) gm/L Hct (34.1-44.9) % MCV (79.4-94.8) fl MCH (25.6-32.2) pg MCHC (32.2-35.5) g/dl RDW Std Deviation (36.4-46.3) fL Plt Count (182-369) K/mm3 MPV (9.4-12.3) fl Neut % (Auto) (34.0-71.1) % Lymph % (Auto) (19.3-51.7) % Terrell % (Auto) (4.7-12.5) % Eos % (Auto) (0.7-5.8) Baso % (Auto) (0.1-1.2) % Neut # (Auto) (1.56-6.13) K/mm3 Lymph # (Auto) (1.18-3.74) K/mm3 Terrell # (Auto) (0.24-0.36) K/mm3 Eos # (Auto) (0.04-0.36) K/mm3 Baso # (Auto) (0.01-0.08) K/mm3 Manual Slide Review Sodium (136-145) mEq/L Potassium (3.5-5.1) mEq/L Chloride (98-107) mEq/L Carbon Dioxide (21-32) mEq/L Anion Gap (5-15) BUN (7-18) mg/dL Creatinine (0.55-1.02) mg/dL Est Cr Clr Drug Dosing mL/min Estimated GFR (MDRD) (>60) mL/min BUN/Creatinine Ratio (14-18) Glucose (74-106) mg/dL POC Glucose 100 (70-105) mg/dL Calcium (8.5-10.1) mg/dL Magnesium (1.8-2.4) mg/dl C-Reactive Protein 10.0 H* (<1.0) mg/dL HCG, Qual (NEGATIVE) Gurpreet Results Last 24 Hours: Microbiology 11/19/17 17:25 Aerobic Blood Culture - Preliminary Blood - Venous Gram Positive Cocci Anaerobic Blood Culture - Preliminary Gram Positive Cocci 11/19/17 17:30 Aerobic Blood Culture - Preliminary Blood - Venous - Lab Draw Gram Positive Cocci Anaerobic Blood Culture - Final 11/19/17 18:39 Urine Culture - Final Urine, Clean Catch Escherichia Coli Med Orders - Current: Current Medications Acetaminophen (Tylenol) 650 mg PO Q4H PRN PRN Reason: Pain (Mild 1-3)/fever Hydrocodone Bitart/Acetaminophen ([place] 325-5 Mg) 1 tab PO Q4H PRN PRN Reason: Pain (moderate 4-6) Last Admin: 11/21/17 05:26 Dose: 1 tab Albuterol/Ipratropium (Duoneb 3.0-0.5 Mg/3 Ml) 3 ml NEB Q4H PRN PRN Reason: Shortness Of Breath/wheezing Aspirin (Aspirin) 81 mg PO DAILY [facility] Last Admin: 11/21/17 08:44 Dose: 81 mg Bisacodyl (Dulcolax) 5 mg PO DAILY PRN PRN Reason: Constipation Dextrose/Water (Dextrose 50% In Water) 50 ml IVPUSH ASDIRECTED PRN PRN Reason: Hypoglycemia Docusate Sodium (Colace) 100 mg PO BID PRN PRN Reason: Constipation Last Admin: 11/20/17 08:42 Dose: 100 mg Glipizide (Glucotrol Xl) 5 mg PO BID [facility] Last Admin: 11/21/17 08:44 Dose: 5 mg Hydralazine HCl (Apresoline) 20 mg IVPUSH Q4H PRN PRN Reason: Hypertension Hydromorphone HCl (Dilaudid) 0.25 mg IVPUSH Q2H PRN PRN Reason: Pain (severe 7-10) Last Admin: 11/21/17 08:57 Dose: 0.25 mg Promethazine HCl 12.5 mg/ (Sodium Chloride) 50.5 mls @ 100 mls/hr IV Q6H PRN PRN Reason: Nausea/Vomiting Insulin Aspart (Novolog) 0 unit SUBCUT QIDACANDBED [facility]; Protocol Last Admin: 11/21/17 08:24 Dose: Not Given Lisinopril (Prinivil) 10 mg PO DAILY [facility] Last Admin: 11/21/17 08:44 Dose: 10 mg Lorazepam (Ativan) 2 mg IVPUSH Q4H PRN PRN Reason: Seizures Lorazepam (Ativan) 1 mg IV Q6H PRN PRN Reason: Anxiety Magnesium Sulfate (Pharmacy To Dose - Magnesium Replacement) 0 dose .XX ASDIRECTED PRN PRN Reason: RX TO WATCH MAG LEVELS Metformin HCl (Glucophage) 500 mg PO DAILY [facility] Last Admin: 11/21/17 08:44 Dose: 500 mg Metoprolol Tartrate (Lopressor) 5 mg IVPUSH Q4H PRN PRN Reason: Tachycardia Ondansetron HCl (Zofran Odt) 4 mg PO Q6H PRN PRN Reason: Nausea\vomiting Ondansetron HCl (Zofran) 4 mg IV Q6H PRN PRN Reason: Nausea/Vomiting Oral Electrolytes (Thermotabs) 2 each PO BID [facility] Last Admin: 11/21/17 08:44 Dose: 2 each Pantoprazole Sodium (Protonix) 40 mg PO DAILY@0700 [facility] Last Admin: 11/21/17 06:43 Dose: 40 mg Polyethylene Glycol (Miralax) 17 gm PO DAILY PRN PRN Reason: Constipation Potassium Chloride (Klor-Con M20) 20 meq PO DAILY [facility] Last Admin: 11/21/17 08:44 Dose: 20 meq Potassium Chloride (Pharmacy To Dose - Potassium Replacement) 0 dose .XX ASDIRECTED PRN PRN Reason: RX TO WATCH Prednisone (Prednisone) 60 mg PO WITHBREAKFAST [facility] Last Admin: 11/21/17 06:43 Dose: 60 mg Senna/Docusate Sodium (Senna Plus) 1 tab PO BID PRN PRN Reason: Constipation Temazepam (Restoril) 15 mg PO BEDTIME PRN PRN Reason: Sleep Discontinued Medications Hydromorphone HCl (Dilaudid) 1 mg IVPUSH ONETIME ONE Stop: 11/19/17 16:45 Last Admin: 11/19/17 17:25 Dose: Not Given Hydromorphone HCl (Dilaudid) 1 mg IM ONETIME ONE Stop: 11/19/17 17:07 Last Admin: 11/19/17 17:26 Dose: Not Given Hydromorphone HCl (Dilaudid) 1 mg IM ONETIME ONE Stop: 11/19/17 17:11 Last Admin: 11/19/17 17:21 Dose: 1 mg Sodium Chloride (Normal Saline) 1,000 mls @ 500 mls/hr IV ASDIRECTED [facility] Sodium Chloride (Normal Saline) 1,000 mls @ 999 mls/hr IV ASDIRECTED NICOLE Last Admin: 11/19/17 18:41 Dose: 999 mls/hr Potassium Chloride 10 meq/ (Premix) 100 mls @ 100 mls/hr IV ASDIRECTED STA Stop: 11/19/17 19:31 Last Admin: 11/19/17 18:41 Dose: 100 mls/hr Potassium Chloride 10 meq/ (Premix) 100 mls @ 100 mls/hr IV ONETIME ONE Stop: 11/19/17 19:32 Last Admin: 11/19/17 21:49 Dose: Not Given Potassium Chloride 10 meq/ (Premix) 100 mls @ 100 mls/hr IV Q1H NICOLE Stop: 11/20/17 01:29 Last Admin: 11/19/17 21:50 Dose: Not Given Ketorolac Tromethamine (Toradol) 30 mg IVPUSH ONETIME NICOLE Ketorolac Tromethamine (Toradol) 30 mg IM ONETIME ONE Stop: 11/19/17 17:08 Last Admin: 11/19/17 17:20 Dose: 30 mg Metoclopramide HCl (Reglan) 10 mg IVPUSH ONETIME ONE Stop: 11/19/17 16:45 Last Admin: 11/19/17 17:26 Dose: Not Given Metoclopramide HCl (Reglan) 10 mg IM ONETIME ONE Stop: 11/19/17 17:08 Last Admin: 11/19/17 17:19 Dose: 10 mg Omeprazole (Omeprazole) 20 mg PO DAILY [facility] Pneumococcal Polyvalent Vaccine (Pneumovax 23) 0.5 ml IM .ONCE ONE Stop: 11/19/17 21:18 Potassium Chloride (Klor-Con M20) 60 meq PO ONETIME ONE Stop: 11/19/17 21:40 Last Admin: 11/19/17 22:27 Dose: 60 meq Prednisone (Prednisone) 60 mg PO ONETIME ONE Stop: 11/20/17 08:25 Last Admin: 11/20/17 08:39 Dose: 60 mg - Exam General: Alert, Oriented, Cooperative, No Acute Distress, Other (Morbidly Obese) HEENT: Pupils Equal, Pupils Reactive, EOMI, Mucous Membr. Moist/[place] Neck: Supple, Trachea Midline, No JVD, Other (short and thick neck) Lungs: Clear to Auscultation, Normal Respiratory Effort Cardiovascular: Regular Rate, Regular Rhythm GI/Abdominal Exam: Normal Bowel Sounds, Soft, Non-Tender, No Organomegaly, No Distention, No Abnormal Bruit, No Mass (Female) Exam: Deferred Back Exam: Normal Inspection, Decreased Range of Motion Extremities: Normal Inspection, Normal Range of Motion, Non-Tender, No Pedal Edema, Normal Capillary Refill Peripheral Pulses: 3+: Posterior Tibial (L), Posterior Tibial (R), Dorsalis Pedis (L), Dorsalis Pedis (R) Skin: Warm, Dry, Intact Neurological: No New Focal Deficit Psy/Mental Status: Alert, Normal Affect, Normal Mood - Problem List Review Problem List Initiated/Reviewed/Updated: Yes - My Orders Last 24 Hours: My Active Orders 11/20/17 09:00 Aspirin 81 mg PO DAILY Lisinopril [Prinivil] 10 mg PO DAILY Potassium Chloride [Klor-Con M20] 20 meq PO DAILY Potassium Chloride/NaCl [Thermotabs] 2 each PO BID metFORMIN [Glucophage] 500 mg PO DAILY 11/21/17 07:00 predniSONE 60 mg PO WITHBREAKFAST 11/22/17 05:11 BASIC METABOLIC PANEL,BMP [CHEM] AM CBC WITH AUTO DIFF [HEME] AM CRP [C-REACTIVE PROTEIN] [CHEM] AM MAGNESIUM [CHEM] AM 11/23/17 05:11 BASIC METABOLIC PANEL,BMP [CHEM] AM CBC WITH AUTO DIFF [HEME] AM CRP [C-REACTIVE PROTEIN] [CHEM] AM MAGNESIUM [CHEM] AM 11/24/17 05:11 BASIC METABOLIC PANEL,BMP [CHEM] AM CBC WITH AUTO DIFF [HEME] AM CRP [C-REACTIVE PROTEIN] [CHEM] AM MAGNESIUM [CHEM] AM 11/25/17 05:11 CRP [C-REACTIVE PROTEIN] [CHEM] AM 11/26/17 05:11 CRP [C-REACTIVE PROTEIN] [CHEM] AM - Plan Plan:: Assessment/Plan: Acute: Bacteremia - 3/4 bottle; Probable Staph Aureus (Per Microbiology) - Reports no prosthetic device - UA is negative for GPC organism - Will perform a complete body survey (look for skin lesions) - Will start IV Vancomycin for pharmacy to dose - Repeat blood in 48 hrs Polyarthralgia Arthritis - Seen in ED initially--> was given oral steroid and narcotic pills - Risk Factor: Morbid Obesity with BMI of 48.6 - RF and Terrell screening negative - Suspect rheumatologic vs autoimmune disease in etiology - No obvious edema, erythema and non tender to palpation on large joints - Could not appreciate grinding - Pain with active movements - CRP is significantly elevated at 17.8 --> 15.9--> 10; ESR 80--> 70 - Antic-CCP (send out), EBV, CMV, Enterovirus, Adenovirus, Alphavirus, Hepatitis Panel, HSV 1 and 2, Varicella, HHV 6, Parvo B19 virus, and Tick Borne Disease work up- all pending (patient aware this may take sometime -could be over week before we get the results back) - Refused HIV screening this AM; she states she was tested Thursday in [facility] pending result - Continue Prednisone 60 mg po daily Asymptomatic Bacteruria - UA CX pos for E. coli and resistant to Quinolones - Recommend no treatment New Onset of DM2 - BS may get worse due to steroid therapy - A1C 7.40 - Continue Metformin 500 mg po BID, Glipizide 5 mg po BID and ISS coverage - Accu-check QID AC and HS - She may benefit with Jardiance and Victoza (Cardiovascular benefit and weight loss) - Lipid panel shows significantly low HDL level but Microalbuminemia is negative - Continue low dose ASA and ACEI Dyslipidemia - HLD is 16 - At this point, I would recommend LSM - Dietary consult for proper diet Metabolic Syndrome - Abdominal Obesity, DM2; Low HDL level - Goal: LSM to lose weight Hyponatremia, Continue to Improve - Na 128 --> 132--> 133 - Unclear at this point; she is not on thiazide - Resume thermotabs po BID - Replete and monitor Hypomagnesemia - Mg 1.4 - 2/2 inadequate intake - Replete and monitor Hypokalemia, Slightly worse today - K 3.1 --> 3.9--> 3.4 - Unclear at this point; she is not on loop diuretic and no hx/o uncontrolled hypertension - Replete and monitor Substance Abuse - UDs is pos for THC and Oxy - Counseled on elicit drug use; also discouraged combo use of narcotics and marijuana for pain control Morbid Obesity - Informed patient excess weight is contributory to her acute illness - Advised LSM - She carries no hx/o valvulopathy; she may benefit with Belviq 10 mg po daily after discharge (hospital don't carry it) - Dietary consult for weight Management Plan: She is no worse than yesterday Transfer to Inpatient Status w/o Tele Continue oral steroid for anti-inflammatory, PT/OT consult, and PT/OT consult Routine AM Labs Tick Born Disease/Viral Panel and and Anti-CCP- all pending (patient aware tests may take a while for results to come back) Charts obtained from [facility]- were old notes and labs done back in 2012 Rheumatology referral after discharge SW/CM for d/c planning Additional orders as above Code Status: 1
[2017-11-21] MEDS ORDERED: Vancomycin 500 MG SDV IV SCH (09:45)
[2017-11-21] MEDS ORDERED: Vancomycin 2 GM in Sodium Chloride 0.9% 500 ML IV ONE (10:00)
[2017-11-21] MEDS: Sodium Chloride 0.9% 1,000 ML IV SCH ×2 (11:01→21:12)
[2017-11-21] MEDS: Magnesium Oxide 400 MG Tab PO SCH ×3 (11:14→21:04)
[2017-11-21] MEDS: Vancomycin 1.5 GM in Sodium Chloride 0.9% 500 ML IV SCH (17:59)
[2017-11-21] MEDS: Saccharomyces Boulardii (Probiotic) 250 MG Cap PO SCH (21:04)
[2017-11-21] MEDS ORDERED: Vancomycin 1500 MG in Sodium Chloride 0.9% 500 ML IV SCH ×3 (22:00)
--- NOTE | 2017-11-21 23:39 | PCM.SN ---
- Free Text/Narrative Note: Anesthesia Note: Start: 2229 Stop: 2329 IV to left foot 24 gauge patent intact and flushed with 20ml's of normal saline. Multiple attempts with poor veins noted, and patient states the use of drugs via IV route performed 1 year ago. Nursing staff informed of this comment.
[2017-11-22] MEDS: HYDROmorphone 0.5 MG/0.5 ML SYRINGE IVPUSH PRN
[2017-11-22] MEDS: Acetaminophen/HYDROcodone 325-5 MG Tab PO PRN ×4 (06:00→21:42)
[2017-11-22] MEDS: predniSONE 20 MG Tab PO SCH (06:00)
[2017-11-22] MEDS: Pantoprazole 40 MG Tab.CR PO SCH (06:00)
[2017-11-22] MEDS: Vancomycin 1.5 GM in Sodium Chloride 0.9% 500 ML IV SCH ×2 (06:45→16:19)
[2017-11-22] MEDS: Insulin Aspart 100 Units/ML 3 ML Pen SUBCUT SCH ×4 (07:02→22:31)
--- NOTE | 2017-11-22 08:08 | PCM.PN ---
- General Info Date of Service: 11/22/17 Admission Dx/Problem (Free Text): Admission Diagnosis/Problem Admission Diagnosis/Problem Hyponatremia Subjective Update: Follow Up Functional Status: Reports: Pain Controlled, Tolerating Diet, Urinating. Denies : New Symptoms - Review of Systems General: Denies: Fever, Weakness, Fatigue, Malaise, Chills HEENT: Reports: No Symptoms Pulmonary: Denies: Shortness of Breath, Pleuritic Chest Pain, Cough, Sputum Cardiovascular: Denies: Chest Pain, Palpitations, Dyspnea on Exertion, Orthopnea , Lightheadedness Gastrointestinal: Denies: Abdominal Pain, Difficulty Swallowing, Nausea, Vomiting Genitourinary: Reports: No Symptoms Musculoskeletal: Reports: Joint Pain Skin: Reports: Bruising. Denies: Cyanosis, Jaundice, Mottled, Pallor, Diaphoresis, Pruritis Neurological: Denies: Confusion, Trouble Speaking, Difficulty Walking, Weakness , Gait Disturbance Psychiatric: Denies: Depression, Anxiety, Agitation, Cravings, Hallucinations, Suicidal Ideation Systems Review Comment:: No overnight or acute issues. She slept pretty good and feels better this AM. Her pain level is 0. She remains afebrile but her WBC is elevated at 12.85. Her Mg is 1.5 and CRP improves to 8.7. - Patient Data Vitals - Most Recent: Last Vital Signs Temp 37.3 C 11/22/17 06:02 Pulse 107 H 11/22/17 06:02 Resp 16 11/22/17 06:02 BP 125/63 11/22/17 06:02 Pulse Ox 96 11/22/17 06:02 Weight - Most Recent: 147.554 kg I&O - Last 24 Hours: Intake & Output 11/21/17 11/22/17 11/22/17 22:59 06:59 14:59 Intake Total 800 Balance 800 Lab Results Last 24 Hours: Laboratory Results - last 24 hr 11/21/17 11/21/17 11/21/17 Range/Units 10:31 16:45 21:07 WBC (3.98-10.04) K/mm3 RBC (3.98-5.22) M/mm3 Hgb (11.2-15.7) gm/L Hct (34.1-44.9) % MCV (79.4-94.8) fl MCH (25.6-32.2) pg MCHC (32.2-35.5) g/dl RDW Std Deviation (36.4-46.3) fL Plt Count (182-369) K/mm3 MPV (9.4-12.3) fl Neut % (Auto) (34.0-71.1) % Lymph % (Auto) (19.3-51.7) % [place] % (Auto) (4.7-12.5) % Eos % (Auto) (0.7-5.8) Baso % (Auto) (0.1-1.2) % Neut # (Auto) (1.56-6.13) K/mm3 Lymph # (Auto) (1.18-3.74) K/mm3 [place] # (Auto) (0.24-0.36) K/mm3 Eos # (Auto) (0.04-0.36) K/mm3 Baso # (Auto) (0.01-0.08) K/mm3 Manual Slide Review ESR (0-20) mm/hr Sodium (136-145) mEq/L Potassium (3.5-5.1) mEq/L Chloride (98-107) mEq/L Carbon Dioxide (21-32) mEq/L Anion Gap (5-15) BUN (7-18) mg/dL Creatinine (0.55-1.02) mg/dL Est Cr Clr Drug Dosing mL/min Estimated GFR (MDRD) (>60) mL/min BUN/Creatinine Ratio (14-18) Glucose (74-106) mg/dL POC Glucose 151 H 165 H 120 H (70-105) mg/dL Calcium (8.5-10.1) mg/dL Magnesium (1.8-2.4) mg/dl C-Reactive Protein (<1.0) mg/dL 11/22/17 11/22/17 11/22/17 Range/Units 05:28 06:05 06:05 WBC 12.85 H (3.98-10.04) K/mm3 RBC 3.83 L (3.98-5.22) M/mm3 Hgb 11.0 L (11.2-15.7) gm/L Hct 32.9 L (34.1-44.9) % MCV 85.9 (79.4-94.8) fl MCH 28.7 (25.6-32.2) pg MCHC 33.4 (32.2-35.5) g/dl RDW Std Deviation 45.1 (36.4-46.3) fL Plt Count 205 (182-369) K/mm3 MPV 10.1 (9.4-12.3) fl Neut % (Auto) 76.6 H (34.0-71.1) % Lymph % (Auto) 12.7 L (19.3-51.7) % [place] % (Auto) 9.7 (4.7-12.5) % Eos % (Auto) 0.1 L (0.7-5.8) Baso % (Auto) 0.1 (0.1-1.2) % Neut # (Auto) 9.85 H (1.56-6.13) K/mm3 Lymph # (Auto) 1.63 (1.18-3.74) K/mm3 [place] # (Auto) 1.25 H (0.24-0.36) K/mm3 Eos # (Auto) 0.01 L (0.04-0.36) K/mm3 Baso # (Auto) 0.01 (0.01-0.08) K/mm3 Manual Slide Review Normal smear ESR (0-20) mm/hr Sodium 134 L (136-145) mEq/L Potassium 4.0 (3.5-5.1) mEq/L Chloride 104 (98-107) mEq/L Carbon Dioxide 23 (21-32) mEq/L Anion Gap 11.0 (5-15) BUN 8 (7-18) mg/dL Creatinine 0.7 (0.55-1.02) mg/dL Est Cr Clr Drug Dosing 111.65 mL/min Estimated GFR (MDRD) > 60 (>60) mL/min BUN/Creatinine Ratio 11.4 L (14-18) Glucose 84 (74-106) mg/dL POC Glucose 78 (70-105) mg/dL Calcium 8.3 L (8.5-10.1) mg/dL Magnesium 1.5 L (1.8-2.4) mg/dl C-Reactive Protein 8.7 H* (<1.0) mg/dL 11/22/17 Range/Units 06:05 WBC (3.98-10.04) K/mm3 RBC (3.98-5.22) M/mm3 Hgb (11.2-15.7) gm/L Hct (34.1-44.9) % MCV (79.4-94.8) fl MCH (25.6-32.2) pg MCHC (32.2-35.5) g/dl RDW Std Deviation (36.4-46.3) fL Plt Count (182-369) K/mm3 MPV (9.4-12.3) fl Neut % (Auto) (34.0-71.1) % Lymph % (Auto) (19.3-51.7) % [place] % (Auto) (4.7-12.5) % Eos % (Auto) (0.7-5.8) Baso % (Auto) (0.1-1.2) % Neut # (Auto) (1.56-6.13) K/mm3 Lymph # (Auto) (1.18-3.74) K/mm3 [place] # (Auto) (0.24-0.36) K/mm3 Eos # (Auto) (0.04-0.36) K/mm3 Baso # (Auto) (0.01-0.08) K/mm3 Manual Slide Review ESR 52 H (0-20) mm/hr Sodium (136-145) mEq/L Potassium (3.5-5.1) mEq/L Chloride (98-107) mEq/L Carbon Dioxide (21-32) mEq/L Anion Gap (5-15) BUN (7-18) mg/dL Creatinine (0.55-1.02) mg/dL Est Cr Clr Drug Dosing mL/min Estimated GFR (MDRD) (>60) mL/min BUN/Creatinine Ratio (14-18) Glucose (74-106) mg/dL POC Glucose (70-105) mg/dL Calcium (8.5-10.1) mg/dL Magnesium (1.8-2.4) mg/dl C-Reactive Protein (<1.0) mg/dL Gurpreet Results Last 24 Hours: Microbiology 11/19/17 17:25 Aerobic Blood Culture - Final Blood - Venous Staphylococcus Aureus Anaerobic Blood Culture - Preliminary Staphylococcus Aureus 11/19/17 17:30 Aerobic Blood Culture - Final Blood - Venous - Lab Draw Staphylococcus Aureus Anaerobic Blood Culture - Final 11/19/17 18:39 Urine Culture - Final Urine, Clean Catch Escherichia Coli Med Orders - Current: Current Medications Acetaminophen (Tylenol) 650 mg PO Q4H PRN PRN Reason: Pain (Mild 1-3)/fever Hydrocodone Bitart/Acetaminophen ([place] 325-5 Mg) 1 tab PO Q4H PRN PRN Reason: Pain (moderate 4-6) Last Admin: 11/22/17 06:00 Dose: 1 tab Albuterol/Ipratropium (Duoneb 3.0-0.5 Mg/3 Ml) 3 ml NEB Q4H PRN PRN Reason: Shortness Of Breath/wheezing Aspirin (Aspirin) 81 mg PO DAILY [facility] Last Admin: 11/21/17 08:44 Dose: 81 mg Bisacodyl (Dulcolax) 5 mg PO DAILY PRN PRN Reason: Constipation Dextrose/Water (Dextrose 50% In Water) 50 ml IVPUSH ASDIRECTED PRN PRN Reason: Hypoglycemia Docusate Sodium (Colace) 100 mg PO BID PRN PRN Reason: Constipation Last Admin: 11/20/17 08:42 Dose: 100 mg Glipizide (Glucotrol Xl) 5 mg PO BID [facility] Last Admin: 11/21/17 21:04 Dose: 5 mg Hydralazine HCl (Apresoline) 20 mg IVPUSH Q4H PRN PRN Reason: Hypertension Hydromorphone HCl (Dilaudid) 0.25 mg IVPUSH Q2H PRN PRN Reason: Pain (severe 7-10) Last Admin: 11/22/17 00:00 Dose: 0.25 mg Promethazine HCl 12.5 mg/ (Sodium Chloride) 50.5 mls @ 100 mls/hr IV Q6H PRN PRN Reason: Nausea/Vomiting Sodium Chloride (Normal Saline) 1,000 mls @ 100 mls/hr IV ASDIRECTED [facility] Last Admin: 11/21/17 21:12 Dose: 100 mls/hr Vancomycin HCl 1.5 gm/ Sodium (Chloride) 500 mls @ 330 mls/hr IV Q8H [facility] Last Admin: 11/22/17 06:45 Dose: 330 mls/hr Insulin Aspart (Novolog) 0 unit SUBCUT QIDACANDBED [facility]; Protocol Last Admin: 11/22/17 07:02 Dose: Not Given Lisinopril (Prinivil) 10 mg PO DAILY [facility] Last Admin: 11/21/17 08:44 Dose: 10 mg Lorazepam (Ativan) 2 mg IVPUSH Q4H PRN PRN Reason: Seizures Lorazepam (Ativan) 1 mg IV Q6H PRN PRN Reason: Anxiety Last Admin: 11/21/17 21:24 Dose: 1 mg Magnesium Sulfate (Pharmacy To Dose - Magnesium Replacement) 0 dose .XX ASDIRECTED PRN PRN Reason: RX TO WATCH MAG LEVELS Metformin HCl (Glucophage) 500 mg PO DAILY [facility] Last Admin: 11/21/17 08:44 Dose: 500 mg Metoprolol Tartrate (Lopressor) 5 mg IVPUSH Q4H PRN PRN Reason: Tachycardia Ondansetron HCl (Zofran Odt) 4 mg PO Q6H PRN PRN Reason: Nausea\vomiting Ondansetron HCl (Zofran) 4 mg IV Q6H PRN PRN Reason: Nausea/Vomiting Oral Electrolytes (Thermotabs) 2 each PO BID [facility] Last Admin: 11/21/17 21:03 Dose: 2 each Pantoprazole Sodium (Protonix) 40 mg PO DAILY@0700 [facility] Last Admin: 11/22/17 06:00 Dose: 40 mg Polyethylene Glycol (Miralax) 17 gm PO DAILY PRN PRN Reason: Constipation Potassium Chloride (Klor-Con M20) 20 meq PO DAILY [facility] Last Admin: 11/21/17 08:44 Dose: 20 meq Potassium Chloride (Pharmacy To Dose - Potassium Replacement) 0 dose .XX ASDIRECTED PRN PRN Reason: RX TO WATCH Prednisone (Prednisone) 60 mg PO WITHBREAKFAST [facility] Last Admin: 11/22/17 06:00 Dose: 60 mg Saccharomyces Boulardii (Florastor) 250 mg PO BID [facility] Last Admin: 11/21/17 21:04 Dose: 250 mg Senna/Docusate Sodium (Senna Plus) 1 tab PO BID PRN PRN Reason: Constipation Temazepam (Restoril) 15 mg PO BEDTIME PRN PRN Reason: Sleep Vancomycin HCl (Pharmacy To Dose - Vancomycin) 0 dose .XX ASDIRECTED PRN PRN Reason: RX TO DOSE VANCOMYCIN Discontinued Medications Hydromorphone HCl (Dilaudid) 1 mg IVPUSH ONETIME ONE Stop: 04/26/18 16:45 Last Admin: 11/19/17 17:25 Dose: Not Given Hydromorphone HCl (Dilaudid) 1 mg IM ONETIME ONE Stop: 11/19/17 17:07 Last Admin: 11/19/17 17:26 Dose: Not Given Hydromorphone HCl (Dilaudid) 1 mg IM ONETIME ONE Stop: 11/19/17 17:11 Last Admin: 11/19/17 17:21 Dose: 1 mg Sodium Chloride (Normal Saline) 1,000 mls @ 500 mls/hr IV ASDIRECTED NICOLE Sodium Chloride (Normal Saline) 1,000 mls @ 999 mls/hr IV ASDIRECTED NICOLE Last Admin: 11/19/17 18:41 Dose: 999 mls/hr Potassium Chloride 10 meq/ (Premix) 100 mls @ 100 mls/hr IV ASDIRECTED STA Stop: 11/19/17 19:31 Last Admin: 11/19/17 18:41 Dose: 100 mls/hr Potassium Chloride 10 meq/ (Premix) 100 mls @ 100 mls/hr IV ONETIME ONE Stop: 11/19/17 19:32 Last Admin: 11/19/17 21:49 Dose: Not Given Potassium Chloride 10 meq/ (Premix) 100 mls @ 100 mls/hr IV Q1H [facility] Stop: 11/20/17 01:29 Last Admin: 11/19/17 21:50 Dose: Not Given Vancomycin HCl 2 gm/ Sodium (Chloride) 500 mls @ 250 mls/hr IV ONETIME ONE Stop: 11/21/17 11:59 Last Admin: 11/21/17 11:31 Dose: 250 mls/hr Vancomycin HCl 1 gm/Vancomycin HCl 500 mg/ Sodium Chloride 500 mls @ 333.025 mls/hr IV Q12H [facility] Ketorolac Tromethamine (Toradol) 30 mg IVPUSH ONETIME [facility] Ketorolac Tromethamine (Toradol) 30 mg IM ONETIME ONE Stop: 11/19/17 17:08 Last Admin: 11/19/17 17:20 Dose: 30 mg Magnesium Oxide (Magnesium Oxide) 400 mg PO TID [facility] Stop: 11/21/17 21:01 Last Admin: 11/21/17 21:04 Dose: 400 mg Metoclopramide HCl (Reglan) 10 mg IVPUSH ONETIME ONE Stop: 11/19/17 16:45 Last Admin: 11/19/17 17:26 Dose: Not Given Metoclopramide HCl (Reglan) 10 mg IM ONETIME ONE Stop: 11/19/17 17:08 Last Admin: 11/19/17 17:19 Dose: 10 mg Omeprazole (Omeprazole) 20 mg PO DAILY [facility] Pneumococcal Polyvalent Vaccine (Pneumovax 23) 0.5 ml IM .ONCE ONE Stop: 11/19/17 21:18 Potassium Chloride (Klor-Con M20) 60 meq PO ONETIME ONE Stop: 11/19/17 21:40 Last Admin: 11/19/17 22:27 Dose: 60 meq Potassium Chloride (Klor-Con M20) 40 meq PO Q4H NICOLE Stop: 11/21/17 15:01 Last Admin: 11/21/17 14:35 Dose: 40 meq Prednisone (Prednisone) 60 mg PO ONETIME ONE Stop: 11/20/17 08:25 Last Admin: 11/20/17 08:39 Dose: 60 mg Vancomycin HCl (Vancomycin) 2,194.935 mg 15 mg/kg (2194.935 mg) IV Q12H [facility] Last Admin: 11/21/17 11:02 Dose: Not Given - Exam General: Alert, Oriented, Cooperative, No Acute Distress, Other (Morbidly Obese) HEENT: Pupils Equal, Pupils Reactive, EOMI, Mucous Membr. Moist/[place] Neck: Supple, Trachea Midline, No JVD, No Thyromegaly, Other (short and thick neck) Lungs: Clear to Auscultation, Normal Respiratory Effort Cardiovascular: Regular Rate, Regular Rhythm GI/Abdominal Exam: Normal Bowel Sounds, Soft, Non-Tender, No Organomegaly, No Distention, No Abnormal Bruit, No Mass, Pelvis Stable (Female) Exam: Deferred Back Exam: Normal Inspection, Decreased Range of Motion Extremities: Normal Inspection, Normal Range of Motion, Non-Tender, No Pedal Edema, Normal Capillary Refill, Limited Range of Motion (on multiple large joints). No: Joint Swelling, Increased Warmth Peripheral Pulses: 2+: Dorsalis Pedis (L), Dorsalis Pedis (R) Skin: Warm, Dry, Intact Neurological: No New Focal Deficit Psy/Mental Status: Alert, Normal Affect, Normal Mood - Problem List Review Problem List Initiated/Reviewed/Updated: Yes - My Orders Last 24 Hours: My Active Orders 11/21/17 09:39 Patient Status [ADT] Routine 11/21/17 09:45 Sodium Chloride 0.9% [Normal Saline] 1,000 ml IV ASDIRECTED Vancomycin Pharmacy to Dose [Pharmacy to Dose - Vancomycin] 0 dose .XX ASDIRECTED PRN 11/21/17 19:00 Vancomycin 1.5 gm Sodium Chloride 0.9% [Normal Saline] 500 ml IV Q8H 11/21/17 21:00 Saccharomyces Boulardii [Florastor] 250 mg PO BID 11/22/17 10:30 VANCOMYCIN TROUGH [CHEM] Timed 11/23/17 05:11 BASIC METABOLIC PANEL,BMP [CHEM] AM CBC WITH AUTO DIFF [HEME] AM CRP [C-REACTIVE PROTEIN] [CHEM] AM ESR [SEDIMENTATION RATE AUTO] [HEME] AM MAGNESIUM [CHEM] AM 11/24/17 05:11 BASIC METABOLIC PANEL,BMP [CHEM] AM CBC WITH AUTO DIFF [HEME] AM CRP [C-REACTIVE PROTEIN] [CHEM] AM ESR [SEDIMENTATION RATE AUTO] [HEME] AM MAGNESIUM [CHEM] AM 11/25/17 05:11 CRP [C-REACTIVE PROTEIN] [CHEM] AM ESR [SEDIMENTATION RATE AUTO] [HEME] AM 11/26/17 05:11 CRP [C-REACTIVE PROTEIN] [CHEM] AM ESR [SEDIMENTATION RATE AUTO] [HEME] AM - Plan Plan:: Assessment/Plan: Acute: Bacteremia - Admits to hx/o IVDU - 3/4 bottle; Probable Staph Aureus (Per Microbiology) - Reports no prosthetic device - UA is negative for GPC organism - No skin lesions, ulcers or wound on whole body survry - Continue IV Vancomycin for pharmacy to dose - Repeat blood in 48 hrs Polyarthralgia Arthritis - Seen in ED initially--> was given oral steroid and narcotic pills - Risk Factor: Morbid Obesity with BMI of 48.6 - RF and [place] screening negative - Suspect rheumatologic vs autoimmune disease in etiology - No obvious edema, erythema and non tender to palpation on large joints - Could not appreciate grinding - Pain with active movements - CRP is significantly elevated at 17.8 --> 15.9--> 10; ESR 80--> 70 - Antic-CCP (send out), EBV, CMV, Enterovirus, Adenovirus, Alphavirus, Hepatitis Panel, HSV 1 and 2, Varicella, HHV 6, Parvo B19 virus, and Tick Borne Disease work up- all pending (patient aware this may take sometime -could be over week before we get the results back) - Refused HIV screening this AM; she states she was tested Thursday in [facility] pending result - Continue Prednisone 60 mg po daily Asymptomatic Bacteruria - UA CX pos for E. coli and resistant to Quinolones - Recommend no treatment New Onset of DM2 - BS may get worse due to steroid therapy - A1C 7.40 - Continue Metformin 500 mg po BID, Glipizide 5 mg po BID and ISS coverage - Accu-check QID AC and HS - She may benefit with Jardiance and Victoza (Cardiovascular benefit and weight loss) - Lipid panel shows significantly low HDL level but Microalbuminemia is negative - Continue low dose ASA and ACEI Dyslipidemia - HLD is 16 - At this point, I would recommend LSM - Dietary consult for proper diet Metabolic Syndrome - Abdominal Obesity, DM2; Low HDL level - Goal: LSM to lose weight Hyponatremia, Continue to Improve - Na 128 --> 132--> 133--> 134 - Unclear at this point; she is not on thiazide - Resume thermotabs po BID - Replete and monitor Hypomagnesemia, Improved - Mg 1.4--> 1.5 - 2/2 inadequate intake - Replete and monitor Substance Abuse - UDs is pos for THC and Oxy - Counseled on elicit drug use; also discouraged combo use of narcotics and marijuana for pain control Morbid Obesity - Informed patient excess weight is contributory to her acute illness - Advised LSM - She carries no hx/o valvulopathy; she may benefit with Belviq 10 mg po daily after discharge (hospital don't carry it) - Dietary consult for weight Management Resolved: S/p Hypokalemia - K 3.1 --> 3.9--> 3.4--> 4.0 - Unclear at this point; she is not on loop diuretic and no hx/o uncontrolled hypertension - Replete and monitor Plan: She is better today clinically than yesterday Continue oral steroid for anti-inflammatory, PT/OT consult, and PT/OT consult Routine AM Labs Tick Born Disease/Viral Panel and and Anti-CCP- all pending (patient aware tests may take a while for results to come back) 2D Echo in AM r/o IE Rheumatology referral after discharge SW/CM for d/c planning Additional orders as above Code Status: 1
[2017-11-22] MEDS: Potassium Chloride 20 MEQ Tab.ER PO SCH (09:00)
[2017-11-22] MEDS: Saccharomyces Boulardii (Probiotic) 250 MG Cap PO SCH ×2 (09:01→21:41)
[2017-11-22] MEDS: metFORMIN 500 MG Tab PO SCH (09:01)
[2017-11-22] MEDS: Lisinopril 10 MG Tab PO SCH (09:01)
[2017-11-22] MEDS: Aspirin 81 MG Tab.Chew PO SCH (09:02)
[2017-11-22] MEDS: Potassium Chloride/Sodium Chloride Tab PO SCH ×2 (09:02→21:41)
[2017-11-22] MEDS: glipiZIDE 5 MG Tab.ER PO SCH ×2 (09:02→21:41)
[2017-11-22] MEDS ORDERED: Magnesium Sulfate/Water 2 GM in Premix Bag 1 BAG IV ONE (10:30)
--- NOTE | 2017-11-22 15:52 | PCM.SN ---
- Free Text/Narrative Note: Anesthesia Note: Start: 1500 Stop: 1548 Anesthesia requested for IV start. 20 gauge to left upper inner arm times 2 attempts via US noted. Site flushed with ease 20ml's of Normal saline.
--- NOTE | 2017-11-22 20:28 | PCM.SN ---
- Free Text/Narrative Note: Anesthesia Note: Start: 1909 Stop: 2023 Anesthesia requested for another IV start. 20 gauge to left upper arm dc'd tip in tact. 24 gauge to left inner wrist. 20 gauge to left antecubital via US done. Both sites intact and flushed with 20 ml's of normal saline.
[2017-11-23] MEDS: Vancomycin 1.5 GM in Sodium Chloride 0.9% 500 ML IV SCH ×2 (00:47→06:07)
[2017-11-23] MEDS: Acetaminophen/HYDROcodone 325-5 MG Tab PO PRN ×4 (04:07→22:36)
[2017-11-23] MEDS: predniSONE 20 MG Tab PO SCH (06:03)
[2017-11-23] MEDS: Pantoprazole 40 MG Tab.CR PO SCH (06:04)
[2017-11-23] MEDS: Insulin Aspart 100 Units/ML 3 ML Pen SUBCUT SCH ×4 (06:05→22:38)
--- NOTE | 2017-11-23 09:36 | PCM.PN ---
Addendum entered and electronically signed by Sudhir Ahumada PA-C 11/23/17 14:03 : LOS >96 hrs due to slow response to treatment. Awaiting repeat blood cultures. Original Note: <Sudhir Ahumada - Last Filed: 11/23/17 13:39> - General Info Date of Service: 11/23/17 Admission Dx/Problem (Free Text): Admission Diagnosis/Problem Admission Diagnosis/Problem Hyponatremia Subjective Update: In to see Bela. She is lying in bed watching TV. She reports some non- specific right leg pain which has since resolved. She was reportedly given a "pain pill" which took the pain away. No complaints or concerns. Her labs continue to improve. She was seen by a dietitian today. Will encourage more ambulation. Functional Status: Reports: Pain Controlled, Tolerating Diet, Ambulating, Urinating. Denies: New Symptoms - Review of Systems General: Reports: No Symptoms. Denies: Fever, Weakness, Fatigue, Malaise HEENT: Reports: No Symptoms. Denies: Other Pulmonary: Reports: No Symptoms. Denies: Shortness of Breath, Cough, Sputum Cardiovascular: Reports: No Symptoms. Denies: Chest Pain, Palpitations Gastrointestinal: Reports: No Symptoms. Denies: Abdominal Pain, Constipation, Nausea, Vomiting Genitourinary: Reports: No Symptoms Musculoskeletal: Reports: Joint Pain Skin: Reports: No Symptoms Neurological: Reports: No Symptoms Psychiatric: Reports: No Symptoms - Patient Data Vitals - Most Recent: Last Vital Signs Temp 98.4 F 11/23/17 07:38 Pulse 86 11/23/17 07:38 Resp 16 11/23/17 07:38 BP 119/61 11/23/17 07:38 Pulse Ox 96 11/23/17 07:38 Weight - Most Recent: 145.688 kg I&O - Last 24 Hours: Intake & Output 11/22/17 11/23/17 11/23/17 22:59 06:59 14:59 Intake Total 1120 400 Output Total 1600 Balance -480 400 Lab Results Last 24 Hours: Laboratory Results - last 24 hr 11/22/17 11/22/17 11/22/17 Range/Units 10:44 12:06 14:30 WBC (3.98-10.04) K/mm3 RBC (3.98-5.22) M/mm3 Hgb (11.2-15.7) gm/L Hct (34.1-44.9) % MCV (79.4-94.8) fl MCH (25.6-32.2) pg MCHC (32.2-35.5) g/dl RDW Std Deviation (36.4-46.3) fL Plt Count (182-369) K/mm3 MPV (9.4-12.3) fl Neut % (Auto) (34.0-71.1) % Lymph % (Auto) (19.3-51.7) % Sandoval % (Auto) (4.7-12.5) % Eos % (Auto) (0.7-5.8) Baso % (Auto) (0.1-1.2) % Neut # (Auto) (1.56-6.13) K/mm3 Lymph # (Auto) (1.18-3.74) K/mm3 Sandoval # (Auto) (0.24-0.36) K/mm3 Eos # (Auto) (0.04-0.36) K/mm3 Baso # (Auto) (0.01-0.08) K/mm3 ESR (0-20) mm/hr Sodium (136-145) mEq/L Potassium (3.5-5.1) mEq/L Chloride (98-107) mEq/L Carbon Dioxide (21-32) mEq/L Anion Gap (5-15) BUN (7-18) mg/dL Creatinine (0.55-1.02) mg/dL Est Cr Clr Drug Dosing mL/min Estimated GFR (MDRD) (>60) mL/min BUN/Creatinine Ratio (14-18) Glucose (74-106) mg/dL POC Glucose 176 H 182 H (70-105) mg/dL Calcium (8.5-10.1) mg/dL Magnesium (1.8-2.4) mg/dl C-Reactive Protein (<1.0) mg/dL Vancomycin Trough 16.5 (10.0-20.0) 11/22/17 11/22/17 11/23/17 Range/Units 16:16 21:47 05:10 WBC (3.98-10.04) K/mm3 RBC (3.98-5.22) M/mm3 Hgb (11.2-15.7) gm/L Hct (34.1-44.9) % MCV (79.4-94.8) fl MCH (25.6-32.2) pg MCHC (32.2-35.5) g/dl RDW Std Deviation (36.4-46.3) fL Plt Count (182-369) K/mm3 MPV (9.4-12.3) fl Neut % (Auto) (34.0-71.1) % Lymph % (Auto) (19.3-51.7) % Sandoval % (Auto) (4.7-12.5) % Eos % (Auto) (0.7-5.8) Baso % (Auto) (0.1-1.2) % Neut # (Auto) (1.56-6.13) K/mm3 Lymph # (Auto) (1.18-3.74) K/mm3 Sandoval # (Auto) (0.24-0.36) K/mm3 Eos # (Auto) (0.04-0.36) K/mm3 Baso # (Auto) (0.01-0.08) K/mm3 ESR (0-20) mm/hr Sodium (136-145) mEq/L Potassium (3.5-5.1) mEq/L Chloride (98-107) mEq/L Carbon Dioxide (21-32) mEq/L Anion Gap (5-15) BUN (7-18) mg/dL Creatinine (0.55-1.02) mg/dL Est Cr Clr Drug Dosing mL/min Estimated GFR (MDRD) (>60) mL/min BUN/Creatinine Ratio (14-18) Glucose (74-106) mg/dL POC Glucose 249 H 193 H 72 (70-105) mg/dL Calcium (8.5-10.1) mg/dL Magnesium (1.8-2.4) mg/dl C-Reactive Protein (<1.0) mg/dL Vancomycin Trough (10.0-20.0) 11/23/17 11/23/17 11/23/17 Range/Units 05:43 05:43 05:43 WBC 10.54 H (3.98-10.04) K/mm3 RBC 3.81 L (3.98-5.22) M/mm3 Hgb 10.7 L (11.2-15.7) gm/L Hct 33.3 L (34.1-44.9) % MCV 87.4 (79.4-94.8) fl MCH 28.1 (25.6-32.2) pg MCHC 32.1 L (32.2-35.5) g/dl RDW Std Deviation 46.4 H (36.4-46.3) fL Plt Count 197 (182-369) K/mm3 MPV 10.2 (9.4-12.3) fl Neut % (Auto) 71.9 H (34.0-71.1) % Lymph % (Auto) 18.0 L (19.3-51.7) % Sandoval % (Auto) 8.9 (4.7-12.5) % Eos % (Auto) 0.5 L (0.7-5.8) Baso % (Auto) 0.1 (0.1-1.2) % Neut # (Auto) 7.58 H (1.56-6.13) K/mm3 Lymph # (Auto) 1.90 (1.18-3.74) K/mm3 Sandoval # (Auto) 0.94 H (0.24-0.36) K/mm3 Eos # (Auto) 0.05 (0.04-0.36) K/mm3 Baso # (Auto) 0.01 (0.01-0.08) K/mm3 ESR 51 H (0-20) mm/hr Sodium 141 (136-145) mEq/L Potassium 3.6 (3.5-5.1) mEq/L Chloride 108 H (98-107) mEq/L Carbon Dioxide 24 (21-32) mEq/L Anion Gap 12.6 (5-15) BUN 9 (7-18) mg/dL Creatinine 0.7 (0.55-1.02) mg/dL Est Cr Clr Drug Dosing 111.65 mL/min Estimated GFR (MDRD) > 60 (>60) mL/min BUN/Creatinine Ratio 12.9 L (14-18) Glucose 92 (74-106) mg/dL POC Glucose (70-105) mg/dL Calcium 8.2 L (8.5-10.1) mg/dL Magnesium 1.9 (1.8-2.4) mg/dl C-Reactive Protein 8.2 H* (<1.0) mg/dL Vancomycin Trough (10.0-20.0) Gurpreet Results Last 24 Hours: Microbiology 11/19/17 17:25 Aerobic Blood Culture - Final Blood - Venous Staphylococcus Aureus Anaerobic Blood Culture - Final Staphylococcus Aureus 11/22/17 23:18 Anaerobic Blood Culture - Final Blood - Venous 11/19/17 17:30 Aerobic Blood Culture - Final Blood - Venous - Lab Draw Staphylococcus Aureus Anaerobic Blood Culture - Final Med Orders - Current: Current Medications Acetaminophen (Tylenol) 650 mg PO Q4H PRN PRN Reason: Pain (Mild 1-3)/fever Hydrocodone Bitart/Acetaminophen ([place] 325-5 Mg) 1 tab PO Q4H PRN PRN Reason: Pain (moderate 4-6) Last Admin: 11/23/17 04:07 Dose: 1 tab Albuterol/Ipratropium (Duoneb 3.0-0.5 Mg/3 Ml) 3 ml NEB Q4H PRN PRN Reason: Shortness Of Breath/wheezing Aspirin (Aspirin) 81 mg PO DAILY [facility] Last Admin: 11/22/17 09:02 Dose: 81 mg Bisacodyl (Dulcolax) 5 mg PO DAILY PRN PRN Reason: Constipation Dextrose/Water (Dextrose 50% In Water) 50 ml IVPUSH ASDIRECTED PRN PRN Reason: Hypoglycemia Docusate Sodium (Colace) 100 mg PO BID PRN PRN Reason: Constipation Last Admin: 11/20/17 08:42 Dose: 100 mg Glipizide (Glucotrol Xl) 5 mg PO BID [facility] Last Admin: 11/22/17 21:41 Dose: 5 mg Hydralazine HCl (Apresoline) 20 mg IVPUSH Q4H PRN PRN Reason: Hypertension Hydromorphone HCl (Dilaudid) 0.25 mg IVPUSH Q2H PRN PRN Reason: Pain (severe 7-10) Last Admin: 11/22/17 00:00 Dose: 0.25 mg Promethazine HCl 12.5 mg/ (Sodium Chloride) 50.5 mls @ 100 mls/hr IV Q6H PRN PRN Reason: Nausea/Vomiting Sodium Chloride (Normal Saline) 1,000 mls @ 100 mls/hr IV ASDIRECTED [facility] Last Admin: 11/21/17 21:12 Dose: 100 mls/hr Vancomycin HCl 1.5 gm/ Sodium (Chloride) 500 mls @ 330 mls/hr IV Q8H [facility] Last Admin: 11/23/17 06:07 Dose: 330 mls/hr Insulin Aspart (Novolog) 0 unit SUBCUT QIDACANDBED [facility]; Protocol Last Admin: 11/23/17 06:05 Dose: Not Given Lisinopril (Prinivil) 10 mg PO DAILY [facility] Last Admin: 11/22/17 09:01 Dose: 10 mg Lorazepam (Ativan) 2 mg IVPUSH Q4H PRN PRN Reason: Seizures Lorazepam (Ativan) 1 mg IV Q6H PRN PRN Reason: Anxiety Last Admin: 11/21/17 21:24 Dose: 1 mg Magnesium Sulfate (Pharmacy To Dose - Magnesium Replacement) 0 dose .XX ASDIRECTED PRN PRN Reason: RX TO WATCH MAG LEVELS Metformin HCl (Glucophage) 500 mg PO DAILY [facility] Last Admin: 11/22/17 09:01 Dose: 500 mg Metoprolol Tartrate (Lopressor) 5 mg IVPUSH Q4H PRN PRN Reason: Tachycardia Ondansetron HCl (Zofran Odt) 4 mg PO Q6H PRN PRN Reason: Nausea\\vomiting Ondansetron HCl (Zofran) 4 mg IV Q6H PRN PRN Reason: Nausea/Vomiting Oral Electrolytes (Thermotabs) 2 each PO BID [facility] Last Admin: 11/22/17 21:41 Dose: 2 each Pantoprazole Sodium (Protonix) 40 mg PO DAILY@0700 [facility] Last Admin: 11/23/17 06:04 Dose: 40 mg Polyethylene Glycol (Miralax) 17 gm PO DAILY PRN PRN Reason: Constipation Potassium Chloride (Klor-Con M20) 20 meq PO DAILY [facility] Last Admin: 11/22/17 09:00 Dose: 20 meq Potassium Chloride (Pharmacy To Dose - Potassium Replacement) 0 dose .XX ASDIRECTED PRN PRN Reason: RX TO WATCH Prednisone (Prednisone) 60 mg PO WITHBREAKFAST [facility] Last Admin: 11/23/17 06:03 Dose: 60 mg Saccharomyces Boulardii (Florastor) 250 mg PO BID [facility] Last Admin: 11/22/17 21:41 Dose: 250 mg Senna/Docusate Sodium (Senna Plus) 1 tab PO BID PRN PRN Reason: Constipation Temazepam (Restoril) 15 mg PO BEDTIME PRN PRN Reason: Sleep Vancomycin HCl (Pharmacy To Dose - Vancomycin) 0 dose .XX ASDIRECTED PRN PRN Reason: RX TO DOSE VANCOMYCIN Discontinued Medications Hydromorphone HCl (Dilaudid) 1 mg IVPUSH ONETIME ONE Stop: 11/19/17 16:45 Last Admin: 11/19/17 17:25 Dose: Not Given Hydromorphone HCl (Dilaudid) 1 mg IM ONETIME ONE Stop: 11/19/17 17:07 Last Admin: 11/19/17 17:26 Dose: Not Given Hydromorphone HCl (Dilaudid) 1 mg IM ONETIME ONE Stop: 11/19/17 17:11 Last Admin: 11/19/17 17:21 Dose: 1 mg Sodium Chloride (Normal Saline) 1,000 mls @ 500 mls/hr IV ASDIRECTED NICOLE Sodium Chloride (Normal Saline) 1,000 mls @ 999 mls/hr IV ASDIRECTED [facility] Last Admin: 11/19/17 18:41 Dose: 999 mls/hr Potassium Chloride 10 meq/ (Premix) 100 mls @ 100 mls/hr IV ASDIRECTED STA Stop: 11/19/17 19:31 Last Admin: 11/19/17 18:41 Dose: 100 mls/hr Potassium Chloride 10 meq/ (Premix) 100 mls @ 100 mls/hr IV ONETIME ONE Stop: 11/19/17 19:32 Last Admin: 11/19/17 21:49 Dose: Not Given Potassium Chloride 10 meq/ (Premix) 100 mls @ 100 mls/hr IV Q1H [facility] Stop: 11/20/17 01:29 Last Admin: 11/19/17 21:50 Dose: Not Given Vancomycin HCl 2 gm/ Sodium (Chloride) 500 mls @ 250 mls/hr IV ONETIME ONE Stop: 11/21/17 11:59 Last Admin: 11/21/17 11:31 Dose: 250 mls/hr Vancomycin HCl 1 gm/Vancomycin HCl 500 mg/ Sodium Chloride 500 mls @ 333.025 mls/hr IV Q12H [facility] Vancomycin HCl 1.5 gm/ Sodium (Chloride) 500 mls @ 330 mls/hr IV Q8H [facility] Last Admin: 11/22/17 06:45 Dose: 330 mls/hr Magnesium Sulfate 2 gm/ Premix 50 mls @ 25 mls/hr IV ONETIME ONE Stop: 11/22/17 12:29 Last Admin: 11/22/17 12:12 Dose: 25 mls/hr Ketorolac Tromethamine (Toradol) 30 mg IVPUSH ONETIME [facility] Ketorolac Tromethamine (Toradol) 30 mg IM ONETIME ONE Stop: 11/19/17 17:08 Last Admin: 11/19/17 17:20 Dose: 30 mg Magnesium Oxide (Magnesium Oxide) 400 mg PO TID [facility] Stop: 11/21/17 21:01 Last Admin: 11/21/17 21:04 Dose: 400 mg Metoclopramide HCl (Reglan) 10 mg IVPUSH ONETIME ONE Stop: 11/19/17 16:45 Last Admin: 11/19/17 17:26 Dose: Not Given Metoclopramide HCl (Reglan) 10 mg IM ONETIME ONE Stop: 11/19/17 17:08 Last Admin: 11/19/17 17:19 Dose: 10 mg Omeprazole (Omeprazole) 20 mg PO DAILY [facility] Pneumococcal Polyvalent Vaccine (Pneumovax 23) 0.5 ml IM .ONCE ONE Stop: 11/19/17 21:18 Potassium Chloride (Klor-Con M20) 60 meq PO ONETIME ONE Stop: 11/19/17 21:40 Last Admin: 11/19/17 22:27 Dose: 60 meq Potassium Chloride (Klor-Con M20) 40 meq PO Q4H [facility] Stop: 11/21/17 15:01 Last Admin: 11/21/17 14:35 Dose: 40 meq Prednisone (Prednisone) 60 mg PO ONETIME ONE Stop: 11/20/17 08:25 Last Admin: 11/20/17 08:39 Dose: 60 mg Vancomycin HCl (Vancomycin) 2,194.935 mg 15 mg/kg (2194.935 mg) IV Q12H [facility] Last Admin: 11/21/17 11:02 Dose: Not Given - Exam Quality Assessment: DVT Prophylaxis General: Alert, Oriented, Cooperative, No Acute Distress HEENT: Pupils Equal, Pupils Reactive, EOMI, Mucous Membr. Moist/[place] Neck: Supple, Trachea Midline, No JVD Lungs: Clear to Auscultation, Normal Respiratory Effort Cardiovascular: Regular Rate, Regular Rhythm, Other (diminished heart tones ) GI/Abdominal Exam: Normal Bowel Sounds, Soft, Non-Tender, No Organomegaly, No Distention, No Abnormal Bruit, No Mass, Pelvis Stable (Female) Exam: Deferred Back Exam: Normal Inspection, Full Range of Motion Extremities: Normal Inspection, Normal Range of Motion, Non-Tender, No Pedal Edema, Normal Capillary Refill Peripheral Pulses: 2+: Radial (L), Radial (R), Posterior Tibial (L), Posterior Tibial (R), Dorsalis Pedis (L), Dorsalis Pedis (R) Skin: Warm, Dry, Intact Wound/Incisions: Healing Well Neurological: No New Focal Deficit Psy/Mental Status: Alert, Normal Affect, Normal Mood - Problem List & Annotations (1) Joint ache SNOMED Code(s): 71277993 Code(s): M25.50 - PAIN IN UNSPECIFIED JOINT Status: Acute Priority: High Current Visit: Yes Qualifiers: Joint pain location: unspecified Qualified Code(s): M25.50 - Pain in unspecified joint (2) Diabetes type 2, controlled SNOMED Code(s): 36609767 Code(s): E11.9 - TYPE 2 DIABETES MELLITUS WITHOUT COMPLICATIONS Status: Acute Priority: High Current Visit: No Qualifiers: Diabetes mellitus manager long term care insulin use: without manager long term care use Diabetes mellitus complication status: without complication Qualified Code(s): E11.9 - Type 2 diabetes mellitus without complications (3) Bacteremia SNOMED Code(s): 6752319 Code(s): R78.81 - BACTEREMIA Status: Acute Priority: High Current Visit : Yes (4) Metabolic syndrome SNOMED Code(s): 147220464 Code(s): E88.81 - METABOLIC SYNDROME Status: Acute Priority: High Current Visit: Yes (5) Hyponatremia SNOMED Code(s): 66222467 Code(s): E87.1 - HYPO-OSMOLALITY AND HYPONATREMIA Status: Resolved Priority: High Current Visit: Yes (6) Dyslipidemia SNOMED Code(s): 435840760 Code(s): E78.5 - HYPERLIPIDEMIA, UNSPECIFIED Status: Acute Priority: Medium Current Visit: Yes (7) Substance abuse SNOMED Code(s): 68544779 Code(s): F19.10 - OTHER PSYCHOACTIVE SUBSTANCE ABUSE, UNCOMPLICATED Status : Acute Priority: Medium Current Visit: Yes (8) Morbid obesity with BMI of 45.0-49.9, adult SNOMED Code(s): 045457488 Code(s): E66.01 - MORBID (SEVERE) OBESITY DUE TO EXCESS CALORIES; Z68.42 - BODY MASS INDEX (BMI) 45.0-49.9, ADULT Status: Acute Priority: High Current Visit: Yes - Problem List Review Problem List Initiated/Reviewed/Updated: Yes - Plan Plan:: Assessment/Plan: Acute: Bacteremia - Admits to hx/o IVDU - 3/ bottle; Staph Aureus - Reports no prosthetic device - UA is negative for GPC organism - No skin lesions, ulcers or wound on whole body survry - Continue IV Vancomycin for pharmacy to dose--> switch to IV Rocephin - Repeat blood culture obtained today Polyarthralgia Arthritis, improved - Seen in ED initially--> was given oral steroid and narcotic pills - Risk Factor: Morbid Obesity with BMI of 48.6 - RF and Sandoval screening negative - Suspect rheumatologic vs autoimmune disease in etiology - No obvious edema, erythema and non tender to palpation on large joints - Could not appreciate grinding - Pain with active movements - CRP is significantly elevated at 17.8 --> 15.9--> 10; ESR 80--> 70 - Antic-CCP (send out), EBV, CMV, Enterovirus, Adenovirus, Alphavirus, Hepatitis Panel, HSV 1 and 2, Varicella, HHV 6, Parvo B19 virus, and Tick Borne Disease work up- all pending (patient aware this may take sometime -could be over week before we get the results back) - Refused HIV screening this AM; she states she was tested Thursday in [facility] pending result - Continue Prednisone 60 mg po daily Asymptomatic Bacteruria - UA CX pos for E. coli and resistant to Quinolones - Recommend no treatment New Onset of DM2 - BS may get worse due to steroid therapy - A1C 7.40 - Continue Metformin 500 mg po BID, Glipizide 5 mg po BID and ISS coverage - Accu-check QID AC and HS - She may benefit with Jardiance and Victoza (Cardiovascular benefit and weight loss) - Lipid panel shows significantly low HDL level but Microalbuminemia is negative - Continue low dose ASA and ACEI Dyslipidemia - HLD is 16 - At this point, I would recommend LSM - Dietary consult for proper diet Metabolic Syndrome - Abdominal Obesity, DM2; Low HDL level - Goal: LSM to lose weight Hypomagnesemia, Improved - Mg 1.4--> 1.5 - 2/2 inadequate intake - Replete and monitor Substance Abuse - UDs is pos for THC and Oxy - Counseled on elicit drug use; also discouraged combo use of narcotics and marijuana for pain control Morbid Obesity - Informed patient excess weight is contributory to her acute illness - Advised LSM - She carries no hx/o valvulopathy; she may benefit with Belviq 10 mg po daily after discharge (hospital don't carry it) - Dietary consult for weight Management Resolved: S/p Hypokalemia - K 3.1 --> 3.9--> 3.4--> 4.0 - Unclear at this point; she is not on loop diuretic and no hx/o uncontrolled hypertension - Replete and monitor Hyponatremia - Na 128 --> 132--> 133--> 134-->141 - Unclear at this point; she is not on thiazide - Resume thermotabs po BID--> stop - Replete and monitor Plan: She continues to improve both clinically and from a lab standpoint Continue oral steroid for anti-inflammatory, PT/OT consult, and debubblizer consult Routine AM Labs Tick Born Disease/Viral Panel and and Anti-CCP- all pending (patient aware tests may take a while for results to come back) 2D Echo obtained - pending results Rheumatology referral after discharge SW/CM for d/c planning Home medications as ordered Additional orders as above Code Status: 1 <Eber Urbano T - Last Filed: 11/23/17 16:47> - Patient Data Vitals - Most Recent: Last Vital Signs Temp 36.9 C 11/23/17 07:38 Pulse 85 11/23/17 09:45 Resp 16 11/23/17 09:45 BP 121/62 11/23/17 10:15 Pulse Ox 97 11/23/17 09:45 I&O - Last 24 Hours: Intake & Output 11/23/17 11/23/17 11/23/17 06:59 14:59 22:59 Intake Total 400 240 500 Balance 400 240 500 Lab Results Last 24 Hours: Laboratory Results - last 24 hr 11/22/17 11/23/17 11/23/17 Range/Units 21:47 05:10 05:43 WBC 10.54 H (3.98-10.04) K/mm3 RBC 3.81 L (3.98-5.22) M/mm3 Hgb 10.7 L (11.2-15.7) gm/L Hct 33.3 L (34.1-44.9) % MCV 87.4 (79.4-94.8) fl MCH 28.1 (25.6-32.2) pg MCHC 32.1 L (32.2-35.5) g/dl RDW Std Deviation 46.4 H (36.4-46.3) fL Plt Count 197 (182-369) K/mm3 MPV 10.2 (9.4-12.3) fl Neut % (Auto) 71.9 H (34.0-71.1) % Lymph % (Auto) 18.0 L (19.3-51.7) % Sandoval % (Auto) 8.9 (4.7-12.5) % Eos % (Auto) 0.5 L (0.7-5.8) Baso % (Auto) 0.1 (0.1-1.2) % Neut # (Auto) 7.58 H (1.56-6.13) K/mm3 Lymph # (Auto) 1.90 (1.18-3.74) K/mm3 Sandoval # (Auto) 0.94 H (0.24-0.36) K/mm3 Eos # (Auto) 0.05 (0.04-0.36) K/mm3 Baso # (Auto) 0.01 (0.01-0.08) K/mm3 ESR (0-20) mm/hr Sodium (136-145) mEq/L Potassium (3.5-5.1) mEq/L Chloride (98-107) mEq/L Carbon Dioxide (21-32) mEq/L Anion Gap (5-15) BUN (7-18) mg/dL Creatinine (0.55-1.02) mg/dL Est Cr Clr Drug Dosing mL/min Estimated GFR (MDRD) (>60) mL/min BUN/Creatinine Ratio (14-18) Glucose (74-106) mg/dL POC Glucose 193 H 72 (70-105) mg/dL Calcium (8.5-10.1) mg/dL Magnesium (1.8-2.4) mg/dl C-Reactive Protein (<1.0) mg/dL 11/23/17 11/23/17 11/23/17 Range/Units 05:43 05:43 10:13 WBC (3.98-10.04) K/mm3 RBC (3.98-5.22) M/mm3 Hgb (11.2-15.7) gm/L Hct (34.1-44.9) % MCV (79.4-94.8) fl MCH (25.6-32.2) pg MCHC (32.2-35.5) g/dl RDW Std Deviation (36.4-46.3) fL Plt Count (182-369) K/mm3 MPV (9.4-12.3) fl Neut % (Auto) (34.0-71.1) % Lymph % (Auto) (19.3-51.7) % Sandoval % (Auto) (4.7-12.5) % Eos % (Auto) (0.7-5.8) Baso % (Auto) (0.1-1.2) % Neut # (Auto) (1.56-6.13) K/mm3 Lymph # (Auto) (1.18-3.74) K/mm3 [place] # (Auto) (0.24-0.36) K/mm3 Eos # (Auto) (0.04-0.36) K/mm3 Baso # (Auto) (0.01-0.08) K/mm3 ESR 51 H (0-20) mm/hr Sodium 141 (136-145) mEq/L Potassium 3.6 (3.5-5.1) mEq/L Chloride 108 H (98-107) mEq/L Carbon Dioxide 24 (21-32) mEq/L Anion Gap 12.6 (5-15) BUN 9 (7-18) mg/dL Creatinine 0.7 (0.55-1.02) mg/dL Est Cr Clr Drug Dosing 111.65 mL/min Estimated GFR (MDRD) > 60 (>60) mL/min BUN/Creatinine Ratio 12.9 L (14-18) Glucose 92 (74-106) mg/dL POC Glucose 188 H (70-105) mg/dL Calcium 8.2 L (8.5-10.1) mg/dL Magnesium 1.9 (1.8-2.4) mg/dl C-Reactive Protein 8.2 H* (<1.0) mg/dL 11/23/17 Range/Units 11:48 WBC (3.98-10.04) K/mm3 RBC (3.98-5.22) M/mm3 Hgb (11.2-15.7) gm/L Hct (34.1-44.9) % MCV (79.4-94.8) fl MCH (25.6-32.2) pg MCHC (32.2-35.5) g/dl RDW Std Deviation (36.4-46.3) fL Plt Count (182-369) K/mm3 MPV (9.4-12.3) fl Neut % (Auto) (34.0-71.1) % Lymph % (Auto) (19.3-51.7) % [place] % (Auto) (4.7-12.5) % Eos % (Auto) (0.7-5.8) Baso % (Auto) (0.1-1.2) % Neut # (Auto) (1.56-6.13) K/mm3 Lymph # (Auto) (1.18-3.74) K/mm3 [place] # (Auto) (0.24-0.36) K/mm3 Eos # (Auto) (0.04-0.36) K/mm3 Baso # (Auto) (0.01-0.08) K/mm3 ESR (0-20) mm/hr Sodium (136-145) mEq/L Potassium (3.5-5.1) mEq/L Chloride (98-107) mEq/L Carbon Dioxide (21-32) mEq/L Anion Gap (5-15) BUN (7-18) mg/dL Creatinine (0.55-1.02) mg/dL Est Cr Clr Drug Dosing mL/min Estimated GFR (MDRD) (>60) mL/min BUN/Creatinine Ratio (14-18) Glucose (74-106) mg/dL POC Glucose 210 H (70-105) mg/dL Calcium (8.5-10.1) mg/dL Magnesium (1.8-2.4) mg/dl C-Reactive Protein (<1.0) mg/dL Gurpreet Results Last 24 Hours: Microbiology 11/22/17 23:24 Aerobic Blood Culture - Preliminary Blood - Venous - Lab Draw Gram Positive Cocci 11/19/17 17:25 Aerobic Blood Culture - Final Blood - Venous Staphylococcus Aureus Anaerobic Blood Culture - Final Staphylococcus Aureus 11/22/17 23:18 Anaerobic Blood Culture - Final Blood - Venous Med Orders - Current: Current Medications Acetaminophen (Tylenol) 650 mg PO Q4H PRN PRN Reason: Pain (Mild 1-3)/fever Hydrocodone Bitart/Acetaminophen ([place] 325-5 Mg) 1 tab PO Q4H PRN PRN Reason: Pain (moderate 4-6) Last Admin: 11/23/17 13:01 Dose: 1 tab Albuterol/Ipratropium (Duoneb 3.0-0.5 Mg/3 Ml) 3 ml NEB Q4H PRN PRN Reason: Shortness Of Breath/wheezing Aspirin (Aspirin) 81 mg PO DAILY [facility] Last Admin: 11/23/17 10:16 Dose: 81 mg Bisacodyl (Dulcolax) 5 mg PO DAILY PRN PRN Reason: Constipation Dextrose/Water (Dextrose 50% In Water) 50 ml IVPUSH ASDIRECTED PRN PRN Reason: Hypoglycemia Docusate Sodium (Colace) 100 mg PO BID PRN PRN Reason: Constipation Last Admin: 11/20/17 08:42 Dose: 100 mg Glipizide (Glucotrol Xl) 5 mg PO BID [facility] Last Admin: 11/23/17 10:15 Dose: 5 mg Hydralazine HCl (Apresoline) 20 mg IVPUSH Q4H PRN PRN Reason: Hypertension Hydromorphone HCl (Dilaudid) 0.25 mg IVPUSH Q2H PRN PRN Reason: Pain (severe 7-10) Last Admin: 11/23/17 10:35 Dose: 0.25 mg Promethazine HCl 12.5 mg/ (Sodium Chloride) 50.5 mls @ 100 mls/hr IV Q6H PRN PRN Reason: Nausea/Vomiting Sodium Chloride (Normal Saline) 1,000 mls @ 100 mls/hr IV ASDIRECTED [facility] Last Admin: 11/23/17 13:02 Dose: 100 mls/hr Ceftriaxone Sodium 1 gm/ (Sodium Chloride) 100 mls @ 200 mls/hr IV Q24H [facility] Last Admin: 11/23/17 16:14 Dose: 200 mls/hr Insulin Aspart (Novolog) 0 unit SUBCUT QIDACANDBED [facility]; Protocol Last Admin: 11/23/17 13:01 Dose: 2 unit Lisinopril (Prinivil) 10 mg PO DAILY [facility] Last Admin: 11/23/17 10:15 Dose: 10 mg Lorazepam (Ativan) 2 mg IVPUSH Q4H PRN PRN Reason: Seizures Lorazepam (Ativan) 1 mg IV Q6H PRN PRN Reason: Anxiety Last Admin: 11/21/17 21:24 Dose: 1 mg Magnesium Sulfate (Pharmacy To Dose - Magnesium Replacement) 0 dose .XX ASDIRECTED PRN PRN Reason: RX TO WATCH MAG LEVELS Metformin HCl (Glucophage) 500 mg PO DAILY [facility] Last Admin: 11/23/17 10:16 Dose: 500 mg Metoprolol Tartrate (Lopressor) 5 mg IVPUSH Q4H PRN PRN Reason: Tachycardia Ondansetron HCl (Zofran Odt) 4 mg PO Q6H PRN PRN Reason: Nausea\\vomiting Ondansetron HCl (Zofran) 4 mg IV Q6H PRN PRN Reason: Nausea/Vomiting Pantoprazole Sodium (Protonix) 40 mg PO DAILY@0700 [facility] Last Admin: 11/23/17 06:04 Dose: 40 mg Polyethylene Glycol (Miralax) 17 gm PO DAILY PRN PRN Reason: Constipation Potassium Chloride (Klor-Con M20) 20 meq PO DAILY [facility] Last Admin: 11/23/17 10:16 Dose: 20 meq Potassium Chloride (Pharmacy To Dose - Potassium Replacement) 0 dose .XX ASDIRECTED PRN PRN Reason: RX TO WATCH Prednisone (Prednisone) 60 mg PO WITHBREAKFAST [facility] Last Admin: 11/23/17 06:03 Dose: 60 mg Saccharomyces Boulardii (Florastor) 250 mg PO BID [facility] Last Admin: 11/23/17 10:14 Dose: 250 mg Senna/Docusate Sodium (Senna Plus) 1 tab PO BID PRN PRN Reason: Constipation Temazepam (Restoril) 15 mg PO BEDTIME PRN PRN Reason: Sleep Discontinued Medications Hydromorphone HCl (Dilaudid) 1 mg IVPUSH ONETIME ONE Stop: 11/19/17 16:45 Last Admin: 11/19/17 17:25 Dose: Not Given Hydromorphone HCl (Dilaudid) 1 mg IM ONETIME ONE Stop: 11/19/17 17:07 Last Admin: 11/19/17 17:26 Dose: Not Given Hydromorphone HCl (Dilaudid) 1 mg IM ONETIME ONE Stop: 11/19/17 17:11 Last Admin: 11/19/17 17:21 Dose: 1 mg Sodium Chloride (Normal Saline) 1,000 mls @ 500 mls/hr IV ASDIRECTED NICOLE Sodium Chloride (Normal Saline) 1,000 mls @ 999 mls/hr IV ASDIRECTED NICOLE Last Admin: 11/19/17 18:41 Dose: 999 mls/hr Potassium Chloride 10 meq/ (Premix) 100 mls @ 100 mls/hr IV ASDIRECTED STA Stop: 11/19/17 19:31 Last Admin: 11/19/17 18:41 Dose: 100 mls/hr Potassium Chloride 10 meq/ (Premix) 100 mls @ 100 mls/hr IV ONETIME ONE Stop: 11/19/17 19:32 Last Admin: 11/19/17 21:49 Dose: Not Given Potassium Chloride 10 meq/ (Premix) 100 mls @ 100 mls/hr IV Q1H [facility] Stop: 11/20/17 01:29 Last Admin: 11/19/17 21:50 Dose: Not Given Vancomycin HCl 2 gm/ Sodium (Chloride) 500 mls @ 250 mls/hr IV ONETIME ONE Stop: 11/21/17 11:59 Last Admin: 11/21/17 11:31 Dose: 250 mls/hr Vancomycin HCl 1 gm/Vancomycin HCl 500 mg/ Sodium Chloride 500 mls @ 333.025 mls/hr IV Q12H [facility] Vancomycin HCl 1.5 gm/ Sodium (Chloride) 500 mls @ 330 mls/hr IV Q8H [facility] Last Admin: 11/22/17 06:45 Dose: 330 mls/hr Vancomycin HCl 1.5 gm/ Sodium (Chloride) 500 mls @ 330 mls/hr IV Q8H [facility] Last Admin: 11/23/17 06:07 Dose: 330 mls/hr Magnesium Sulfate 2 gm/ Premix 50 mls @ 25 mls/hr IV ONETIME ONE Stop: 11/22/17 12:29 Last Admin: 11/22/17 12:12 Dose: 25 mls/hr Ketorolac Tromethamine (Toradol) 30 mg IVPUSH ONETIME [facility] Ketorolac Tromethamine (Toradol) 30 mg IM ONETIME ONE Stop: 11/19/17 17:08 Last Admin: 11/19/17 17:20 Dose: 30 mg Magnesium Oxide (Magnesium Oxide) 400 mg PO TID NICOLE Stop: 11/21/17 21:01 Last Admin: 11/21/17 21:04 Dose: 400 mg Metoclopramide HCl (Reglan) 10 mg IVPUSH ONETIME ONE Stop: 11/19/17 16:45 Last Admin: 11/19/17 17:26 Dose: Not Given Metoclopramide HCl (Reglan) 10 mg IM ONETIME ONE Stop: 11/19/17 17:08 Last Admin: 11/19/17 17:19 Dose: 10 mg Omeprazole (Omeprazole) 20 mg PO DAILY [facility] Oral Electrolytes (Thermotabs) 2 each PO BID [facility] Last Admin: 11/23/17 10:16 Dose: 2 each Pneumococcal Polyvalent Vaccine (Pneumovax 23) 0.5 ml IM .ONCE ONE Stop: 11/19/17 21:18 Potassium Chloride (Klor-Con M20) 60 meq PO ONETIME ONE Stop: 11/19/17 21:40 Last Admin: 11/19/17 22:27 Dose: 60 meq Potassium Chloride (Klor-Con M20) 40 meq PO Q4H [facility] Stop: 11/21/17 15:01 Last Admin: 11/21/17 14:35 Dose: 40 meq Prednisone (Prednisone) 60 mg PO ONETIME ONE Stop: 11/20/17 08:25 Last Admin: 11/20/17 08:39 Dose: 60 mg Vancomycin HCl (Vancomycin) 2,194.935 mg 15 mg/kg (2194.935 mg) IV Q12H [facility] Last Admin: 11/21/17 11:02 Dose: Not Given Vancomycin HCl (Pharmacy To Dose - Vancomycin) 0 dose .XX ASDIRECTED PRN PRN Reason: RX TO DOSE VANCOMYCIN - Problem List Review Problem List Initiated/Reviewed/Updated: Yes - My Orders Last 24 Hours: My Active Orders 11/22/17 23:01 Blood Culture x2 Reflex Set [OM.PC] Stat 11/22/17 23:18 CULTURE BLOOD [BC] Stat 11/22/17 23:24 CULTURE BLOOD [BC] Stat 11/23/17 16:00 cefTRIAXone [Rocephin] 1 gm Sodium Chloride 0.9% [Normal Saline] 100 ml IV Q24H 11/24/17 05:11 BASIC METABOLIC PANEL,BMP [CHEM] AM CBC WITH AUTO DIFF [HEME] AM CRP [C-REACTIVE PROTEIN] [CHEM] AM ESR [SEDIMENTATION RATE AUTO] [HEME] AM MAGNESIUM [CHEM] AM 11/25/17 05:11 CRP [C-REACTIVE PROTEIN] [CHEM] AM ESR [SEDIMENTATION RATE AUTO] [HEME] AM 11/26/17 05:11 CRP [C-REACTIVE PROTEIN] [CHEM] AM ESR [SEDIMENTATION RATE AUTO] [HEME] AM - Plan Plan:: Patient repeat blood is still pos for GPC per Microbiology. 2D echo completed. Will continue with intravenous anti-biotic treatment.
[2017-11-23] MEDS: Saccharomyces Boulardii (Probiotic) 250 MG Cap PO SCH ×2 (10:14→21:50)
[2017-11-23] MEDS: glipiZIDE 5 MG Tab.ER PO SCH ×2 (10:15→21:50)
[2017-11-23] MEDS: Lisinopril 10 MG Tab PO SCH (10:15)
[2017-11-23] MEDS: Potassium Chloride 20 MEQ Tab.ER PO SCH (10:16)
[2017-11-23] MEDS: Aspirin 81 MG Tab.Chew PO SCH (10:16)
[2017-11-23] MEDS: Potassium Chloride/Sodium Chloride Tab PO SCH (10:16)
[2017-11-23] MEDS: metFORMIN 500 MG Tab PO SCH (10:16)
[2017-11-23] MEDS: HYDROmorphone 0.5 MG/0.5 ML SYRINGE IVPUSH PRN (10:35)
[2017-11-23] MEDS: Sodium Chloride 0.9% 1,000 ML IV SCH (13:02)
[2017-11-23] MEDS ORDERED: cefTRIAXone 1 GM in Sodium Chloride 0.9% 100 ML IV SCH (16:00)
[2017-11-24] MEDS: HYDROmorphone 0.5 MG/0.5 ML SYRINGE IVPUSH PRN ×3 (00:36→11:40)
[2017-11-24] MEDS: Sodium Chloride 0.9% 1,000 ML IV SCH ×2 (00:39→12:28)
[2017-11-24] MEDS: Acetaminophen/HYDROcodone 325-5 MG Tab PO PRN ×2 (06:23→11:40)
[2017-11-24] MEDS: Pantoprazole 40 MG Tab.CR PO SCH (06:45)
[2017-11-24] MEDS: predniSONE 20 MG Tab PO SCH (06:45)
[2017-11-24] MEDS: Insulin Aspart 100 Units/ML 3 ML Pen SUBCUT SCH ×2 (08:00→11:43)
[2017-11-24] MEDS: Aspirin 81 MG Tab.Chew PO SCH (09:16)
[2017-11-24] MEDS: Lisinopril 10 MG Tab PO SCH (09:16)
[2017-11-24] MEDS: Saccharomyces Boulardii (Probiotic) 250 MG Cap PO SCH (09:16)
[2017-11-24] MEDS: Potassium Chloride 20 MEQ Tab.ER PO SCH (09:17)
[2017-11-24] MEDS: glipiZIDE 5 MG Tab.ER PO SCH (09:17)
[2017-11-24] MEDS: metFORMIN 500 MG Tab PO SCH (09:17)
--- NOTE | 2017-11-24 09:49 | PCM.PN ---
- General Info Date of Service: 11/24/17 Admission Dx/Problem (Free Text): Admission Diagnosis/Problem Admission Diagnosis/Problem Hyponatremia Subjective Update: In to see Bela. She is lying in bed watching TV. She reports some non- specific right leg pain which has since resolved. She was reportedly given a "pain pill" which took the pain away. No complaints or concerns. Her labs continue to improve. She was seen by a dietitian today. Will encourage more ambulation. Functional Status: Reports: Pain Controlled, Tolerating Diet, Ambulating - Patient Data Vitals - Most Recent: Last Vital Signs Temp 36.3 C 11/24/17 09:14 Pulse 93 11/24/17 09:14 Resp 16 11/24/17 09:14 BP 131/81 11/24/17 09:16 Pulse Ox 97 11/24/17 09:14 Weight - Most Recent: 145.649 kg I&O - Last 24 Hours: Intake & Output 11/23/17 11/24/17 11/24/17 22:59 06:59 14:59 Intake Total 3270 1585 Balance 3270 1585 Lab Results Last 24 Hours: Laboratory Results - last 24 hr 11/19/17 11/19/17 11/20/17 Range/Units 06:25 06:25 06:25 WBC (3.98-10.04) K/mm3 RBC (3.98-5.22) M/mm3 Hgb (11.2-15.7) gm/L Hct (34.1-44.9) % MCV (79.4-94.8) fl MCH (25.6-32.2) pg MCHC (32.2-35.5) g/dl RDW Std Deviation (36.4-46.3) fL Plt Count (182-369) K/mm3 MPV (9.4-12.3) fl Neut % (Auto) (34.0-71.1) % Lymph % (Auto) (19.3-51.7) % [place] % (Auto) (4.7-12.5) % Eos % (Auto) (0.7-5.8) Baso % (Auto) (0.1-1.2) % Neut # (Auto) (1.56-6.13) K/mm3 Lymph # (Auto) (1.18-3.74) K/mm3 [place] # (Auto) (0.24-0.36) K/mm3 Eos # (Auto) (0.04-0.36) K/mm3 Baso # (Auto) (0.01-0.08) K/mm3 Manual Slide Review ESR (0-20) mm/hr Sodium (136-145) mEq/L Potassium (3.5-5.1) mEq/L Chloride (98-107) mEq/L Carbon Dioxide (21-32) mEq/L Anion Gap (5-15) BUN (7-18) mg/dL Creatinine (0.55-1.02) mg/dL Est Cr Clr Drug Dosing mL/min Estimated GFR (MDRD) (>60) mL/min BUN/Creatinine Ratio (14-18) Glucose (74-106) mg/dL POC Glucose (70-105) mg/dL Calcium (8.5-10.1) mg/dL Magnesium (1.8-2.4) mg/dl C-Reactive Protein (<1.0) mg/dL CMV IgG Ab Positive H (NEG) CMV IgM Ab Negative (NEG) EBV Capsid Ag IgG Ab Positive H (NEG) EBV Capsid Ag IgM Ab Negative (NEG) EBV Early Ag Ab Diffuse Negative (NEG) EBV Nuclear Ag IgG Ab Positive H (NEG) Ref Lab Test Name Evpcr Ref Lab Test Result See below Ref Test Perform Site Pml 11/23/17 11/23/17 11/23/17 Range/Units 10:13 11:48 17:24 WBC (3.98-10.04) K/mm3 RBC (3.98-5.22) M/mm3 Hgb (11.2-15.7) gm/L Hct (34.1-44.9) % MCV (79.4-94.8) fl MCH (25.6-32.2) pg MCHC (32.2-35.5) g/dl RDW Std Deviation (36.4-46.3) fL Plt Count (182-369) K/mm3 MPV (9.4-12.3) fl Neut % (Auto) (34.0-71.1) % Lymph % (Auto) (19.3-51.7) % [place] % (Auto) (4.7-12.5) % Eos % (Auto) (0.7-5.8) Baso % (Auto) (0.1-1.2) % Neut # (Auto) (1.56-6.13) K/mm3 Lymph # (Auto) (1.18-3.74) K/mm3 [place] # (Auto) (0.24-0.36) K/mm3 Eos # (Auto) (0.04-0.36) K/mm3 Baso # (Auto) (0.01-0.08) K/mm3 Manual Slide Review ESR (0-20) mm/hr Sodium (136-145) mEq/L Potassium (3.5-5.1) mEq/L Chloride (98-107) mEq/L Carbon Dioxide (21-32) mEq/L Anion Gap (5-15) BUN (7-18) mg/dL Creatinine (0.55-1.02) mg/dL Est Cr Clr Drug Dosing mL/min Estimated GFR (MDRD) (>60) mL/min BUN/Creatinine Ratio (14-18) Glucose (74-106) mg/dL POC Glucose 188 H 210 H 202 H (70-105) mg/dL Calcium (8.5-10.1) mg/dL Magnesium (1.8-2.4) mg/dl C-Reactive Protein (<1.0) mg/dL CMV IgG Ab (NEG) CMV IgM Ab (NEG) EBV Capsid Ag IgG Ab (NEG) EBV Capsid Ag IgM Ab (NEG) EBV Early Ag Ab Diffuse (NEG) EBV Nuclear Ag IgG Ab (NEG) Ref Lab Test Name Ref Lab Test Result Ref Test Perform Site 11/23/17 11/24/17 11/24/17 Range/Units 21:46 06:35 06:35 WBC 10.85 H (3.98-10.04) K/mm3 RBC 3.76 L (3.98-5.22) M/mm3 Hgb 10.7 L (11.2-15.7) gm/L Hct 32.8 L (34.1-44.9) % MCV 87.2 (79.4-94.8) fl MCH 28.5 (25.6-32.2) pg MCHC 32.6 (32.2-35.5) g/dl RDW Std Deviation 47.1 H (36.4-46.3) fL Plt Count 200 (182-369) K/mm3 MPV 10.3 (9.4-12.3) fl Neut % (Auto) 73.0 H (34.0-71.1) % Lymph % (Auto) 19.0 L (19.3-51.7) % [place] % (Auto) 6.6 (4.7-12.5) % Eos % (Auto) 0.4 L (0.7-5.8) Baso % (Auto) 0.1 (0.1-1.2) % Neut # (Auto) 7.92 H (1.56-6.13) K/mm3 Lymph # (Auto) 2.06 (1.18-3.74) K/mm3 [place] # (Auto) 0.72 H (0.24-0.36) K/mm3 Eos # (Auto) 0.04 (0.04-0.36) K/mm3 Baso # (Auto) 0.01 (0.01-0.08) K/mm3 Manual Slide Review Normal smear ESR (0-20) mm/hr Sodium 136 (136-145) mEq/L Potassium 3.6 (3.5-5.1) mEq/L Chloride 106 (98-107) mEq/L Carbon Dioxide 23 (21-32) mEq/L Anion Gap 10.6 (5-15) BUN 9 (7-18) mg/dL Creatinine 0.7 (0.55-1.02) mg/dL Est Cr Clr Drug Dosing 111.65 mL/min Estimated GFR (MDRD) > 60 (>60) mL/min BUN/Creatinine Ratio 12.9 L (14-18) Glucose 78 (74-106) mg/dL POC Glucose 116 H (70-105) mg/dL Calcium 8.3 L (8.5-10.1) mg/dL Magnesium 1.8 (1.8-2.4) mg/dl C-Reactive Protein 5.2 H* (<1.0) mg/dL CMV IgG Ab (NEG) CMV IgM Ab (NEG) EBV Capsid Ag IgG Ab (NEG) EBV Capsid Ag IgM Ab (NEG) EBV Early Ag Ab Diffuse (NEG) EBV Nuclear Ag IgG Ab (NEG) Ref Lab Test Name Ref Lab Test Result Ref Test Perform Site 05/01/18 05/01/18 Range/Units 06:35 06:40 WBC (3.98-10.04) K/mm3 RBC (3.98-5.22) M/mm3 Hgb (11.2-15.7) gm/L Hct (34.1-44.9) % MCV (79.4-94.8) fl MCH (25.6-32.2) pg MCHC (32.2-35.5) g/dl RDW Std Deviation (36.4-46.3) fL Plt Count (182-369) K/mm3 MPV (9.4-12.3) fl Neut % (Auto) (34.0-71.1) % Lymph % (Auto) (19.3-51.7) % [place] % (Auto) (4.7-12.5) % Eos % (Auto) (0.7-5.8) Baso % (Auto) (0.1-1.2) % Neut # (Auto) (1.56-6.13) K/mm3 Lymph # (Auto) (1.18-3.74) K/mm3 [place] # (Auto) (0.24-0.36) K/mm3 Eos # (Auto) (0.04-0.36) K/mm3 Baso # (Auto) (0.01-0.08) K/mm3 Manual Slide Review ESR 50 H (0-20) mm/hr Sodium (136-145) mEq/L Potassium (3.5-5.1) mEq/L Chloride (98-107) mEq/L Carbon Dioxide (21-32) mEq/L Anion Gap (5-15) BUN (7-18) mg/dL Creatinine (0.55-1.02) mg/dL Est Cr Clr Drug Dosing mL/min Estimated GFR (MDRD) (>60) mL/min BUN/Creatinine Ratio (14-18) Glucose (74-106) mg/dL POC Glucose 70 (70-105) mg/dL Calcium (8.5-10.1) mg/dL Magnesium (1.8-2.4) mg/dl C-Reactive Protein (<1.0) mg/dL CMV IgG Ab (NEG) CMV IgM Ab (NEG) EBV Capsid Ag IgG Ab (NEG) EBV Capsid Ag IgM Ab (NEG) EBV Early Ag Ab Diffuse (NEG) EBV Nuclear Ag IgG Ab (NEG) Ref Lab Test Name Ref Lab Test Result Ref Test Perform Site Gurpreet Results Last 24 Hours: Microbiology 11/22/17 23:24 Aerobic Blood Culture - Preliminary Blood - Venous - Lab Draw Gram Positive Cocci Anaerobic Blood Culture - Preliminary NO GROWTH AFTER 1 DAY 11/22/17 23:18 Aerobic Blood Culture - Preliminary Blood - Venous Gram Positive Cocci Anaerobic Blood Culture - Final 11/19/17 17:25 Aerobic Blood Culture - Final Blood - Venous Staphylococcus Aureus Anaerobic Blood Culture - Final Staphylococcus Aureus Med Orders - Current: Current Medications Acetaminophen (Tylenol) 650 mg PO Q4H PRN PRN Reason: Pain (Mild 1-3)/fever Hydrocodone Bitart/Acetaminophen ([place] 325-5 Mg) 1 tab PO Q4H PRN PRN Reason: Pain (moderate 4-6) Last Admin: 11/24/17 06:23 Dose: 1 tab Albuterol/Ipratropium (Duoneb 3.0-0.5 Mg/3 Ml) 3 ml NEB Q4H PRN PRN Reason: Shortness Of Breath/wheezing Aspirin (Aspirin) 81 mg PO DAILY [facility] Last Admin: 11/24/17 09:16 Dose: 81 mg Bisacodyl (Dulcolax) 5 mg PO DAILY PRN PRN Reason: Constipation Dextrose/Water (Dextrose 50% In Water) 50 ml IVPUSH ASDIRECTED PRN PRN Reason: Hypoglycemia Docusate Sodium (Colace) 100 mg PO BID PRN PRN Reason: Constipation Last Admin: 11/20/17 08:42 Dose: 100 mg Enoxaparin Sodium (Lovenox) 150 mg SUBCUT Q12H [facility] Glipizide (Glucotrol Xl) 5 mg PO BID [facility] Last Admin: 11/24/17 09:17 Dose: 5 mg Hydralazine HCl (Apresoline) 20 mg IVPUSH Q4H PRN PRN Reason: Hypertension Hydromorphone HCl (Dilaudid) 0.25 mg IVPUSH Q2H PRN PRN Reason: Pain (severe 7-10) Last Admin: 11/24/17 06:22 Dose: 0.25 mg Promethazine HCl 12.5 mg/ (Sodium Chloride) 50.5 mls @ 100 mls/hr IV Q6H PRN PRN Reason: Nausea/Vomiting Sodium Chloride (Normal Saline) 1,000 mls @ 100 mls/hr IV ASDIRECTED [facility] Last Admin: 11/24/17 00:39 Dose: 100 mls/hr Insulin Aspart (Novolog) 0 unit SUBCUT QIDACANDBED [facility]; Protocol Last Admin: 11/24/17 08:00 Dose: Not Given Lisinopril (Prinivil) 10 mg PO DAILY [facility] Last Admin: 11/24/17 09:16 Dose: 10 mg Lorazepam (Ativan) 2 mg IVPUSH Q4H PRN PRN Reason: Seizures Lorazepam (Ativan) 1 mg IV Q6H PRN PRN Reason: Anxiety Last Admin: 11/21/17 21:24 Dose: 1 mg Magnesium Sulfate (Pharmacy To Dose - Magnesium Replacement) 0 dose .XX ASDIRECTED PRN PRN Reason: RX TO WATCH MAG LEVELS Metformin HCl (Glucophage) 500 mg PO DAILY [facility] Last Admin: 11/24/17 09:17 Dose: 500 mg Metoprolol Tartrate (Lopressor) 5 mg IVPUSH Q4H PRN PRN Reason: Tachycardia Ondansetron HCl (Zofran Odt) 4 mg PO Q6H PRN PRN Reason: Nausea\\vomiting Ondansetron HCl (Zofran) 4 mg IV Q6H PRN PRN Reason: Nausea/Vomiting Pantoprazole Sodium (Protonix) 40 mg PO DAILY@0700 [facility] Last Admin: 11/24/17 06:45 Dose: 40 mg Polyethylene Glycol (Miralax) 17 gm PO DAILY PRN PRN Reason: Constipation Potassium Chloride (Klor-Con M20) 20 meq PO DAILY [facility] Last Admin: 11/24/17 09:17 Dose: 20 meq Potassium Chloride (Pharmacy To Dose - Potassium Replacement) 0 dose .XX ASDIRECTED PRN PRN Reason: RX TO WATCH Prednisone (Prednisone) 60 mg PO WITHBREAKFAST [facility] Last Admin: 11/24/17 06:45 Dose: 60 mg Saccharomyces Boulardii (Florastor) 250 mg PO BID [facility] Last Admin: 11/24/17 09:16 Dose: 250 mg Senna/Docusate Sodium (Senna Plus) 1 tab PO BID PRN PRN Reason: Constipation Temazepam (Restoril) 15 mg PO BEDTIME PRN PRN Reason: Sleep Last Admin: 11/23/17 22:36 Dose: 15 mg Discontinued Medications Hydromorphone HCl (Dilaudid) 1 mg IVPUSH ONETIME ONE Stop: 11/19/17 16:45 Last Admin: 11/19/17 17:25 Dose: Not Given Hydromorphone HCl (Dilaudid) 1 mg IM ONETIME ONE Stop: 11/19/17 17:07 Last Admin: 11/19/17 17:26 Dose: Not Given Hydromorphone HCl (Dilaudid) 1 mg IM ONETIME ONE Stop: 11/19/17 17:11 Last Admin: 11/19/17 17:21 Dose: 1 mg Sodium Chloride (Normal Saline) 1,000 mls @ 500 mls/hr IV ASDIRECTED NICOLE Sodium Chloride (Normal Saline) 1,000 mls @ 999 mls/hr IV ASDIRECTED NICOLE Last Admin: 11/19/17 18:41 Dose: 999 mls/hr Potassium Chloride 10 meq/ (Premix) 100 mls @ 100 mls/hr IV ASDIRECTED [facility] Stop: 11/19/17 19:31 Last Admin: 11/19/17 18:41 Dose: 100 mls/hr Potassium Chloride 10 meq/ (Premix) 100 mls @ 100 mls/hr IV ONETIME ONE Stop: 11/19/17 19:32 Last Admin: 11/19/17 21:49 Dose: Not Given Potassium Chloride 10 meq/ (Premix) 100 mls @ 100 mls/hr IV Q1H [facility] Stop: 11/20/17 01:29 Last Admin: 11/19/17 21:50 Dose: Not Given Vancomycin HCl 2 gm/ Sodium (Chloride) 500 mls @ 250 mls/hr IV ONETIME ONE Stop: 11/21/17 11:59 Last Admin: 11/21/17 11:31 Dose: 250 mls/hr Vancomycin HCl 1 gm/Vancomycin HCl 500 mg/ Sodium Chloride 500 mls @ 333.025 mls/hr IV Q12H [facility] Vancomycin HCl 1.5 gm/ Sodium (Chloride) 500 mls @ 330 mls/hr IV Q8H [facility] Last Admin: 11/22/17 06:45 Dose: 330 mls/hr Vancomycin HCl 1.5 gm/ Sodium (Chloride) 500 mls @ 330 mls/hr IV Q8H [facility] Last Admin: 11/23/17 06:07 Dose: 330 mls/hr Magnesium Sulfate 2 gm/ Premix 50 mls @ 25 mls/hr IV ONETIME ONE Stop: 11/22/17 12:29 Last Admin: 11/22/17 12:12 Dose: 25 mls/hr Ceftriaxone Sodium 1 gm/ (Sodium Chloride) 100 mls @ 200 mls/hr IV Q24H [facility] Last Admin: 11/23/17 16:14 Dose: 200 mls/hr Ketorolac Tromethamine (Toradol) 30 mg IVPUSH ONETIME [facility] Ketorolac Tromethamine (Toradol) 30 mg IM ONETIME ONE Stop: 11/19/17 17:08 Last Admin: 11/19/17 17:20 Dose: 30 mg Magnesium Oxide (Magnesium Oxide) 400 mg PO TID [facility] Stop: 11/21/17 21:01 Last Admin: 11/21/17 21:04 Dose: 400 mg Metoclopramide HCl (Reglan) 10 mg IVPUSH ONETIME ONE Stop: 11/19/17 16:45 Last Admin: 11/19/17 17:26 Dose: Not Given Metoclopramide HCl (Reglan) 10 mg IM ONETIME ONE Stop: 11/19/17 17:08 Last Admin: 11/19/17 17:19 Dose: 10 mg Omeprazole (Omeprazole) 20 mg PO DAILY [facility] Oral Electrolytes (Thermotabs) 2 each PO BID [facility] Last Admin: 11/23/17 10:16 Dose: 2 each Pneumococcal Polyvalent Vaccine (Pneumovax 23) 0.5 ml IM .ONCE ONE Stop: 11/19/17 21:18 Potassium Chloride (Klor-Con M20) 60 meq PO ONETIME ONE Stop: 11/19/17 21:40 Last Admin: 11/19/17 22:27 Dose: 60 meq Potassium Chloride (Klor-Con M20) 40 meq PO Q4H [facility] Stop: 11/21/17 15:01 Last Admin: 11/21/17 14:35 Dose: 40 meq Prednisone (Prednisone) 60 mg PO ONETIME ONE Stop: 11/20/17 08:25 Last Admin: 11/20/17 08:39 Dose: 60 mg Vancomycin HCl (Vancomycin) 2,194.935 mg 15 mg/kg (2194.935 mg) IV Q12H [facility] Last Admin: 11/21/17 11:02 Dose: Not Given Vancomycin HCl (Pharmacy To Dose - Vancomycin) 0 dose .XX ASDIRECTED PRN PRN Reason: RX TO DOSE VANCOMYCIN - Problem List Review Problem List Initiated/Reviewed/Updated: Yes - My Orders Last 24 Hours: My Active Orders 11/24/17 10:00 Enoxaparin [Lovenox] 150 mg SUBCUT Q12H 11/25/17 05:11 CRP [C-REACTIVE PROTEIN] [CHEM] AM ESR [SEDIMENTATION RATE AUTO] [HEME] AM 11/26/17 05:11 CRP [C-REACTIVE PROTEIN] [CHEM] AM ESR [SEDIMENTATION RATE AUTO] [HEME] AM - Plan Plan:: Patient repeat blood is still pos for GPC per Microbiology. 2D echo completed. Will continue with intravenous anti-biotic treatment. Cefazolin? 6 g per 24 hours IV in three divided doses for 6 weeks
[2017-11-24] MEDS ORDERED: Enoxaparin 150 MG/1 ML Syringe SUBCUT SCH (10:00)
[2017-11-24] MEDS ORDERED: ceFAZolin 2 GM in Premix Bag 1 BAG IV SCH (10:30)
--- NOTE | 2017-11-24 10:45 | PCM.SN ---
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 Called [facility] for consultation, spoke to Dr. Espinal. After discussing case with her, she recommended Nafcillin or Cefazolin for antibiotic treatment as well as invasive procedure to remove the vegetation. We also got Dr. Edouard involved who agreed to evaluate patient as soon as she gets to [facility]. Informed patient's about transfer care plan. She will leave here via ground as soon as bed opens up in [place]. spa coordinator, Courtney, will let us know sometime today if not this afternoon.
--- NOTE | 2017-11-24 10:46 | PCM.DCSUM1 ---
Discharge Summary - Hospital Course Brief History: This is a 42 yo female with past medical hx/o new onset of diabetes and morbid obesity who comes in with multiple complaints of joint pain. She denies any recent trauma or falls. Her symptom is associated with headache and nausea but without vomiting. Patient was recently seen in the emergency department with similar complaints and at that time she was diagnosed with new onset of type 2 diabetes. Currently she is on metformin 500 mg twice a day for diabetic control. Patient was told she had peptic ulcers in the past by her primary care doctor but she has not had any endoscopic procedures to confirm it. Patient carries no history of autoimmune or any known rheumatologic diseases. Her initial workup in emergency department shows a WBC of 12.15, platelet count of 133, neutrophils of 86%, lymphocytes of 12%, and monocytes of 1%. Her chemistry is significant for sodium of 128, potassium of 2.1, chloride of 95, glucose of 127, hemoglobin A1c of 7.4, CK of 14, CRP of 17.8, and albumin of 2.3. Her UA is not suggestive of urinary tract infection. Her RF factor screening is negative. Her chest x-ray shows no acute abnormal findings. Patient is being admitted for diffuse polyarthralgia. - Discharge Data Discharge Date: 11/24/17 Discharge Disposition: DC/Tfer to Acute Hospital 02 Condition: Good - Discharge Diagnosis/Problem(s) (1) Subacute infective endocarditis SNOMED Code(s): 970521833, 169460575 ICD Code: I33.0 - ACUTE AND SUBACUTE INFECTIVE ENDOCARDITIS Status: Acute (2) Bacteremia SNOMED Code(s): 4637487 ICD Code: R78.81 - BACTEREMIA Status: Acute Priority: High (3) Dyslipidemia SNOMED Code(s): 229969384 ICD Code: E78.5 - HYPERLIPIDEMIA, UNSPECIFIED Status: Acute Priority: Medium (4) Hypokalemia SNOMED Code(s): 16370031 ICD Code: E87.6 - HYPOKALEMIA Status: Acute (5) Joint ache SNOMED Code(s): 94319683 ICD Code: M25.50 - PAIN IN UNSPECIFIED JOINT Status: Acute Priority: High Qualifiers: Joint pain location: unspecified Qualified Code(s): M25.50 - Pain in unspecified joint (6) Metabolic syndrome SNOMED Code(s): 539389755 ICD Code: E88.81 - METABOLIC SYNDROME Status: Acute Priority: High (7) Morbid obesity with BMI of 45.0-49.9, adult SNOMED Code(s): 220858453 ICD Code: E66.01 - MORBID (SEVERE) OBESITY DUE TO EXCESS CALORIES; Z68.42 - BODY MASS INDEX (BMI) 45.0-49.9, ADULT Status: Acute Priority: High (8) Substance abuse SNOMED Code(s): 26750810 ICD Code: F19.10 - OTHER PSYCHOACTIVE SUBSTANCE ABUSE, UNCOMPLICATED Status : Acute Priority: Medium - Patient Summary/Data Operative Procedure(s) Performed: None Complications: None Consults: Consultations 11/19/17 20:12 Consult to Case Management [CONS] Routine Consult to Global Account Executive [CONS] Routine OT Evaluation and Treatment [CONS] Routine PT Evaluation and Treatment [CONS] Routine 11/19/17 20:41 Consult to Dietary [Consult to Risk Management Internship] [CONS] Routine Labs Pending at D/C: None Recommended Follow-up Testing/Procedures: None Planned Operative Procedure(s) after DC: None Hospital Course: Patient was primarily admitted for evaluation of multiple joints pain. She had been seen and evaluated in ED with similar presentation on two separate occasions (10/26 and 10/29) and was diagnosed with myalgia and arthritis. On both times, she was provided with oral steroid and narcotic pain pill for medical management. However she came back with similar complaints on 11/19/2017 and was admitted for polyarthralgia arthritis. Her basic work up showed E. coli on her UA and with slightly elevated WBC and CRP levels of 12K and 17.8 respectively. Her RF screening was negative but the rest of her basic rheumatological and viral/tick borne disease work up were pending. On this admission, she was primarily treated with steroids and intravenous antibiotic. Once her blood culture positive for MSSA, she was immediately switched to IV Vancomycin. Patient had no clear source of infection and she was thoroughly examined for any lesions, cuts or wounds. She also had no foreign bodies such as metals or medical devices. However she did well with regimen provided and her leukocytosis and CRP levels nicely improved. At first, she was not very forth coming with her medical hx with us. But after we confronted her with positive repeat blood culture, she finally admitted to us that she recently use IVD with Meth and therefore 2D echo was immediately ordered. 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 Immediately, we called [facility] but could not get a hold of ID. So we tried [facility] and spoke to Dr. Espinal for consultation. And after discussing case with her, she felt the size was big and warrant surgical removal. We spoke to Dr. Edouard, cardio-thoracic surgeon, and agreed to see her in consultation. Patient will be admitted under the services of Dr. Smith, Hospitalist attending. She will leave via ground once transportation arrives. - Patient Instructions Diet: Usual Diet as Tolerated Activity: As Tolerated Driving: Do Not Drive Showering/Bathing: May Shower Notify Provider of: Fever, Increased Pain, Swelling and Redness, Nausea and/or Vomiting Other/Special Instructions: Transfer to [facility] under the services of Dr. Smith, Hospitalist. Drs. Selin Espinal and Keegan Edouard will be consulting. - Discharge Plan Home Medications: Home Meds Omeprazole Magnesium [Prilosec Otc] 20 mg PO DAILY #14 tablet. 10/26/17 [Rx] Ondansetron [Zofran ODT] 4 mg PO Q6H PRN #20 tab.dis 10/26/17 [Rx] Potassium Chloride 20 meq PO DAILY #30 tablet.er 10/26/17 [Rx] metFORMIN [Glucophage XR] 500 mg PO DAILY #30 tab.er 10/26/17 [Rx] Patient Handouts: Steps to Quit Smoking - Discharge Summary/Plan Comment DC Time >30 min.: Yes (45 mins) Discharge Summary/Plan Comment: Transfer to [facility] under the services of Dr. Smith, Hospitalist. Drs. Edouard and Kylie will be consulting. - General Info Date of Service: 11/24/17 Admission Dx/Problem (Free Text: Polyarthralgia Arthritis Subjective Update: Follow Up Functional Status: Reports: Pain Controlled, Tolerating Diet, Ambulating, Urinating - Review of Systems General: Denies: Fever, Weakness, Fatigue, Malaise, Night Sweats HEENT: Denies: Ear Pain, Eye Pain, Headaches, Visual Changes Pulmonary: Denies: Shortness of Breath, Pleuritic Chest Pain, Cough, Sputum, Hemoptysis, Wheezing Cardiovascular: Denies: Chest Pain, Palpitations, Dyspnea on Exertion, Edema, Lightheadedness Gastrointestinal: Denies: Abdominal Pain, Constipation, Decreased Appetite, Difficulty Swallowing, Hematochezia, Nausea, Vomiting Genitourinary: Reports: No Symptoms Musculoskeletal: Reports: Joint Pain Skin: Reports: Bruising. Denies: Cyanosis, Jaundice, Mottled, Pallor, Diaphoresis, Rash Neurological: Denies: Confusion, Dizziness, Headache, Numbness, Pre-Existing Deficit, Seizure, Syncope, Tingling, Trouble Speaking, Difficulty Walking, Weakness, Change in Speech, Gait Disturbance Psychiatric: Denies: Depression, Anxiety, Agitation, Hallucinations Systems Review Comment: No - Patient Data Vitals - Most Recent: Last Vital Signs Temp 36.3 C 11/24/17 09:14 Pulse 93 11/24/17 09:14 Resp 16 11/24/17 09:14 BP 131/81 11/24/17 09:16 Pulse Ox 97 11/24/17 09:14 Weight - Most Recent: 145.649 kg I&O - Last 24 hours: Intake & Output 11/23/17 11/24/17 11/24/17 22:59 06:59 14:59 Intake Total 3270 1585 Balance 3270 1585 Lab Results - Last 24 hrs: Laboratory Results - last 24 hr 11/19/17 11/19/17 11/20/17 Range/Units 06:25 06:25 06:25 WBC (3.98-10.04) K/mm3 RBC (3.98-5.22) M/mm3 Hgb (11.2-15.7) gm/L Hct (34.1-44.9) % MCV (79.4-94.8) fl MCH (25.6-32.2) pg MCHC (32.2-35.5) g/dl RDW Std Deviation (36.4-46.3) fL Plt Count (182-369) K/mm3 MPV (9.4-12.3) fl Neut % (Auto) (34.0-71.1) % Lymph % (Auto) (19.3-51.7) % [place] % (Auto) (4.7-12.5) % Eos % (Auto) (0.7-5.8) Baso % (Auto) (0.1-1.2) % Neut # (Auto) (1.56-6.13) K/mm3 Lymph # (Auto) (1.18-3.74) K/mm3 [place] # (Auto) (0.24-0.36) K/mm3 Eos # (Auto) (0.04-0.36) K/mm3 Baso # (Auto) (0.01-0.08) K/mm3 Manual Slide Review ESR (0-20) mm/hr Sodium (136-145) mEq/L Potassium (3.5-5.1) mEq/L Chloride (98-107) mEq/L Carbon Dioxide (21-32) mEq/L Anion Gap (5-15) BUN (7-18) mg/dL Creatinine (0.55-1.02) mg/dL Est Cr Clr Drug Dosing mL/min Estimated GFR (MDRD) (>60) mL/min BUN/Creatinine Ratio (14-18) Glucose (74-106) mg/dL POC Glucose (70-105) mg/dL Calcium (8.5-10.1) mg/dL Magnesium (1.8-2.4) mg/dl C-Reactive Protein (<1.0) mg/dL CMV IgG Ab Positive H (NEG) CMV IgM Ab Negative (NEG) EBV Capsid Ag IgG Ab Positive H (NEG) EBV Capsid Ag IgM Ab Negative (NEG) EBV Early Ag Ab Diffuse Negative (NEG) EBV Nuclear Ag IgG Ab Positive H (NEG) Ref Lab Test Name Evpcr Ref Lab Test Result See below Ref Test Perform Site Pml 11/23/17 11/23/17 11/23/17 Range/Units 11:48 17:24 21:46 WBC (3.98-10.04) K/mm3 RBC (3.98-5.22) M/mm3 Hgb (11.2-15.7) gm/L Hct (34.1-44.9) % MCV (79.4-94.8) fl MCH (25.6-32.2) pg MCHC (32.2-35.5) g/dl RDW Std Deviation (36.4-46.3) fL Plt Count (182-369) K/mm3 MPV (9.4-12.3) fl Neut % (Auto) (34.0-71.1) % Lymph % (Auto) (19.3-51.7) % [place] % (Auto) (4.7-12.5) % Eos % (Auto) (0.7-5.8) Baso % (Auto) (0.1-1.2) % Neut # (Auto) (1.56-6.13) K/mm3 Lymph # (Auto) (1.18-3.74) K/mm3 [place] # (Auto) (0.24-0.36) K/mm3 Eos # (Auto) (0.04-0.36) K/mm3 Baso # (Auto) (0.01-0.08) K/mm3 Manual Slide Review ESR (0-20) mm/hr Sodium (136-145) mEq/L Potassium (3.5-5.1) mEq/L Chloride (98-107) mEq/L Carbon Dioxide (21-32) mEq/L Anion Gap (5-15) BUN (7-18) mg/dL Creatinine (0.55-1.02) mg/dL Est Cr Clr Drug Dosing mL/min Estimated GFR (MDRD) (>60) mL/min BUN/Creatinine Ratio (14-18) Glucose (74-106) mg/dL POC Glucose 210 H 202 H 116 H (70-105) mg/dL Calcium (8.5-10.1) mg/dL Magnesium (1.8-2.4) mg/dl C-Reactive Protein (<1.0) mg/dL CMV IgG Ab (NEG) CMV IgM Ab (NEG) EBV Capsid Ag IgG Ab (NEG) EBV Capsid Ag IgM Ab (NEG) EBV Early Ag Ab Diffuse (NEG) EBV Nuclear Ag IgG Ab (NEG) Ref Lab Test Name Ref Lab Test Result Ref Test Perform Site 11/24/17 11/24/17 11/24/17 Range/Units 06:35 06:35 06:35 WBC 10.85 H (3.98-10.04) K/mm3 RBC 3.76 L (3.98-5.22) M/mm3 Hgb 10.7 L (11.2-15.7) gm/L Hct 32.8 L (34.1-44.9) % MCV 87.2 (79.4-94.8) fl MCH 28.5 (25.6-32.2) pg MCHC 32.6 (32.2-35.5) g/dl RDW Std Deviation 47.1 H (36.4-46.3) fL Plt Count 200 (182-369) K/mm3 MPV 10.3 (9.4-12.3) fl Neut % (Auto) 73.0 H (34.0-71.1) % Lymph % (Auto) 19.0 L (19.3-51.7) % [place] % (Auto) 6.6 (4.7-12.5) % Eos % (Auto) 0.4 L (0.7-5.8) Baso % (Auto) 0.1 (0.1-1.2) % Neut # (Auto) 7.92 H (1.56-6.13) K/mm3 Lymph # (Auto) 2.06 (1.18-3.74) K/mm3 [place] # (Auto) 0.72 H (0.24-0.36) K/mm3 Eos # (Auto) 0.04 (0.04-0.36) K/mm3 Baso # (Auto) 0.01 (0.01-0.08) K/mm3 Manual Slide Review Normal smear ESR 50 H (0-20) mm/hr Sodium 136 (136-145) mEq/L Potassium 3.6 (3.5-5.1) mEq/L Chloride 106 (98-107) mEq/L Carbon Dioxide 23 (21-32) mEq/L Anion Gap 10.6 (5-15) BUN 9 (7-18) mg/dL Creatinine 0.7 (0.55-1.02) mg/dL Est Cr Clr Drug Dosing 111.65 mL/min Estimated GFR (MDRD) > 60 (>60) mL/min BUN/Creatinine Ratio 12.9 L (14-18) Glucose 78 (74-106) mg/dL POC Glucose (70-105) mg/dL Calcium 8.3 L (8.5-10.1) mg/dL Magnesium 1.8 (1.8-2.4) mg/dl C-Reactive Protein 5.2 H* (<1.0) mg/dL CMV IgG Ab (NEG) CMV IgM Ab (NEG) EBV Capsid Ag IgG Ab (NEG) EBV Capsid Ag IgM Ab (NEG) EBV Early Ag Ab Diffuse (NEG) EBV Nuclear Ag IgG Ab (NEG) Ref Lab Test Name Ref Lab Test Result Ref Test Perform Site 11/24/17 Range/Units 06:40 WBC (3.98-10.04) K/mm3 RBC (3.98-5.22) M/mm3 Hgb (11.2-15.7) gm/L Hct (34.1-44.9) % MCV (79.4-94.8) fl MCH (25.6-32.2) pg MCHC (32.2-35.5) g/dl RDW Std Deviation (36.4-46.3) fL Plt Count (182-369) K/mm3 MPV (9.4-12.3) fl Neut % (Auto) (34.0-71.1) % Lymph % (Auto) (19.3-51.7) % [place] % (Auto) (4.7-12.5) % Eos % (Auto) (0.7-5.8) Baso % (Auto) (0.1-1.2) % Neut # (Auto) (1.56-6.13) K/mm3 Lymph # (Auto) (1.18-3.74) K/mm3 [place] # (Auto) (0.24-0.36) K/mm3 Eos # (Auto) (0.04-0.36) K/mm3 Baso # (Auto) (0.01-0.08) K/mm3 Manual Slide Review ESR (0-20) mm/hr Sodium (136-145) mEq/L Potassium (3.5-5.1) mEq/L Chloride (98-107) mEq/L Carbon Dioxide (21-32) mEq/L Anion Gap (5-15) BUN (7-18) mg/dL Creatinine (0.55-1.02) mg/dL Est Cr Clr Drug Dosing mL/min Estimated GFR (MDRD) (>60) mL/min BUN/Creatinine Ratio (14-18) Glucose (74-106) mg/dL POC Glucose 70 (70-105) mg/dL Calcium (8.5-10.1) mg/dL Magnesium (1.8-2.4) mg/dl C-Reactive Protein (<1.0) mg/dL CMV IgG Ab (NEG) CMV IgM Ab (NEG) EBV Capsid Ag IgG Ab (NEG) EBV Capsid Ag IgM Ab (NEG) EBV Early Ag Ab Diffuse (NEG) EBV Nuclear Ag IgG Ab (NEG) Ref Lab Test Name Ref Lab Test Result Ref Test Perform Site [facility] Results - Last 24 hrs: Microbiology 11/22/17 23:24 Aerobic Blood Culture - Preliminary Blood - Venous - Lab Draw Staphylococcus Aureus Anaerobic Blood Culture - Preliminary NO GROWTH AFTER 1 DAY 11/22/17 23:18 Aerobic Blood Culture - Preliminary Blood - Venous Gram Positive Cocci Anaerobic Blood Culture - Final 11/19/17 17:25 Aerobic Blood Culture - Final Blood - Venous Staphylococcus Aureus Anaerobic Blood Culture - Final Staphylococcus Aureus Med Orders - Current: Current Medications Acetaminophen (Tylenol) 650 mg PO Q4H PRN PRN Reason: Pain (Mild 1-3)/fever Hydrocodone Bitart/Acetaminophen ([place] 325-5 Mg) 1 tab PO Q4H PRN PRN Reason: Pain (moderate 4-6) Last Admin: 11/24/17 06:23 Dose: 1 tab Albuterol/Ipratropium (Duoneb 3.0-0.5 Mg/3 Ml) 3 ml NEB Q4H PRN PRN Reason: Shortness Of Breath/wheezing Aspirin (Aspirin) 81 mg PO DAILY [facility] Last Admin: 11/24/17 09:16 Dose: 81 mg Bisacodyl (Dulcolax) 5 mg PO DAILY PRN PRN Reason: Constipation Dextrose/Water (Dextrose 50% In Water) 50 ml IVPUSH ASDIRECTED PRN PRN Reason: Hypoglycemia Docusate Sodium (Colace) 100 mg PO BID PRN PRN Reason: Constipation Last Admin: 11/20/17 08:42 Dose: 100 mg Enoxaparin Sodium (Lovenox) 150 mg SUBCUT Q12H [facility] Glipizide (Glucotrol Xl) 5 mg PO BID [facility] Last Admin: 11/24/17 09:17 Dose: 5 mg Hydralazine HCl (Apresoline) 20 mg IVPUSH Q4H PRN PRN Reason: Hypertension Hydromorphone HCl (Dilaudid) 0.25 mg IVPUSH Q2H PRN PRN Reason: Pain (severe 7-10) Last Admin: 11/24/17 06:22 Dose: 0.25 mg Promethazine HCl 12.5 mg/ (Sodium Chloride) 50.5 mls @ 100 mls/hr IV Q6H PRN PRN Reason: Nausea/Vomiting Sodium Chloride (Normal Saline) 1,000 mls @ 100 mls/hr IV ASDIRECTED [facility] Last Admin: 11/24/17 00:39 Dose: 100 mls/hr Cefazolin Sodium/Dextrose 2 gm (/ Premix) 50 mls @ 100 mls/hr IV Q8H [facility] Insulin Aspart (Novolog) 0 unit SUBCUT QIDACANDBED [facility]; Protocol Last Admin: 11/24/17 08:00 Dose: Not Given Lisinopril (Prinivil) 10 mg PO DAILY [facility] Last Admin: 11/24/17 09:16 Dose: 10 mg Lorazepam (Ativan) 2 mg IVPUSH Q4H PRN PRN Reason: Seizures Lorazepam (Ativan) 1 mg IV Q6H PRN PRN Reason: Anxiety Last Admin: 11/21/17 21:24 Dose: 1 mg Magnesium Sulfate (Pharmacy To Dose - Magnesium Replacement) 0 dose .XX ASDIRECTED PRN PRN Reason: RX TO WATCH MAG LEVELS Metformin HCl (Glucophage) 500 mg PO DAILY [facility] Last Admin: 11/24/17 09:17 Dose: 500 mg Metoprolol Tartrate (Lopressor) 5 mg IVPUSH Q4H PRN PRN Reason: Tachycardia Ondansetron HCl (Zofran Odt) 4 mg PO Q6H PRN PRN Reason: Nausea\vomiting Ondansetron HCl (Zofran) 4 mg IV Q6H PRN PRN Reason: Nausea/Vomiting Pantoprazole Sodium (Protonix) 40 mg PO DAILY@0700 [facility] Last Admin: 11/24/17 06:45 Dose: 40 mg Polyethylene Glycol (Miralax) 17 gm PO DAILY PRN PRN Reason: Constipation Potassium Chloride (Klor-Con M20) 20 meq PO DAILY [facility] Last Admin: 11/24/17 09:17 Dose: 20 meq Potassium Chloride (Pharmacy To Dose - Potassium Replacement) 0 dose .XX ASDIRECTED PRN PRN Reason: RX TO WATCH Prednisone (Prednisone) 60 mg PO WITHBREAKFAST [facility] Last Admin: 11/24/17 06:45 Dose: 60 mg Saccharomyces Boulardii (Florastor) 250 mg PO BID [facility] Last Admin: 11/24/17 09:16 Dose: 250 mg Senna/Docusate Sodium (Senna Plus) 1 tab PO BID PRN PRN Reason: Constipation Temazepam (Restoril) 15 mg PO BEDTIME PRN PRN Reason: Sleep Last Admin: 11/23/17 22:36 Dose: 15 mg Discontinued Medications Hydromorphone HCl (Dilaudid) 1 mg IVPUSH ONETIME ONE Stop: 11/19/17 16:45 Last Admin: 11/19/17 17:25 Dose: Not Given Hydromorphone HCl (Dilaudid) 1 mg IM ONETIME ONE Stop: 11/19/17 17:07 Last Admin: 11/19/17 17:26 Dose: Not Given Hydromorphone HCl (Dilaudid) 1 mg IM ONETIME ONE Stop: 11/19/17 17:11 Last Admin: 11/19/17 17:21 Dose: 1 mg Sodium Chloride (Normal Saline) 1,000 mls @ 500 mls/hr IV ASDIRECTED [facility] Sodium Chloride (Normal Saline) 1,000 mls @ 999 mls/hr IV ASDIRECTED [facility] Last Admin: 11/19/17 18:41 Dose: 999 mls/hr Potassium Chloride 10 meq/ (Premix) 100 mls @ 100 mls/hr IV ASDIRECTED [facility] Stop: 11/19/17 19:31 Last Admin: 11/19/17 18:41 Dose: 100 mls/hr Potassium Chloride 10 meq/ (Premix) 100 mls @ 100 mls/hr IV ONETIME ONE Stop: 11/19/17 19:32 Last Admin: 11/19/17 21:49 Dose: Not Given Potassium Chloride 10 meq/ (Premix) 100 mls @ 100 mls/hr IV Q1H [facility] Stop: 11/20/17 01:29 Last Admin: 11/19/17 21:50 Dose: Not Given Vancomycin HCl 2 gm/ Sodium (Chloride) 500 mls @ 250 mls/hr IV ONETIME ONE Stop: 11/21/17 11:59 Last Admin: 11/21/17 11:31 Dose: 250 mls/hr Vancomycin HCl 1 gm/Vancomycin HCl 500 mg/ Sodium Chloride 500 mls @ 333.025 mls/hr IV Q12H [facility] Vancomycin HCl 1.5 gm/ Sodium (Chloride) 500 mls @ 330 mls/hr IV Q8H [facility] Last Admin: 11/22/17 06:45 Dose: 330 mls/hr Vancomycin HCl 1.5 gm/ Sodium (Chloride) 500 mls @ 330 mls/hr IV Q8H [facility] Last Admin: 11/23/17 06:07 Dose: 330 mls/hr Magnesium Sulfate 2 gm/ Premix 50 mls @ 25 mls/hr IV ONETIME ONE Stop: 11/22/17 12:29 Last Admin: 11/22/17 12:12 Dose: 25 mls/hr Ceftriaxone Sodium 1 gm/ (Sodium Chloride) 100 mls @ 200 mls/hr IV Q24H [facility] Last Admin: 11/23/17 16:14 Dose: 200 mls/hr Ketorolac Tromethamine (Toradol) 30 mg IVPUSH ONETIME [facility] Ketorolac Tromethamine (Toradol) 30 mg IM ONETIME ONE Stop: 11/19/17 17:08 Last Admin: 11/19/17 17:20 Dose: 30 mg Magnesium Oxide (Magnesium Oxide) 400 mg PO TID [facility] Stop: 11/21/17 21:01 Last Admin: 11/21/17 21:04 Dose: 400 mg Metoclopramide HCl (Reglan) 10 mg IVPUSH ONETIME ONE Stop: 11/19/17 16:45 Last Admin: 11/19/17 17:26 Dose: Not Given Metoclopramide HCl (Reglan) 10 mg IM ONETIME ONE Stop: 11/19/17 17:08 Last Admin: 11/19/17 17:19 Dose: 10 mg Omeprazole (Omeprazole) 20 mg PO DAILY [facility] Oral Electrolytes (Thermotabs) 2 each PO BID [facility] Last Admin: 11/23/17 10:16 Dose: 2 each Pneumococcal Polyvalent Vaccine (Pneumovax 23) 0.5 ml IM .ONCE ONE Stop: 11/19/17 21:18 Potassium Chloride (Klor-Con M20) 60 meq PO ONETIME ONE Stop: 11/19/17 21:40 Last Admin: 11/19/17 22:27 Dose: 60 meq Potassium Chloride (Klor-Con M20) 40 meq PO Q4H [facility] Stop: 11/21/17 15:01 Last Admin: 11/21/17 14:35 Dose: 40 meq Prednisone (Prednisone) 60 mg PO ONETIME ONE Stop: 11/20/17 08:25 Last Admin: 11/20/17 08:39 Dose: 60 mg Vancomycin HCl (Vancomycin) 2,194.935 mg 15 mg/kg (2194.935 mg) IV Q12H [facility] Last Admin: 11/21/17 11:02 Dose: Not Given Vancomycin HCl (Pharmacy To Dose - Vancomycin) 0 dose .XX ASDIRECTED PRN PRN Reason: RX TO DOSE VANCOMYCIN - Exam General: Reports: Alert, Oriented, Cooperative, No Acute Distress HEENT: Reports: Pupils Equal, Pupils Reactive, EOMI, Mucous Membr. Moist/[place] Neck: Reports: Supple, Trachea Midline, No JVD, No Thyromegaly Lungs: Reports: Clear to Auscultation, Normal Respiratory Effort Cardiovascular: Reports: Regular Rate, Regular Rhythm GI/Abdominal Exam: Normal Bowel Sounds, Soft, Non-Tender, No Organomegaly, No Distention, No Abnormal Bruit, No Mass (Female) Exam: Deferred Rectal (Female) Exam: Deferred Back Exam: Reports: Normal Inspection, Decreased Range of Motion Extremities: Normal Inspection, Normal Range of Motion, Non-Tender, No Pedal Edema, Normal Capillary Refill Skin: Reports: Warm, Dry, Intact, Ecchymosis Neurological: Reports: No New Focal Deficit Psy/Mental Status: Reports: Alert, Normal Affect, Normal Mood
--- NOTE | 2017-11-24 11:55 | CT ---
Head CT Technique: Multiple axial sections through the brain were obtained. Intravenous contrast was not utilized. Comparison: No previous study. Findings: Ventricles along with basal cisterns and sulci over the convexities are within normal limits for the patient's age. No abnormal parenchymal densities are seen. No evidence of intracranial hemorrhage. No midline shift or mass effect is seen. Bone window settings were reviewed which show no acute calvarial abnormality. Visualized sinuses are clear. Impression: 1. Nothing acute is seen on noncontrast head CT exam. Diagnostic code #1
--- NOTE | 2017-11-24 11:55 | CT ---
CT chest Technique: Multiple axial sections were obtained from above the lung apices inferiorly through the lung bases. Intravenous contrast was not utilized. Comparison: Prior chest x-ray of 11/19/17. Findings: Small mediastinal lymph nodes are seen believed to be within normal limits. No coronary artery calcification is seen. No pericardial thickening is seen. Heart size is normal. Small portion of the visualized upper abdominal structures have an unremarkable noncontrast CT appearance. Scattered parenchymal densities are seen throughout both lungs most prominent within the lingula. Bone window settings were reviewed which show slight degenerative change scattered within the spine. Impression: 1. Scattered areas of parenchymal density within both lungs most prominent within the lingula. Findings presumably represent multifocal pneumonia which could be due to typical or atypical (including fungal) organism. 2. No additional abnormality is seen on noncontrast CT study of the chest. Diagnostic code #3
[2017-11-24 13:00] VITALS: BP 121/80
== END 2017-11-24 12:37 | DRG 289 ==
LOC: JD.ED 16:06 → JD.MS 20:21 → OBSVTOIN 11-21 09:39 → JD.MS 11-21 09:40
PROVIDERS: ADMIT Internal Medicine; ATTEND Internal Medicine
DX: I33.0 Acute and subacute infective endocarditis (principal); R78.81 Bacteremia; E87.1 Hypo-osmolality and hyponatremia; Z68.42 Body mass index [BMI] 45.0-49.9, adult; B96.20 Unspecified Escherichia coli [E. coli] as the cause of diseases classified elsewhere; B95.61 Methicillin susceptible Staphylococcus aureus infection as the cause of diseases classified elsewhere; E11.9 Type 2 diabetes mellitus without complications; F15.10 Other stimulant abuse, uncomplicated; F12.10 Cannabis abuse, uncomplicated; K59.00 Constipation, unspecified; E66.9 Obesity, unspecified; I10 Essential (primary) hypertension; E78.5 Hyperlipidemia, unspecified; E88.81 Metabolic syndrome and other insulin resistance; E87.6 Hypokalemia; K21.9 Gastro-esophageal reflux disease without esophagitis; M25.552 Pain in left hip; R10.9 Unspecified abdominal pain; R52 Pain, unspecified; M25.551 Pain in right hip; M79.1 Myalgia; R53.83 Other fatigue; R07.9 Chest pain, unspecified; R09.3 Abnormal sputum; R50.9 Fever, unspecified; R53.81 Other malaise; R51 Headache; R06.02 Shortness of breath; F17.200 Nicotine dependence, unspecified, uncomplicated; R82.71 Bacteriuria; M25.519 Pain in unspecified shoulder; M17.0 Bilateral primary osteoarthritis of knee; R05 Cough; R53.1 Weakness; R06.00 Dyspnea, unspecified; R42 Dizziness and giddiness; R26.2 Difficulty in walking, not elsewhere classified; E83.42 Hypomagnesemia; R11.2 Nausea with vomiting, unspecified; M25.512 Pain in left shoulder; M25.511 Pain in right shoulder; M25.562 Pain in left knee; M25.561 Pain in right knee; G89.29 Other chronic pain; M54.2 Cervicalgia; M54.5 Low back pain; E66.01 Morbid (severe) obesity due to excess calories; R35.0 Frequency of micturition; Z87.11 Personal history of peptic ulcer disease; Z79.84 Long term (current) use of oral hypoglycemic drugs; Z79.899 Other long term (current) drug therapy; Z87.01 Personal history of pneumonia (recurrent)
CPT/HCPCS: 36415 ×3; 71045; 80048 ×2; 80053; 80061; 80306; 81001; 82043; 82550; 82962 ×6; 83036; 83735 ×3; 83880; 84443; 84550; 84560; 84703; 85025 ×3; 85652 ×2; 86140 ×3; 86200; 86308; 86430; 86644; 86645; 86665 ×2; 86694; 86695; 86696; 87040 ×2; 87086; 87804 ×2; 96361; 96365; 96372; 97110; 97161; 97165; 99285; A9270 ×26; J1170 ×8; J1815; J1885; J2765; J3480; J7040; 70450; 70450-26; 71250; 71250-26; 80202; 87077; 87088; 87186; 93306; 99284; J0690; J0696; J1650; J2060; J3370; J3475; J7030